=== PATIENT | female | born 1970 | race Caucasian/White ===

== ENCOUNTER 2019-06-24 08:17 | Emergency (ER) | payer BC, SELFPAY ==
[2019-06-24] VITALS (7 sets, daily range): BP systolic 158–191; BP diastolic 98–118; PULSE 83–92; RESP 15–22; TEMP 36.6; O2SAT 90–93; BMI 32.5
--- NOTE | 2019-06-24 08:33 | ED_ITS ---
Entered by Radha Chen, acting as scribe for Pérez Tucker MD Jun 24, 2019 08:17 HPI - SOB/Dyspnea General: Chief Complaint: Shortness of Breath/Dyspnea Stated Complaint: SOB Time Seen by Provider: 06/24/19 08:28 Source: patient Mode of arrival: ambulatory Limitations: no limitations History of Present Illness: HPI Narrative: 49 yo female presents with s hortness of breath. pt states this morning she woke up with increased shortness of breath. pt states she is suppose to wear a C-pap at night but she did not wear it last night due to her mouth being dry. pt states exertion, deep breath and talking makes this worse and nothing makes it better. pt denies any other symptoms at this time. MD elicited complaint: shortness of breath and pain with inspiration Onset (ago): day(s) (today) Context: occurred during exertion Timing: constant and progressively worsening Severity: moderate Exacerbating factors: exertion, talking and deep breaths Relieving factors: nothing Known history of: other (sleep apena, Afib) Associated symptoms: Deny abdominal pain, chest pain, fever(s), nausea or vomiting Treatment prior to arrival: none Related Data: Home oxygen amount: other (Cpap at night) Review of Systems General: Reports: 10 or more systems reviewed and unremarkable except in HPI and below Const: Denies: fever, chills, body aches or change in appetite Eyes: Denies: blurry vision or eye discomfort ENMT: Denies: throat pain or dental pain Card: Denies: chest pain Resp: Reports: shortness of breath GI: Denies: abdominal pain, nausea, vomiting or diarrhea : Denies: painful urination Musc: Denies: neck pain or back pain Skin/Breast: Denies: rash Neuro: Denies: headache Psych: Denies: depression Pawel/Lymph: Denies: easy bruising All/Imm: Denies: hives PFSH ED PFSH: Social History Smoking and tobacco status: never smoked Current gender identity: Female Physical Exam Const: COMMON NORMALS: no apparent distress, oriented x3 and healthy appearing HENMT: COMMON NORMALS: normocephalic and head/scalp atraumatic HEAD & SCALP: normocephalic and atraumatic Eye: COMMON NORMALS: PERRL and EOMs intact bilaterally PUPIL: Yes PERRL Neck/C-Spine: COMMON NORMALS: full ROM and supple Chest: COMMONS NORMALS: inspection of chest normal and palpation of chest normal Cardio: COMMON NORMALS: regular rate, regular rhythm and no murmurs RATE: regular rate RHYTHM: regular rhythm GI: COMMON NORMALS: normal to inspection, nondistended, normoactive bowel sounds, soft to palpation, non-tender and no masses PALPATION: Yes soft Extremity: COMMON NORMALS: normal to inspection and full ROM Neuro: COMMON NORMALS: oriented x3, moves all extremities and no focal motor deficits Psych: COMMON NORMALS: mental status grossly normal, thought process normal and cooperative THOUGHT PROCESS: normal thought process Skin: COMMON NORMALS: no rashes or lesions noted and no wounds GENERAL SKIN EXAM: no rashes or lesions noted Course Vital Signs: Vital signs: Vital Signs Temperature 98 F 06/24/19 08:22 Pulse Rate 86 06/24/19 11:51 Respiratory Rate 15 06/24/19 11:51 Blood Pressure 158/98 06/24/19 11:51 Pulse Oximetry 93 06/24/19 11:51 MDM - SOB/Dyspnea 2 MDM Narrative: Medical decision making narrative: Patient presents here with shortness of breath and was found to have mild pneumonia. Her oxygen saturations here been normal. Her white count is normal as well. Had a long discussion with her and will discharge on doxycycline. I informed her she needs to follow-up with her primary care doctor by the end of the week. She is to return to the ER if worsening. Patient understands and agrees to plan. Lab Data: Labs: Lab Results 06/24/19 06/24/19 06/24/19 Range/Units 08:45 08:45 08:45 WBC 9.1 (4.0-10.0) 10^3/ uL RBC 4.40 (4.1-5.3) 10^6/u L Hgb 13.5 (11.5-15.3) g/dL Hct 40.0 (37.0-47.0) % MCV 90.9 (81-99) fL MCH 30.7 (28.0-34.0) pg MCHC 33.8 (30.0-36.0) g/dL RDW 11.4 L (12.1-15.1) % Plt Count 255 (130-400) 10^3/c mm MPV 10.2 (7.4-10.4) fL Neut % (Auto) 80.8 % Lymph % (Auto) 9.1 % [place] % (Auto) 8.1 % Eos % (Auto) 0.6 % Baso % (Auto) 0.7 % Neut # (Auto) 7.3 (1.8-7.7) 10^3/u L Lymph # (Auto) 0.8 (0.8-4.8) 10^3/u L [place] # (Auto) 0.7 (0.2-0.9) 10^3/u L Eos # (Auto) 0.1 (0.0-0.8) 10^3/u L Baso # (Auto) 0.1 (0.0-0.1) 10^3/u L Nucleated RBC % (a uto) 0 % Nucleated RBCs # 0.0 /100WBC PT 15.10 H (10.5-13.3) SECO NDS INR 1.15 (0.8-1.2) D-Dimer 0.45 (0-0.59) ug/mIFE U Sodium 138 (136-145) mmol/L Potassium 3.2 L (3.5-5.1) mmol/L Chloride 99 (98-107) mmol/L Carbon Dioxide 20 L (22-29) mmol/L Anion Gap 22.2 H (5-19) BUN 10 (6-20) mg/dL Creatinine 1.0 H (0.5-0.9) mg/dL GFR Calculation 58.5 L (90-130) mL/min Glucose 266 H (65-115) mg/dL Calcium 9.7 (8.5-10.5) mg/dL Total Bilirubin 0.3 (0.15-1.2) mg/dL AST 53 H (0-32) U/L ALT 42 H (0-33) U/L Alkaline Phosphata se 70 (35-105) IU/L Troponin T Baselin e (0-10) ng/mL Troponin T 120 Min ralph (0-10) ng/mL NT-Pro-B Natriuret Pep 288 H (0-125) pg/mL Total Protein 8.0 (6.6-8.7) g/dL Albumin 4.1 (3.5-5.2) g/dL Globulin 3.9 (1.3-4.6) g/dL 06/24/19 06/24/19 Range/Units 08:45 10:49 WBC (4.0-10.0) 10^3/ uL RBC (4.1-5.3) 10^6/u L Hgb (11.5-15.3) g/dL Hct (37.0-47.0) % MCV (81-99) fL MCH (28.0-34.0) pg MCHC (30.0-36.0) g/dL RDW (12.1-15.1) % Plt Count (130-400) 10^3/c mm MPV (7.4-10.4) fL Neut % (Auto) % Lymph % (Auto) % [place] % (Auto) % Eos % (Auto) % Baso % (Auto) % Neut # (Auto) (1.8-7.7) 10^3/u L Lymph # (Auto) (0.8-4.8) 10^3/u L [place] # (Auto) (0.2-0.9) 10^3/u L Eos # (Auto) (0.0-0.8) 10^3/u L Baso # (Auto) (0.0-0.1) 10^3/u L Nucleated RBC % (a uto) % Nucleated RBCs # /100WBC PT (10.5-13.3) SECO NDS INR (0.8-1.2) D-Dimer (0-0.59) ug/mIFE U Sodium (136-145) mmol/L Potassium (3.5-5.1) mmol/L Chloride (98-107) mmol/L Carbon Dioxide (22-29) mmol/L Anion Gap (5-19) BUN (6-20) mg/dL Creatinine (0.5-0.9) mg/dL GFR Calculation (90-130) mL/min Glucose (65-115) mg/dL Calcium (8.5-10.5) mg/dL Total Bilirubin (0.15-1.2) mg/dL AST (0-32) U/L ALT (0-33) U/L Alkaline Phosphata se (35-105) IU/L Troponin T Baselin e 20 H (0-10) ng/mL Troponin T 120 Min ralph 17.29 H (0-10) ng/mL NT-Pro-B Natriuret Pep (0-125) pg/mL Total Protein (6.6-8.7) g/dL Albumin (3.5-5.2) g/dL Globulin (1.3-4.6) g/dL Imaging Data^: CXR: Attestation: I personally reviewed and interpreted this imaging study as follows: Radiologist's impression: Patient: Bharti Lawrence Unit #: [id number] : 1970 Age/Sex: 49 / F ADM Date: 06/24/19 Loc: ER Room/Bed: Attending Dr: Ordering Provider/Ordering MD: Pérez Tucker MD Date of Service: 06/24/19 Procedure(s): XR chest 1V portable [id number] Accession Number(s): [id number] Report Number: [id number] WS: [id number] XR chest 1V portable [id number] REASON FOR EXAM: cp FINDINGS: This study shows a patchy infiltrate in the right middle lobe segment. These findings were not evident on February 07, 2019. There is also evidence of a low-grade infiltrate in the left lower lung. The heart and mediastinal interfaces were normal. The hilum and apices normal. No osseous abnormalities. XR/XR chest 1V portable [id number] IMPRESSION: Early pneumonia right middle lobe and left lower lobe. EKG Data^: EKG 1: Attestation: I personally reviewed and interpreted this EKG as follows: EKG Interpretation Date: 06/24/19 EKG interpretation time: 08:40 Interpretation: nsr hr [address] or t wave abnormalities EKG 2: Attestation: I personally reviewed and interpreted this EKG as follows: EKG Interpretation Date: 06/24/19 EKG interpretation time: 11:19 Interpretation: nsr hr [address] or t wave abnormalities qrs 80 qtc 421 Discharge Plan Discharge Patient Disposition: Home, Self-Care Clinical Impression: Community acquired pneumonia Qualifiers: Laterality: right Lung location: unspecified part of lung Qualified Code(s): J18.9 - Pneumonia, unspecified organism Condition: Stable Prescriptions: New doxycycline hyclate 100 mg capsule 100 mg PO BID 10 Days Qty: 20 RF: 0 Discharge Orders: Discharge Order (Routine); Ordered 06/24/19 Ordered By: Pérez Tucker Referrals: Ana Maria Flores MD [Family Provider] - 4-7 days Discharge Diet: Advance as tolerated Discharge Activity: Resume usual activity Patient Instructions: Community-acquired Pneumonia (ED) Discharge Date/Time: 06/24/19 11:52 Coding Level of Care Code ED Heel Gouger for Chg Fwd Exam Comprehensive The documentation recorded by the Gustavo spencer Bridget Annette, accurately reflects the service I personally performed and the decisions made by Garrett rosario Korby, MD Jun 24, 2019 08:17
--- NOTE | 2019-06-24 08:37 | XR_ITS ---
WS: [id number] XR chest 1V portable [id number] REASON FOR EXAM: cp FINDINGS: This study shows a patchy infiltrate in the right middle lobe segment. These findings were not evident on February 07, 2019. There is also evidence of a low-grade infiltrate in the left lower petra ng. The heart and mediastinal interfaces were normal. The hilum and apices normal. No osseous abnormalities. XR/XR chest 1V portable [id number] IMPRESSION: Early pneumonia right middle lobe and left lower lobe.
--- NOTE | 2019-06-24 08:38 | ECG_ITS ---
Measurements Intervals [place] Rate: 0 P: GA: 0 QRS: 0 QRSD: 0 T: 0 QT: 0 QTc: 0 SINUS BRADYCARDIA INDETERMINATE AXIS ABNORMAL RHYTHM ECG WARNING: DATA QUALITY MAY AFFECT INTERPRETATION Compared to ECG 02/15/2019 10:23:54 There is no significant change Electronically Signed On 06-24-2019 19:05:54 CLASS C DRIVER by Sandra Hadley M.D. [id number]
[2019-06-24 08:50] LABS: Basophils # 0.1 10^3/uL (0.0-0.1); Basophils % 0.7 %; Eosinophils # 0.1 10^3/uL (0.0-0.8); Eosinophils % 0.6 %; Hemoglobin 13.5 g/dL (11.5-15.3); Lymphocytes # 0.8 10^3/uL (0.8-4.8); Lymphocytes % 9.1 %; Mean Corpuscular HGB Conc 33.8 g/dL (30.0-36.0); Mean Corpuscular Hemoglobin 30.7 pg (28.0-34.0); Mean Corpuscular Volume 90.9 fL (81-99); Mean Platelet Volume 10.2 fL (7.4-10.4); Monocytes # 0.7 10^3/uL (0.2-0.9); Monocytes % 8.1 %; Neutrophils # 7.3 10^3/uL (1.8-7.7); Neutrophils % 80.8 %; Nucleated Red Blood Cells % 0 %; Platelet Count 255 10^3/cmm (130-400); Red Cell Distribution Width 11.4 % (12.1-15.1); White Blood Count 9.1 10^3/uL (4.0-10.0)
[2019-06-24] MEDS: ipratropium-albuterol 3 mL Neb INHALATION (08:56)
[2019-06-24 09:01] LABS: INR 1.15 (0.8-1.2)
[2019-06-24 09:04] LABS: D Dimer 0.45 ug/mIFEU (0-0.59)
[2019-06-24 09:11] LABS: Troponin(5th) Baseline 20 ng/mL (0-10)
[2019-06-24 09:19] LABS: Alanine Aminotransferase 42 U/L (0-33); Albumin Level 4.1 g/dL (3.5-5.2); Alkaline Phosphatase 70 IU/L (35-105); Anion Gap 22.2 (5-19); Aspartate Amino Transferase 53 U/L (0-32); Blood Urea Nitrogen 10 mg/dL (6-20); Calcium 9.7 mg/dL (8.5-10.5); Carbon Dioxide 20 mmol/L (22-29); Chloride 99 mmol/L (98-107); Globulin 3.9 g/dL (1.3-4.6); Glomerular Filtration Rate 58.5 mL/min (90-130); Glucose 266 mg/dL (65-115); NT Pro B Type Natriuretic Pept 288 pg/mL (0-125); Potassium 3.2 mmol/L (3.5-5.1); Sodium 138 mmol/L (136-145); Total Bilirubin 0.3 mg/dL (0.15-1.2)
[2019-06-24] MEDS: dexamethasone 10 mg/mL INJ IVP (10:17)
[2019-06-24] MEDS: doxycycline 100 MG in sodium chloride 0.9% (plus) 100 ML IV (10:21)
--- NOTE | 2019-06-24 10:38 | ECG_ITS ---
Measurements Intervals [place] Rate: 85 P: 20 MI: 133 QRS: 18 QRSD: 80 T: 53 QT: 379 QTc: 452 SINUS RHYTHM Compared to ECG 02/15/2019 10:23:54 No significant changes Electronically Signed On 06-24-2019 19:10:27 GROUP HOME PARAPROFESSIONAL by Sandra Hadley M.D. [email or web address]
[2019-06-24 11:17] LABS: Troponin 5 2HR 17.29 ng/mL (0-10)
[2019-06-24 11:55] LABS: Troponin 5 2HR Delta -2.71 ABS# (0-10)
== END 2019-06-24 11:52 | disposition home or self-care (01) ==
PROVIDERS: Emergency Provider Emergency Medicine; Family Provider Internal Medicine
DX: J18.9 Pneumonia, unspecified organism (principal); G47.30 Sleep apnea, unspecified; I48.91 Unspecified atrial fibrillation; Z99.89 Dependence on other enabling machines and devices
CPT/HCPCS: 36415; 71045; 80053; 83880; 84484; 85025; 85378; 85610; 93005; 94640; 96365; 96375; 99283; 99284; J1100; J3490; J7050; J7611

== ENCOUNTER 2019-06-28 18:06 | Outpatient (CLI) | payer BC, SELFPAY ==
--- NOTE | 2019-06-28 18:35 | XR_ITS ---
WS: [id number] Chest 2 views, 06/28/2019 Clinical Data: PNEUMONIA Comparison: Portable chest, 06/24/2019. Findings: No nodules, masses or effusions are seen. The heart is normal. The pulmonary vascularity is not increased. No pneumonia or pneumothorax is seen. The previously noted right lung infiltrate has cleared. XR/XR chest 2V* [id number] Impression: Negative chest.
[2019-06-28 18:54] LABS: Basophils # 0.1 10^3/uL (0.0-0.1); Basophils % 0.6 %; Eosinophils % 0.3 %; Hematocrit 46.8 % (37.0-47.0); Hemoglobin 15.6 g/dL (11.5-15.3); Lymphocytes # 1.2 10^3/uL (0.8-4.8); Lymphocytes % 10.1 %; Mean Corpuscular HGB Conc 33.3 g/dL (30.0-36.0); Mean Corpuscular Hemoglobin 31.4 pg (28.0-34.0); Mean Corpuscular Volume 94.2 fL (81-99); Mean Platelet Volume 10.8 fL (7.4-10.4); Monocytes % 8.3 %; Neutrophils # 9.3 10^3/uL (1.8-7.7); Neutrophils % 80.2 %; Nucleated Red Blood Cells % 0 %; Platelet Count 287 10^3/cmm (130-400); Red Blood Count 4.97 10^6/uL (4.1-5.3); Red Cell Distribution Width 11.7 % (12.1-15.1); White Blood Count 11.6 10^3/uL (4.0-10.0)
[2019-06-28 18:58] LABS: Alanine Aminotransferase 50 U/L (0-33); Albumin Level 4.6 g/dL (3.5-5.2); Alkaline Phosphatase 79 IU/L (35-105); Anion Gap 24.4 (5-19); Aspartate Amino Transferase 55 U/L (0-32); Blood Urea Nitrogen 24 mg/dL (6-20); Calcium 10.9 mg/dL (8.5-10.5); Carbon Dioxide 20 mmol/L (22-29); Chloride 94 mmol/L (98-107); Globulin 4.6 g/dL (1.3-4.6); Glucose 179 mg/dL (65-115); Potassium 3.4 mmol/L (3.5-5.1); Sodium 135 mmol/L (136-145); Total Bilirubin 0.8 mg/dL (0.15-1.2); Total Protein 9.2 g/dL (6.6-8.7)
== END 2019-06-28 18:07 | disposition home or self-care (01) ==
LOC: LAB 18:09
PROVIDERS: Family Provider Internal Medicine; Visit Provider Nurse Practitioner Family
DX: J18.9 Pneumonia, unspecified organism (principal); R05 Cough; R06.00 Dyspnea, unspecified
CPT/HCPCS: 36415; 71046; 80053; 85025

== ENCOUNTER 2019-07-14 11:43 | Emergency (ER) | payer BC, SELFPAY ==
[2019-07-14 11:46] VITALS: BP 139/114; PULSE 100; RESP 16; TEMP 36.7; O2SAT 96; BMI 31.7
--- NOTE | 2019-07-14 12:03 | ECG_ITS ---
Measurements Intervals [place] Rate: 98 P: 45 [place]: 131 QRS: 61 QRSD: 82 T: 49 QT: 358 QTc: 459 SINUS RHYTHM Compared to ECG 06/24/2019 11:19:16 No significant changes Electronically Signed On 07-14-2019 19:33:58 CDT by Boone Sherwood M.D. [email or web address]
[2019-07-14 12:26] LABS: Basophils % 0.6 %; Eosinophils % 0.3 %; Hematocrit 37.8 % (37.0-47.0); Hemoglobin 12.5 g/dL (11.5-15.3); Lymphocytes # 0.5 10^3/uL (0.8-4.8); Lymphocytes % 7.4 %; Mean Corpuscular HGB Conc 33.1 g/dL (30.0-36.0); Mean Corpuscular Hemoglobin 30.4 pg (28.0-34.0); Mean Platelet Volume 10.3 fL (7.4-10.4); Monocytes # 0.5 10^3/uL (0.2-0.9); Monocytes % 7.2 %; Neutrophils # 6.1 10^3/uL (1.8-7.7); Neutrophils % 84.2 %; Nucleated Red Blood Cells % 0 %; Platelet Count 209 10^3/cmm (130-400); Red Blood Count 4.11 10^6/uL (4.1-5.3); Red Cell Distribution Width 11.8 % (12.1-15.1); White Blood Count 7.2 10^3/uL (4.0-10.0)
[2019-07-14 12:41] LABS: Alanine Aminotransferase 56 U/L (0-33); Albumin Level 3.9 g/dL (3.5-5.2); Alkaline Phosphatase 72 IU/L (35-105); Anion Gap 20.5 (5-19); Aspartate Amino Transferase 78 U/L (0-32); Blood Urea Nitrogen 9 mg/dL (6-20); Calcium 10.2 mg/dL (8.5-10.5); Carbon Dioxide 21 mmol/L (22-29); Chloride 99 mmol/L (98-107); D Dimer 0.41 ug/mIFEU (0-0.59); Globulin 3.9 g/dL (1.3-4.6); Glomerular Filtration Rate 58.5 mL/min (90-130); Glucose 277 mg/dL (65-115); Osmolality Calculated 290 mOsm/kg (285-295); Potassium 3.5 mmol/L (3.5-5.1); Sodium 137 mmol/L (136-145); Total Bilirubin 0.7 mg/dL (0.15-1.2); Total Protein 7.8 g/dL (6.6-8.7)
[2019-07-14 12:43] LABS: Troponin(5th) Baseline 16 ng/mL (0-10)
--- NOTE | 2019-07-14 12:56 | XR_ITS ---
WS: [id number] Portable AP upright chest, 07/14/2019 Clinical Data: cough Comparison: PA and lateral chest, 06/28/2019 Findings: No nodules, masses or effusions are seen. The heart is normal. The pulmonary vascularity is not increased. No pneumonia or pneumothorax is seen. There is still haziness at the left cardiophren ic angle above the diaphragm but this probably represents atelectasis. There is still a mild residual opacity in the anterior segment of the right upper lobe. XR/XR chest 1V portable [id number] Impression: 1. Minimal opacities in the anterior segment of the right upper lobe and in the lingula of the left upper lobe unchanged. 2. No acute cardiopulmonary disease is seen.
--- NOTE | 2019-07-14 12:56 | ED_ITS ---
HPI - Chest Pain General: Chief Complaint: Chest Pain Stated Complaint: SOB, CHEST IS TIGHT Time Seen by Provider: 07/14/19 12:53 History of Present Illness: HPI narrative: Cough x2 weeks. Sent from Dr. Becerra's office with suspected high d-dimer. D-dimer is negative here. Patient said she has had a nonproductive cough for 2 weeks and it is seems to be worsening. Was diagnosed bronchitis and has been on her second round antibiotics MD complaint: other (Cough) Onset (ago): week(s) Timing of current episode: constant Prior episodes: Yes Context: recent illness Associated symptoms: Deny abdominal pain, dyspnea, fever(s), nausea or vomiting Review of Systems Const: Denies: fever, chills or body aches Eyes: Denies: change in vision or blurry vision ENMT: Denies: throat pain or nasal congestion Card: Denies: chest pain or shortness of breath on exertion Resp: Reports: non-productive cough; Denies: shortness of breath or productive cough GI: Denies: abdominal pain, nausea or vomiting Musc: Denies: extremity pain Skin/Breast: Denies: rash Neuro: Denies: headache Psych: Denies: anxiety or depression Pawel/Lymph: Denies: easy bruising PFSH ED PFSH: Social History Smoking and tobacco status: former smoker Current gender identity: Female Physical Exam Const: COMMON NORMALS: no apparent distress, average body habitus and oriented x3 HENMT: COMMON NORMALS: normocephalic HEAD & SCALP: normal to inspection and normocephalic FACE & SINUS: normal facial exam Eye: COMMON NORMALS: conjunctivae normal GENERAL EYE: normal appearance of both eyes CONJUNCTIVA: Yes conjunctivae normal Neck/C-Spine: COMMON NORMALS: no JVD Chest: COMMONS NORMALS: inspection of chest normal Resp: COMMON NORMALS: normal respiratory effort and clear to auscultation bilaterally AUSCULTATION: clear to auscultation bilaterally Cardio: COMMON NORMALS: no JVD, regular rate and regular rhythm RATE: regular rate RHYTHM: regular rhythm GI: COMMON NORMALS: normal to inspection, nondistended, normoactive bowel sounds Extremity: COMMON NORMALS: normal to inspection and full ROM Neuro: COMMON NORMALS: oriented x3 Course Vital Signs: Vital signs: Vital Signs Temperature 98.1 F 03/11/20 11:46 Pulse Rate 100 07/14/19 11:46 Respiratory Rate 16 07/14/19 11:46 Blood Pressure 139/114 07/14/19 11:46 Pulse Oximetry 96 07/14/19 11:46 MDM - Chest Pain Lab Data: Labs: Lab Results 07/14/19 07/14/19 07/14/19 Range/Units 12:14 12:14 12:14 WBC 7.2 (4.0-10.0) 10^3/ uL RBC 4.11 (4.1-5.3) 10^6/u L Hgb 12.5 (11.5-15.3) g/dL Hct 37.8 (37.0-47.0) % MCV 92.0 (81-99) fL MCH 30.4 (28.0-34.0) pg MCHC 33.1 (30.0-36.0) g/dL RDW 11.8 L (12.1-15.1) % Plt Count 209 (130-400) 10^3/c mm MPV 10.3 (7.4-10.4) fL Neut % (Auto) 84.2 % Lymph % (Auto) 7.4 % [place] % (Auto) 7.2 % Eos % (Auto) 0.3 % Baso % (Auto) 0.6 % Neut # (Auto) 6.1 (1.8-7.7) 10^3/u L Lymph # (Auto) 0.5 L (0.8-4.8) 10^3/u L [place] # (Auto) 0.5 (0.2-0.9) 10^3/u L Eos # (Auto) 0.0 (0.0-0.8) 10^3/u L Baso # (Auto) 0.0 (0.0-0.1) 10^3/u L Nucleated RBC % (a uto) 0 % Nucleated RBCs # 0.0 /100WBC D-Dimer 0.41 (0-0.59) ug/mIFE U Sodium 137 (136-145) mmol/L Potassium 3.5 (3.5-5.1) mmol/L Chloride 99 (98-107) mmol/L Carbon Dioxide 21 L (22-29) mmol/L Anion Gap 20.5 H (5-19) BUN 9 (6-20) mg/dL Creatinine 1.0 H (0.5-0.9) mg/dL GFR Calculation 58.5 L (90-130) mL/min Glucose 277 H (65-115) mg/dL Calculated Osmolal ity 290 (285-295) mOsm/k g Calcium 10.2 (8.5-10.5) mg/dL Total Bilirubin 0.7 (0.15-1.2) mg/dL AST 78 H (0-32) U/L ALT 56 H (0-33) U/L Alkaline Phosphata se 72 (35-105) IU/L Troponin T Baselin e (0-10) ng/mL Total Protein 7.8 (6.6-8.7) g/dL Albumin 3.9 (3.5-5.2) g/dL Globulin 3.9 (1.3-4.6) g/dL 07/14/19 Range/Units 12:14 WBC (4.0-10.0) 10^3/ uL RBC (4.1-5.3) 10^6/u L Hgb (11.5-15.3) g/dL Hct (37.0-47.0) % MCV (81-99) fL MCH (28.0-34.0) pg MCHC (30.0-36.0) g/dL RDW (12.1-15.1) % Plt Count (130-400) 10^3/c mm MPV (7.4-10.4) fL Neut % (Auto) % Lymph % (Auto) % [place] % (Auto) % Eos % (Auto) % Baso % (Auto) % Neut # (Auto) (1.8-7.7) 10^3/u L Lymph # (Auto) (0.8-4.8) 10^3/u L [place] # (Auto) (0.2-0.9) 10^3/u L Eos # (Auto) (0.0-0.8) 10^3/u L Baso # (Auto) (0.0-0.1) 10^3/u L Nucleated RBC % (a uto) % Nucleated RBCs # /100WBC D-Dimer (0-0.59) ug/mIFE U Sodium (136-145) mmol/L Potassium (3.5-5.1) mmol/L Chloride (98-107) mmol/L Carbon Dioxide (22-29) mmol/L Anion Gap (5-19) BUN (6-20) mg/dL Creatinine (0.5-0.9) mg/dL GFR Calculation (90-130) mL/min Glucose (65-115) mg/dL Calculated Osmolal ity (285-295) mOsm/k g Calcium (8.5-10.5) mg/dL Total Bilirubin (0.15-1.2) mg/dL AST (0-32) U/L ALT (0-33) U/L Alkaline Phosphata se (35-105) IU/L Troponin T Baselin e 16 H (0-10) ng/mL Total Protein (6.6-8.7) g/dL Albumin (3.5-5.2) g/dL Globulin (1.3-4.6) g/dL Coding Level of Care Code ED Electric Melt Operator for Chg Horace
[2019-07-14 13:36] VITALS: BP 174/102; PULSE 100; RESP 20; O2SAT 93
== END 2019-07-14 13:37 | disposition home or self-care (01) ==
LOC: ER 13:37
PROVIDERS: Emergency Medicine; Emergency Provider Nurse Practitioner Family; Family Provider Internal Medicine
DX: R07.89 Other chest pain (principal); R06.02 Shortness of breath; R05 Cough; Z87.891 Personal history of nicotine dependence
CPT/HCPCS: 12345; 71045; 80053; 84484; 85025; 85378; 93005; 99281; 99283

== ENCOUNTER 2019-08-26 12:23 | Outpatient (CLI) | payer BC, SELFPAY ==
--- NOTE | 2019-08-26 12:45 | CT_ITS ---
WS: [id number] CT CHEST AND ABDOMEN WITH CONTRAST HISTORY: DYSPNEA AT REST/PANCREATITIS/ NECROSIS? TECHNIQUE: Axial imaging is performed through the chest and abdomen IV contrast. Sagittal and coronal reformats. All CT scans at [facility] use at least one of these dose optimization techni ques: automated exposure control; mA and/or kV adjustment per patient size (includes targeted exams w here dose is matched to clinical indication); or iterative reconstruction. CONTRAST: Omnipaque 300; 95 mL IV. DLP: 2031.82 mGycm COMPARISON: None available. Chest CT: Pulmonary hyperexpansion with chronic emphysema. There are a few very subtle groundglass opacificatio ns scattered throughout the lungs. Mild tree-in-bud airspace disease within the periphery and greates t at the lung bases and at the lingula and RIGHT middle lobe. There is also evidence for prior granul omatous disease. No pericardial or pleural effusions. No significant lymphadenopathy. Mild atherosclerosis aorta. Lobulated mass measuring 2.0 cm in the LEFT breast has been previously described by mammography and s table. Abdomen CT: Marked hepatomegaly with hepatic steatosis. Liver extends over a length of 21 cm. No bile duct dilata tion or mass. Portal vein is patent. Gallbladder: Normal. Pancreas: There is mild edema and stranding surrounding the pancreas. No fluid or pseudocyst. Pancrea tic duct is normal size. Small amount of air near the pancreatic head which may be a duodenal diverti culum. Spleen: Normal size with granulomata. Normal adrenal glands. Right kidney: Normal. Left kidney: Normal. Abdominal aorta: Mild atherosclerosis. Gastrointestinal tract: As visualized are normal. Suspect a small duodenal diverticulum near the panc reatic head. Osseous structures: Lumbar spondylosis. No osseous destructions. CT/CT chest abdomen w con* IMPRESSION: 1. Mid and lower lung tree-in-bud opacifications. Most likely due to endobronc hial pneumonia or atypical pneumonia. 2. Chronic emphysema. 3. Severe hepatomegaly and hepatic steatosis. 4. Mild pancreatitis without hemorrhage or pseudocyst. 5. Long-term stability 2.0 cm LEFT breast mass.
[2019-08-26] MEDS: iohexol 300 mg/mL 100 mL Btl IV (13:35)
== END 2019-08-26 12:24 | disposition home or self-care (01) ==
LOC: RADWPI 12:27
PROVIDERS: Family Provider Internal Medicine; PCP Internal Medicine; Visit Provider Internal Medicine
DX: R06.09 Other forms of dyspnea (principal); J43.9 Emphysema, unspecified; R16.0 Hepatomegaly, not elsewhere classified; K76.0 Fatty (change of) liver, not elsewhere classified; K85.90 Acute pancreatitis without necrosis or infection, unspecified; N63.20 Unspecified lump in the left breast, unspecified quadrant
CPT/HCPCS: 71260; 74160; Q9967

== ENCOUNTER 2019-11-24 11:04 | Outpatient (CLI) | payer BC, SELFPAY ==
--- NOTE | 2019-11-24 11:00 | USCV_ITS ---
Bharti Lawrence Age: 49 Gender: F : 1970 Exam Date: 11/24/2019 11:36 Ordering Phys: Mu Wilson MD Technologist: Dottie Verdugo Exam Location: [facility] [place] Indication: SHORT OF BREATH BP: / HR: 85 Rhythm: Sinus Technical Quality: Good MEASUREMENTS (Male / Female) Normal Values 2D ECHO LV Diastolic Diameter PLAX 3.8 cm 4.2 - 5.9 / 3.9 - 5.3 cm LV Systolic Diameter PLAX 1.6 cm IVS Diastolic Thickness 1.4 cm 0.6 - 1.0 / 0.6 - 0.9 cm IVS Systolic Thickness 1.7 cm LVPW Diastolic Thickness 0.8 cm 0.6 - 1.0 / 0.6 - 0.9 cm LVPW Systolic Thickness 2.4 cm LVOT Diameter 2.1 cm LV Ejection Fraction 2D Teich 88.7 % LV Ejection Fraction MOD 2C 80.4 % LV Ejection Fraction 2C AL 84.0 % LA Diameter 3.2 cm LA Width 2.9 cm LA Height 3.6 cm RA Width 3.2 cm RA Height 4.2 cm M-MODE LV Diastolic Diameter MM 4.3 cm 4.2 - 5.9 / 3.9 - 5.3 cm LV Systolic Diameter MM 1.8 cm LV Ejection Fraction MM Teich 88.0 % IVS Diastolic Thickness MM 1.3 cm 0.6 - 1.0 / 0.6 - 0.9 cm IVS Systolic Thickness MM 1.8 cm LVPW Diastolic Thickness MM 1.1 cm 0.6 - 1.0 / 0.6 - 0.9 cm LVPW Systolic Thickness MM 2.2 cm Aortic Annulus Diameter 3.1 cm LA Ao Ratio MM 1.0 MV E Point Septal Separation 0.3 cm DOPPLER AV Peak Velocity 157.0 cm/s LVOT Peak Velocity 129.0 cm/s AV Area Cont Eq vti 3.1 cm squared AV Area Cont Eq pk 2.7 cm squared MV Peak Velocity 92.0 cm/s MV Area PHT 4.4 cm squared Mitral E to A Ratio 0.6 MV E' Velocity 9.0 cm/s Mitral E to MV E' Ratio 8.0 Mitral E to LV E' Lateral Ratio 6.8 Mitral E to LV E' Septal Ratio 10.0 TR Peak Velocity 129.0 cm/s TR Peak Gradient 6.6 mmHg Right Atrial Pressure 3.0 mmHg Pulmonary Artery Systolic Pressu 9.7 mmHg PV Peak Velocity 121.0 cm/s RV Acceleration Time 0.1 s FINDINGS Left Ventricle Normal left ventricular cavity size. Mild left ventricular hypertrophy. Normal left ventricular systolic function. No regional wall motion abnormalities. Grade I/IV diastolic dysfunction (abnormal relaxation filling pattern), normal to mildly elevated filling pressures. Left ventricular ejection fraction is estimated at 65 %. Right Ventricle Normal right ventricular size and systolic function. Normal right ventricular systolic pressure. Right Atrium The right atrium is normal in size. Left Atrium The left atrium is normal in size. Mitral Valve Structurally normal mitral valve without significant stenosis or prolapse. There is no mitral regurgitation. Aortic Valve Structurally normal aortic valve without significant sclerosis or stenosis. There is no aortic regurgitation. Tricuspid Valve Structurally normal tricuspid valve. Trace tricuspid valve regurgitation. Pulmonic Valve Pulmonic valve not well visualized. Pericardium There is a tiny pericardial effusion which is hemodynamically insignificant. Aorta Normal ascending aorta dimension. CONCLUSIONS Normal left ventricular cavity size. Mild left ventricular hypertrophy. Normal left ventricular systolic function. No regional wall motion abnormalities. Grade I/IV diastolic dysfunction (abnormal relaxation filling pattern), normal to mildly elevated filling pressures. Left ventricular ejection fraction is estimated at 65 %. There is a tiny pericardial effusion which is hemodynamically insignificant. There are no prior echocardiogram studies to compare. Dr. Boone Sherwood MD (Electronically Signed) Final Date: 24 November 2019 17:01 S
== END 2019-11-24 11:05 | disposition home or self-care (01) ==
LOC: RT 11:09 → RAD 11:11
PROVIDERS: Family Provider Internal Medicine; PCP Internal Medicine; Visit Provider Internal Medicine Critical Care Medicine
DX: R06.02 Shortness of breath (principal); I51.81 Takotsubo syndrome
CPT/HCPCS: 93306

== ENCOUNTER 2019-11-29 12:22 | Outpatient (CLI) | payer BC, SELFPAY ==
[2019-11-29 15:21] VITALS: O2SAT 97
--- NOTE | 2019-11-29 15:34 | PFTS_ITS ---
Date of Study:11/29/19 Date of Dictation: MECHANICS: Forced vital capacity (FVC) is normal. Forced expiratory volume in one second (FEV1) is normal. FEV1/FVC is normal. FLOW VOLUME LOOP: Normal. LUNG VOLUMES: Unable to do because of claustrophobia DIFFUSING CAPACITY FOR CARBON MONOXIDE: Mild reduced INTERPRETATION: The pulmonary function tests are normal. There is no significant postbronchodilator response. Lung volumes were not performed because of claustrophobia. Gas exchange (DLCO) is mildly reduced. MTDD
== END 2019-11-29 12:23 | disposition home or self-care (01) ==
PROVIDERS: Family Provider Internal Medicine; PCP Internal Medicine; Visit Provider Internal Medicine Critical Care Medicine
DX: J43.9 Emphysema, unspecified (principal)
CPT/HCPCS: 94060; 94729; J7611

== ENCOUNTER 2020-02-11 11:26 | Outpatient (CLI) | payer BC, SELFPAY ==
--- NOTE | 2020-02-11 11:36 | MM_ITS ---
WS: [id number] Bilateral screening digital mammogram, 02/11/2020 Clinical Data: SCREENING Comparison: 10/12/2018, 07/25/2017, 07/11/2015, 04/11/2014, 12/30/2012, 03/20/2011, 02/21/2010, 02/24/2009, 02/18/2008. Findings: The breast parenchymal pattern shows fat replacement. No spiculated masses or clustered calcification s are seen. There are no secondary signs of carcinoma. The well-defined central left lung nodule marycarmen uring 2.4 cm has not changed. However there is a small density measuring 1.02 x 1.46 cm in the inferi or aspect of the left breast seen on only on the MLO view. This density has developed since the last mammogram. MM/[place] [id number] Impression: 1. 1.46 x 1.02 density in the inferior aspect of the left breast seen only on the MLO view. 2. Recommend ML view and exaggerated CC view of the left breast. 3. Recommend left breast ultrasound. BIRADS: 0-Incomplete: Need additional imaging evaluation FOLLOW UP: See Report The CAD design checker was used.
== END 2020-02-11 11:27 | disposition home or self-care (01) ==
LOC: RADSHAW 11:34
PROVIDERS: PCP Internal Medicine; Visit Provider Internal Medicine
DX: Z12.31 Encounter for screening mammogram for malignant neoplasm of breast (principal); N63.20 Unspecified lump in the left breast, unspecified quadrant
CPT/HCPCS: 77067

== ENCOUNTER 2020-03-07 11:32 | Outpatient (CLI) | payer BC, SELFPAY ==
--- NOTE | 2020-03-07 11:38 | MM_ITS ---
WS: [id number] breast diagnostic digital mammogram, 03/07/2020 Clinical Data: ABNORMAL MAMMOGRAM LT BREAST Comparison: 03/07/2020, 10/12/2018. Findings: The well-defined left breast density in the central portion of the left breast has not changed. The i ll-defined density in the inferior aspect of the left breast is not seen on the compression cc view. It is seen in the inferior aspect of the left breast on the ML and MLO compression view. It measures 0.71 x 1.31 cm.. There are no associated calcifications. MM/[place] [id number] Impression: 1. Left breast ultrasound. 2. Nonspecific left breast density inferior aspect left breast. BIRADS: 3-Probably Benign FOLLOW UP: See Report The CAD program checker was used.
--- NOTE | 2020-03-07 11:38 | US_ITS ---
WS: [id number] Left breast ultrasound, 03/07/2020 Clinical Data: ABNORMAL MAMMOGRAM LT BREAST Comparison: None. Findings: In the central portion of the left breast at 1:00 2 cm from the nipple the well-defined density shows a definite border with internal echoes. There are also septations. Because this is not changed for s everal years no biopsy is necessary. This lesion measures 1.33 x 2.24 x 2.3 cm. The ill-defined density in the inferior left breast was not easily imaged imaged by ultrasound. The ultrasound images were done at 3-4cm from the nipple from the 2:00 to the 5:00 position. There was a small lesion measuring 0.27 x 0.42 x 0.48 cm which had a well-defined border and a central nidus. Thi s small lesion may or may not represent the area noted on the mammogram. US/US breast LT limited* [id number] Impression: 1. Probable complex cyst which is a large well-defined lesion unchanged over ye ars. 2. No definite lesion is seen in the inferior aspect the left breast and follow -up mammogram in 6 months is recommended to note any change in this area. BIRADS: 3-Probably Benign FOLLOW UP: 6 Month Follow-up
== END 2020-03-07 11:33 | disposition home or self-care (01) ==
LOC: RADSHAW 11:36
PROVIDERS: PCP Internal Medicine; Visit Provider Internal Medicine
DX: R92.8 Other abnormal and inconclusive findings on diagnostic imaging of breast (principal); N64.89 Other specified disorders of breast
CPT/HCPCS: 76642; 77065

== ENCOUNTER 2020-05-02 08:26 | Outpatient (CLI) | payer BC, SELFPAY ==
--- NOTE | 2020-05-02 08:48 | CT_ITS ---
WS: [id number] Exam: CT chest wo con [id number] Date/Time of Exam: 05/02/2020 8:48 AM Reason For Exam: INTERSTITIAL PULMONARY DISEASE DLP: 1009.[address] scans at [facility] use at least one of these dose optimization techniques: automat ed exposure control; mA and/or kV adjustment per patient size (includes targeted exams where dose is matched to clinical indication); or iterative reconstruction. Comparison 08/26/2019. The lungs are fully expanded. Emphysematous changes are noted. Moderate sized posterior left pleural effusion noted with small posterior right pleural effusion. No suspicious pulmonary nodule or mass. No pericardial effusion. Mild mediastinal lymphadenopathy which is a change since the previous study. The largest node is in the AP window and measures about 12 mm at greatest short axis dimension. The thoracic aorta is normal in caliber. The airway is patent. Mild coronary artery calcifications. Uncha nged 2 cm left breast nodule. No destructive bone lesions or chest wall defects. Marked hepatic steat osis. CT/CT chest wo con [id number] IMPRESSION: 1. Bilateral pleural effusions most marked on the right. 2. Emphysematous changes noted. No acute infiltrate or pulmonary mass. 3. Mild mediastinal lymphadenopathy which represents a change since the previou s study. 4. Unchanged 2 cm left breast nodule.
== END 2020-05-02 08:27 | disposition home or self-care (01) ==
LOC: RADWPI 08:28
PROVIDERS: PCP Internal Medicine; Visit Provider Internal Medicine
DX: J84.9 Interstitial pulmonary disease, unspecified (principal); J90 Pleural effusion, not elsewhere classified; R59.0 Localized enlarged lymph nodes; N63.20 Unspecified lump in the left breast, unspecified quadrant
CPT/HCPCS: 71250

== ENCOUNTER 2020-07-04 20:00 | Outpatient (CLI) | payer BC, SELFPAY | END 2020-07-04 20:01 | disposition home or self-care (01) | LOC: SLEEP 07-05 08:37 | PROVIDERS: PCP Internal Medicine; Visit Provider Internal Medicine | DX: G47.33 Obstructive sleep apnea (adult) (pediatric) (principal) | CPT/HCPCS: 95811 ==

== ENCOUNTER 2022-04-04 06:00 | Outpatient (RCR) | payer MEDICARE, BC, MEDICAID, SELFPAY | END 2022-05-04 23:59 | disposition home or self-care (01) | LOC: SPT 06:00 | PROVIDERS: PCP Internal Medicine; Visit Provider Internal Medicine | DX: M51.17 Intervertebral disc disorders with radiculopathy, lumbosacral region (principal); M54.31 Sciatica, right side | CPT/HCPCS: 97110; 97162 ==

== ENCOUNTER 2022-05-03 05:09 | Inpatient (IN) | payer MEDICARE, BC, MEDICAID, SELFPAY ==
[2022-05-03] VITALS (36 sets, daily range): BP systolic 135–254; BP diastolic 87–157; PULSE 71–104; RESP 16–31; TEMP 36.7–37.1; O2SAT 89–99; BMI 30.9; BMI 32.1
--- NOTE | 2022-05-03 05:14 | XRR_ITS ---
PROCEDURE INFORMATION: Exam: XR Chest Exam date and time: 05/03/2022 5:46 AM Age: 52 years old Clinical indication: Patient HX: Hypertensive crisis with n/v. Systolic over 220. ; Additional info: HTN TECHNIQUE: Imaging protocol: Radiologic exam of the chest. Views: 1 view. COMPARISON: CT chest con [id number] 05/02/2020 8:58 AM FINDINGS: Lungs: There are normal lung volumes. There is minimal accentuation of the pulmonary vascularity. There are no confluent interstitial or airspace opacities. Pleural spaces: There are no pleural effusions or pneumothorax. Heart/Mediastinum: The heart size is normal. There is a mildly tortuous thoracic aorta. The trachea is in the midline. Bones/joints: No acute abnormalities. Mild shoulder degenerative changes are seen. There is mild osteopenia. XR/XR chest 1V portable [id number] IMPRESSION: No confluent infiltrates in the lungs.
--- NOTE | 2022-05-03 05:17 | W.ED.NAVMDI ---
Documented by User: Pérez Tucker MD 05/03/22 05:40 HPI - Nausea/Vomiting/Diarrhea General: Chief complaint: Nausea/Vomiting/Diarrhea Stated complaint: htn Time Seen by Provider: 05/03/22 05:14 Source: patient and EMS Mode of arrival: EMS Limitations: no limitations History of Present Illness: 52-year-old female has a history of alcoholism states she has not had a drink in a week states she has had progressively worsening tremors states that tonight she was severely hypertensive with tremors along with diaphoresis she is diaphoretic here with a tremor her blood pressure is 228/116. She states she had multiple episodes of vomiting as well she denies any pain anywhere. Associated nausea: Yes Associated symtoms: Reports dizziness and nausea; Denies chest pain or dysuria Review of Systems Const: Denies: fever(s), chills, body aches or change in appetite Eyes: Denies: blurry vision or eye discomfort ENMT: Denies: throat pain or dental pain Card: Denies: chest pain Resp: Denies: dyspnea GI: Reports: nausea and vomiting : Denies: dysuria Musc: Denies: neck pain or back pain Skin/Breast: Denies: rash Neuro: Reports: dizziness Psych: Denies: depression Pawel/Lymph: Denies: easy bruising All/Imm: Denies: urticaria PFSH ED PFSH: Medical History (Updated 05/03/22 @ 07:05 by Mick English DO) Depression GERD (gastroesophageal reflux disease) HTN (hypertension) Hypercholesteremia Hypothyroidism (acquired) Kidney stone FREDY (obstructive sleep apnea) Type 2 diabetes mellitus Family History Other Afib CAD (coronary artery disease) Diabetes Hyperlipidemia Hypertension Social History Smoking and tobacco status: never smoked Second hand smoke exposure: Yes Alcohol intake: current Alcohol intake frequency: holidays/special occasions only Lives independently: Yes Household members: spouse Marital status: Current occupational status: employed Current occupational exposures/hazards: No History of recent travel: No Current gender identity: Female Physical Exam Const: COMMON NORMALS: patient oriented x3 GENERAL APPEARANCE: in distress, ill appearing and diaphoretic HENMT: COMMON NORMALS: normocephalic and atraumatic HEAD & SCALP: normocephalic and atraumatic Eye: COMMON NORMALS: Equal, round and reactive pupils present and EOMs intact bilaterally PUPIL: Yes Equal, round and reactive pupils present Neck/C-Spine: COMMON NORMALS: full ROM and supple Chest: COMMONS NORMALS: normal inspection of the chest and normal palpation of entire chest wall Resp: COMMON NORMALS: normal respiratory effort, No retractions, No use of accessory muscles and clear to auscultation bilaterally AUSCULTATION: clear to auscultation bilaterally Cardio: COMMON NORMALS: regular rhythm and No murmurs present (Cardio) RATE: tachycardic RHYTHM: regular rhythm GI: COMMON NORMALS: Normal to inspection, nondistended, normoactive bowel sounds present, Soft to palpation, non-tender and no masses PALPATION: Yes Soft to palpation Extremity: COMMON NORMALS: normal to inspection and full ROM Neuro: COMMON NORMALS: patient oriented x3, moves all extremities and no focal motor deficits Psych: COMMON NORMALS: mental status grossly normal, Normal thought process present and cooperative THOUGHT PROCESS: Normal thought process present Skin: COMMON NORMALS: no rashes or lesions noted and no wounds GENERAL SKIN EXAM: no rashes or lesions noted Course Vital Signs: Vital signs: Vital Signs Temperature 98.8 F 05/03/22 05:10 Pulse Rate 81 05/03/22 06:30 Respiratory Rate 17 05/03/22 06:30 Blood Pressure 188/157 05/03/22 06:30 Pulse Oximetry 93 05/03/22 06:30 Oxygen Delivery Me thod 05/03/22 06:30 MDM - Nausea/Vomiting/Diarrhea Lab Data 05/03/22 05:30 05/03/22 05:30 Laboratory Results WBC 7.9 10^3/uL (4.0-10.0) 05/03/22 05:30 RBC 4.26 10^6/uL (4.1-5.3) 05/03/22 05:30 Hgb 13.5 g/dL (11.5-15.3) 05/03/22 05:30 Hct 41.4 % (37.0-47.0) 05/03/22 05:30 MCV 97.2 fl (81-99) 05/03/22 05:30 MCH 31.7 pg (28.0-34.0) 05/03/22 05:30 MCHC 32.6 g/dL (30.0-36.0) 05/03/22 05:30 RDW 12.5 % (12.1-15.1) 05/03/22 05:30 Plt Count 205 10^3/cmm (130-400) 05/03/22 05:30 MPV 11.0 fL (7.4-10.4) H 05/03/22 05:30 Neut % (Auto) 80.3 % 05/03/22 05:30 Lymph % (Auto) 10.2 % 05/03/22 05:30 Dixon % (Auto) 7.7 % 05/03/22 05:30 Eos % (Auto) 0.3 % 05/03/22 05:30 Baso % (Auto) 1.1 % 05/03/22 05:30 Neut # (Auto) 6.33 10^3/uL (1.8-7.7) 05/03/22 05:30 Lymph # (Auto) 0.8 10^3/uL (0.8-4.8) 05/03/22 05:30 Dixon # (Auto) 0.6 10^3/uL (0.2-0.9) 05/03/22 05:30 Eos # (Auto) 0.0 10^3/uL (0.0-0.8) 05/03/22 05:30 Baso # (Auto) 0.1 10^3/uL (0.0-0.1) 05/03/22 05:30 Nucleated RBC % (auto) 0 % 05/03/22 05:30 Nucleated RBCs # 0.0 /100WBC 05/03/22 05:30 PT 15.30 SECONDS (12.1-14.9) H 05/03/22 05:30 INR 1.17 (0.8-1.2) 05/03/22 05:30 APTT 29.8 SECONDS (23.9-36.7) 05/03/22 05:30 Sodium 140 mmol/L (136-145) 05/03/22 05:30 Potassium 3.9 mmol/L (3.5-5.1) 05/03/22 05:30 Chloride 100 mmol/L (98-107) 05/03/22 05:30 Carbon Dioxide 19 mmol/L (22-29) L 05/03/22 05:30 Anion Gap 24.9 (5-19) H 05/03/22 05:30 BUN 17 mg/dL (6-20) 05/03/22 05:30 Creatinine 1.1 mg/dL (0.5-0.9) H 05/03/22 05:30 GFR Calculation 51.8 mL/min (90-130) L 05/03/22 05:30 Glucose 216 mg/dL (65-115) H 05/03/22 05:30 Calculated Osmolality 298 mOsm/kg (285-295) H 05/03/22 05:30 Calcium 9.3 mg/dL (8.5-10.5) 05/03/22 05:30 Total Bilirubin 0.6 mg/dL (0.15-1.2) 05/03/22 05:30 AST 86 U/L (0-32) H 05/03/22 05:30 ALT 31 U/L (0-33) 05/03/22 05:30 Alkaline Phosphatase 119 U/L (35-105) H 05/03/22 05:30 Total Protein 8.7 g/dL (6.6-8.7) 05/03/22 05:30 Albumin 4.8 g/dL (3.5-5.2) 05/03/22 05:30 Globulin 3.9 g/dL (1.3-4.6) 05/03/22 05:30 Salicylates < 0.3 mg/dL (3-10) L 05/03/22 05:30 Urine Opiates Screen Negative ng/mL (Negative) 05/03/22 06:09 Acetaminophen < 5.0 ug/mL (10-30) L 05/03/22 05:30 Ur Barbiturates Screen Negative ng/mL (Negative) 05/03/22 06:09 Ur Phencyclidine Scrn Negative ng/mL (Negative) 05/03/22 06:09 Ur Amphetamines Screen Negative ng/mL (Negative) 05/03/22 06:09 U Benzodiazepines Scrn Negative ng/mL (Negative) 05/03/22 06:09 Urine Cocaine Screen Negative ng/mL (Negative) 05/03/22 06:09 U Marijuana (THC) Screen Negative ng/mL (Negative) 05/03/22 06:09 Ethyl Alcohol 18 mg/dL (0-10) H 05/03/22 05:30 EKG Data EKG 1: I personally reviewed and interpreted this EKG as follows: EKG interpretation date: 05/03/22 EKG interpretation time: 05:24 Interpretation: nsr hr [address] or t wave abnormalities qrs 90 qtc 424 Discharge Plan Discharge Patient Disposition: Admitted As Inpatient Admit Provider: Ashu Wall Clinical Impression: Alcohol withdrawal, Accelerated hypertension, COPD (chronic obstructive pulmonary disease), High anion gap metabolic acidosis Condition: Stable Sign Out Sign Out Data: Patient Sign Out occurred on 05/03/22 at 06:09. Patient's care was discussed, and care was transferred from to Mick English DO. Coding Level of Care Code ED Central Office Frame Wirer for Chg Fwd Exam Comprehensive Documented by User: Mick English DO 05/03/22 07:05 HPI - Nausea/Vomiting/Diarrhea General: Chief complaint: Nausea/Vomiting/Diarrhea Stated complaint: htn Time Seen by Provider: 05/03/22 05:14 [facility] PFSH: Medical History (Updated 05/03/22 @ 07:05 by Mick English DO) Depression GERD (gastroesophageal reflux disease) HTN (hypertension) Hypercholesteremia Hypothyroidism (acquired) Kidney stone FREDY (obstructive sleep apnea) Type 2 diabetes mellitus Family History Other Afib CAD (coronary artery disease) Diabetes Hyperlipidemia Hypertension Social History Smoking and tobacco status: never smoked Second hand smoke exposure: Yes Alcohol intake: current Alcohol intake frequency: holidays/special occasions only Lives independently: Yes Household members: spouse Marital status: Current occupational status: employed Current occupational exposures/hazards: No History of recent travel: No Current gender identity: Female Course Vital Signs: Vital signs: Vital Signs Temperature 98.8 F 05/03/22 05:10 Pulse Rate 81 05/03/22 06:30 Respiratory Rate 17 05/03/22 06:30 Blood Pressure 188/157 05/03/22 06:30 Pulse Oximetry 93 05/03/22 06:30 Oxygen Delivery Me thod 05/03/22 06:30 MDM - Nausea/Vomiting/Diarrhea Medical Decision Making 0 630 care assumed at change of shift. Chart reviewed seen and evaluated patient patient states she has not any alcohol for [address] Tucker reported she told him that is been on for a week. Blood alcohol is 18 mg/dL this morning. She does have a metabolic acidosis with an anion gap of 25. Additionally she has significant elevation of her blood pressure with systolic blood pressures as high as [address] Tucker given labetalol I gave her clonidine Ativan and hydralazine. Blood pressures improved slightly. Her nausea has decreased mildly as well. Patient will be admitted to the ICU for alcohol withdrawal and accelerated hypertension. If pressure does not improve she may need to be started on esmolol or nicardipine. 0704 blood pressure improving with medications. Start D5 half-normal saline at 150 an hour for fluid replacement for metabolic acidosis. Medical Records I reviewed the patient's medical records. Lab Data I reviewed the patient's lab results. 05/03/22 05:30 05/03/22 05:30 Laboratory Results WBC 7.9 10^3/uL (4.0-10.0) 05/03/22 05:30 RBC 4.26 10^6/uL (4.1-5.3) 05/03/22 05:30 Hgb 13.5 g/dL (11.5-15.3) 05/03/22 05:30 Hct 41.4 % (37.0-47.0) 05/03/22 05:30 MCV 97.2 fl (81-99) 05/03/22 05:30 MCH 31.7 pg (28.0-34.0) 05/03/22 05:30 MCHC 32.6 g/dL (30.0-36.0) 05/03/22 05:30 RDW 12.5 % (12.1-15.1) 05/03/22 05:30 Plt Count 205 10^3/cmm (130-400) 05/03/22 05:30 MPV 11.0 fL (7.4-10.4) H 05/03/22 05:30 Neut % (Auto) 80.3 % 05/03/22 05:30 Lymph % (Auto) 10.2 % 05/03/22 05:30 Dixon % (Auto) 7.7 % 05/03/22 05:30 Eos % (Auto) 0.3 % 05/03/22 05:30 Baso % (Auto) 1.1 % 05/03/22 05:30 Neut # (Auto) 6.33 10^3/uL (1.8-7.7) 05/03/22 05:30 Lymph # (Auto) 0.8 10^3/uL (0.8-4.8) 05/03/22 05:30 Dixon # (Auto) 0.6 10^3/uL (0.2-0.9) 05/03/22 05:30 Eos # (Auto) 0.0 10^3/uL (0.0-0.8) 05/03/22 05:30 Baso # (Auto) 0.1 10^3/uL (0.0-0.1) 05/03/22 05:30 Nucleated RBC % (auto) 0 % 05/03/22 05:30 Nucleated RBCs # 0.0 /100WBC 05/03/22 05:30 PT 15.30 SECONDS (12.1-14.9) H 05/03/22 05:30 INR 1.17 (0.8-1.2) 05/03/22 05:30 APTT 29.8 SECONDS (23.9-36.7) 05/03/22 05:30 Sodium 140 mmol/L (136-145) 05/03/22 05:30 Potassium 3.9 mmol/L (3.5-5.1) 05/03/22 05:30 Chloride 100 mmol/L (98-107) 05/03/22 05:30 Carbon Dioxide 19 mmol/L (22-29) L 05/03/22 05:30 Anion Gap 24.9 (5-19) H 05/03/22 05:30 BUN 17 mg/dL (6-20) 05/03/22 05:30 Creatinine 1.1 mg/dL (0.5-0.9) H 05/03/22 05:30 GFR Calculation 51.8 mL/min (90-130) L 05/03/22 05:30 Glucose 216 mg/dL (65-115) H 05/03/22 05:30 Calculated Osmolality 298 mOsm/kg (285-295) H 05/03/22 05:30 Calcium 9.3 mg/dL (8.5-10.5) 05/03/22 05:30 Total Bilirubin 0.6 mg/dL (0.15-1.2) 05/03/22 05:30 AST 86 U/L (0-32) H 05/03/22 05:30 ALT 31 U/L (0-33) 05/03/22 05:30 Alkaline Phosphatase 119 U/L (35-105) H 05/03/22 05:30 Total Protein 8.7 g/dL (6.6-8.7) 05/03/22 05:30 Albumin 4.8 g/dL (3.5-5.2) 05/03/22 05:30 Globulin 3.9 g/dL (1.3-4.6) 05/03/22 05:30 Salicylates < 0.3 mg/dL (3-10) L 05/03/22 05:30 Urine Opiates Screen Negative ng/mL (Negative) 05/03/22 06:09 Acetaminophen < 5.0 ug/mL (10-30) L 05/03/22 05:30 Ur Barbiturates Screen Negative ng/mL (Negative) 05/03/22 06:09 Ur Phencyclidine Scrn Negative ng/mL (Negative) 05/03/22 06:09 Ur Amphetamines Screen Negative ng/mL (Negative) 05/03/22 06:09 U Benzodiazepines Scrn Negative ng/mL (Negative) 05/03/22 06:09 Urine Cocaine Screen Negative ng/mL (Negative) 05/03/22 06:09 U Marijuana (THC) Screen Negative ng/mL (Negative) 05/03/22 06:09 Ethyl Alcohol 18 mg/dL (0-10) H 05/03/22 05:30 Discharge Plan Discharge Patient Disposition: Admitted As Inpatient Admit Provider: Ashu Wall Clinical Impression: Alcohol withdrawal, Accelerated hypertension, COPD (chronic obstructive pulmonary disease), High anion gap metabolic acidosis Condition: Stable Sign Out Sign Out Data: Patient Sign Out occurred on 05/03/22 at 06:09. Patient's care was discussed, and care was transferred from to Mick English DO. Coding Level of Care Code ED Central Office Frame Wirer for Shaun Fwguillermina Exam Comprehensive
--- NOTE | 2022-05-03 05:24 | ECG_ITS ---
[facility] Test Date: 2022-05-03 Pat Name: Bharti Lawrence Department: Room: Gender: Female Cardiovascular Surgical Tech: : 1970 Requested By: Pérez Tucker Order Number: [id number] Alexandro MD: Carisa Pérez M.D. Measurements Intervals [place] Rate: 95 P: 54 ND: 146 QRS: 60 QRSD: 90 T: 66 QT: 372 QTc: 468 Interpretive Statements SINUS RHYTHM Compared to ECG 07/14/2019 11:54:43 No significant changes Electronically Signed On 05-03-2022 19:07:49 INSPECTOR FABRIC by Carisa Pérez M.D. [id number]
[2022-05-03] MEDS: labetalol 5 mg/mL SDV 20mL 10 MG IVP (05:52)
[2022-05-03] MEDS: ondansetron 2 mg/ML SDV 2 mL 4 MG IVP (05:52)
[2022-05-03 05:59] LABS: Basophils # 0.1 10^3/uL (0.0-0.1); Basophils % 1.1 %; Eosinophils % 0.3 %; Hematocrit 41.4 % (37.0-47.0); Hemoglobin 13.5 g/dL (11.5-15.3); Lymphocytes # 0.8 10^3/uL (0.8-4.8); Lymphocytes % 10.2 %; Mean Corpuscular HGB Conc 32.6 g/dL (30.0-36.0); Mean Corpuscular Hemoglobin 31.7 pg (28.0-34.0); Mean Corpuscular Volume 97.2 fl (81-99); Monocytes # 0.6 10^3/uL (0.2-0.9); Monocytes % 7.7 %; Neutrophils # 6.33 10^3/uL (1.8-7.7); Neutrophils % 80.3 %; Nucleated Red Blood Cells % 0 %; Platelet Count 205 10^3/cmm (130-400); Red Blood Count 4.26 10^6/uL (4.1-5.3); Red Cell Distribution Width 12.5 % (12.1-15.1); White Blood Count 7.9 10^3/uL (4.0-10.0)
[2022-05-03] MEDS: chlordiazePOXIDE 25 mg Capsule 50 MG PO (06:00)
[2022-05-03] MEDS: multivitamin therapeutic Tablet 1 TAB PO ×2 (06:00→08:50)
[2022-05-03] MEDS: sodium chloride 0.9% 1,000 ML 999 ML IV (06:01)
[2022-05-03 06:16] LABS: Alanine Aminotransferase 31 U/L (0-33); Albumin Level 4.8 g/dL (3.5-5.2); Alcohol Level 18 mg/dL (0-10); Alkaline Phosphatase 119 U/L (35-105); Anion Gap 24.9 (5-19); Aspartate Amino Transferase 86 U/L (0-32); Blood Urea Nitrogen 17 mg/dL (6-20); Calcium 9.3 mg/dL (8.5-10.5); Carbon Dioxide 19 mmol/L (22-29); Chloride 100 mmol/L (98-107); Globulin 3.9 g/dL (1.3-4.6); Glomerular Filtration Rate 51.8 mL/min (90-130); Glucose 216 mg/dL (65-115); Osmolality Calculated 298 mOsm/kg (285-295); Potassium 3.9 mmol/L (3.5-5.1); Sodium 140 mmol/L (136-145); Total Bilirubin 0.6 mg/dL (0.15-1.2); Total Protein 8.7 g/dL (6.6-8.7)
[2022-05-03 06:18] LABS: Acetaminophen < 5.0 ug/mL (10-30); Salicylate < 0.3 mg/dL (3-10)
[2022-05-03] MEDS: LORazepam 2 mg/mL INJ 1 mL IVP (06:22)
[2022-05-03] MEDS: cloNIDine 0.1 mg Tablet PO (06:23)
[2022-05-03] MEDS: hyDRALAzine 20 mg/mL INJ 1 mL IVP ×3 (06:24→15:42)
[2022-05-03 06:57] LABS: INR 1.17 (0.8-1.2)
[2022-05-03 06:58] LABS: Partial Thromboplastin Time 29.8 SECONDS (23.9-36.7)
[2022-05-03 06:58] LABS: Amphetamines Screen Urine Negative (Negative); Barbiturates Screen Urine Negative (Negative); Benzodiazepines Screen Urine Negative (Negative); Cocaine Screen Urine Negative (Negative); Opiate Screen Urine Negative (Negative); PCP Screen Urine Negative (Negative); THC Screen Urine Negative (Negative)
[2022-05-03 07:08] LABS: Add Urine Microscopic? YES; Bilirubin Urine Neg (Negative); Blood Urine 2+ (Negative); Glucose Urine UA 1+ (Normal); Ketones Urine 1+ (Negative); Leukocyte Esterase Urine Negative (Negative); Nitrate Urine Negative (Negative); Protein Urine 3+ (Negative); RBC Urine 0-4 /hpf (0-2); Specific Gravity, Urine 1.025 (1.005-1.030); Urine Appearance Cloudy (CLEAR); Urine Color Yellow (Yellow); Urobilinogen Urine Norm (Negative); pH Urine 5 (5-7)
[2022-05-03 07:09] LABS: Add Urine Culture? No; Bacteria Urine 2+ /hpf; Hyaline Casts Urine RARE /lpf; Mucus Urine TRACE /hpf; Squamous Epithelial Cell Urine 15-25 /hpf (0-5)
[2022-05-03] MEDS: D5-NS 0.45% + KCL 20 mEq 20 MEQ/1,000 ML BAG 150 MEQ IV (08:00)
[2022-05-03] MEDS: folic acid 1 mg Tablet PO (08:50)
[2022-05-03] MEDS: thiamine 100 mg Tablet PO (08:50)
--- NOTE | 2022-05-03 10:17 | USCV_ITS ---
Bharti Lawrence Age: 52 Gender: F : 1970 Exam Date: 05/03/2022 10:56 Ordering Phys: Daren Figueroa MD Technologist: UZAIR Exam Location: [facility] – [place] Indication: htn urgency BP: 207 / 100 HR: 103 Rhythm: Sinus Technical Quality: Adequate MEASUREMENTS (Male / Female) Normal Values 2D ECHO LV Diastolic Diameter PLAX 4.6 cm 4.2 - 5.9 / 3.9 - 5.3 cm LV Systolic Diameter PLAX 2.9 cm IVS Diastolic Thickness 0.8 cm 0.6 - 1.0 / 0.6 - 0.9 cm IVS Systolic Thickness 1.4 cm LVPW Diastolic Thickness 0.9 cm 0.6 - 1.0 / 0.6 - 0.9 cm LVPW Systolic Thickness 1.2 cm LVOT Diameter 2.1 cm LV Ejection Fraction 2D Teich 65.6 % LV Ejection Fraction MOD 2C 61.9 % LV Ejection Fraction 2C AL 64.2 % LA Diameter 3.7 cm M-MODE Aortic Annulus Diameter 3.0 cm LA Ao Ratio MM 1.5 MV E Point Septal Separation 2.4 cm DOPPLER AV Peak Velocity 199.0 cm/s LVOT Peak Velocity 168.0 cm/s AV Area Cont Eq vti 2.7 cm squared AV Area Cont Eq pk 2.8 cm squared MV Area PHT 4.4 cm squared Mitral E to A Ratio 0.8 MV E' Velocity 55.5 cm/s Mitral E to MV E' Ratio 14.8 Mitral E to LV E' Lateral Ratio 15.2 Mitral E to LV E' Septal Ratio 14.6 TR Peak Velocity 282.3 cm/s TR Peak Gradient 31.9 mmHg TV Peak E Velocity 64.0 cm/s Right Atrial Pressure 6.0 mmHg Pulmonary Artery Systolic Pressu 37.9 mmHg PV Peak Velocity 147.0 cm/s FINDINGS Left Ventricle Normal left ventricular size and systolic function, EF 64 %. No regional wall motion abnormalities. Grade I/IV diastolic dysfunction (abnormal relaxation filling pattern), normal to mildly elevated filling pressures. Right Ventricle The right ventricle is normal in size and function. Right Atrium The right atrium is normal in size. Left Atrium The left atrium is normal in size. Mitral Valve Thickened mitral valve. Moderate mitral annular calcification. Aortic Valve No gross abnormalities noted Tricuspid Valve No gross abnormalities noted Pulmonic Valve Structurally normal pulmonic valve. Pericardium No pericardial effusion. Aorta Normal ascending aorta dimension. IVC The inferior vena cava appears normal. CONCLUSIONS I/IV diastolic dysfunction (abnormal relaxation filling pattern), normal to mildly elevated filling pressures. Thickened mitral valve. Moderate mitral annular calcification. There is no pericardial effusion. There are no intracardiac masses. Compared to the study from mm , no significant change Dr Amanda Pa MD [facility] (Electronically Signed) Final Date: 03 May 2022 15:03 S
--- NOTE | 2022-05-03 10:25 | PC.CHAP ---
Pastoral Care Encounter/Spiritual Assessment Type of Contact [] Declined centerless grinder tender visit [] Patient/Family/Request visit [] Outpatient visit [] Follow-up visit [] Physician referral [] Code/Alert [x] Routine visit [] Staff referral [] Actively dying [] Patient sleeping [] Family support [] [] Out of room [] Palliative care [] [] Receiving care in room [] Pre-surgical visit [] Trauma [] Long length of stay [] ICU visit [] Other: Relational/Emotional Strength [x] Patient feels connected with others/family/visitors/staff [] Distress [] Loneliness/isolation [] Abandonment Spirituality of Patient []x Person of Alea [x] Attends Amish of their Alea [x] Believes in Prayer [] Reads Bible or Rastafari materials [] There are Spiritual issues to be addressed New Car Get Ready Mechanic Interventions [x] Prayer [] Active listening [] Non-anxious presence [] Spiritual/emotional support [] Crisis/trauma care [] Spiritual counseling [] Bereavement support [] Provided bereavement packet [] Provided Bible/devotional materials [] Provided toy/stuffed animal, coloring book to patient or family member [] Provided Communion [] Anointing/[place] [] Salvation [x] Completed spiritual assessment [] Other: Impact on Illness or Injury [] Angry [] Fearful [] Anxious [] Often cries [] Exhaustion [] Unable to work [] Unable to attend rastafarian [] Unable to walk/stand [] Unable to read [] Unable to drive [] Unable to eat/drink [] Unable to sleep [] Unable to be with family [] Patient intubated [] Other: Summary patient needs help with alcoholism and needs support Time spent with patient 10 min
--- NOTE | 2022-05-03 10:35 | CT_ITS ---
WS: [id number] CT HEAD TECHNIQUE: Noncontrast CT of the head obtained from the skullbase to the vertex. CLINICAL INFORMATION: ams COMPARISON: MRI 2018 DLP: 804.[address] scans at [facility] use at least one of these dose optimization techniques: automated e xposure control; mA and/or kV adjustment per patient size (includes targeted exams where dose is matc hed to clinical indication); or iterative reconstruction. FINDINGS: No evidence of intracranial hemorrhage or mass effect. Ventricular system and basal cisterns are bah nt. Mild small vessel changes with mild parenchymal volume loss. No extra-axial fluid collections. No evidence of mass or mass effect. Paranasal sinuses and mastoid air cells are well aerated. Mild mucosal thickening ethmoid air cells. Trace secretions in the sphenoid sinus. Mastoid air cells are well aerated. CT/CT head wo con* [id number] IMPRESSION: 1. No evidence of intracranial hemorrhage or mass effect. 2. Mild small vessel changes. Mild parenchymal volume loss. 3. No acute intracranial findings.
[2022-05-03] MEDS: sodium chloride 0.9% 1,000 ML 75 ML IV (10:36)
[2022-05-03] MEDS: LORazepam 2 mg Tablet PO (10:38)
--- NOTE | 2022-05-03 10:40 | ECG_ITS ---
[facility] Test Date: 2022-05-03 Pat Name: Bharti Lawrence Department: Room: [facility] Gender: Female Can Reconditioner: : 1970 Requested By: Daren Figueroa Order Number: [id number] Alexandro MD: Carisa Pérez M.D. Measurements Intervals [place] Rate: 88 P: 43 FL: 143 QRS: 39 QRSD: 89 T: 51 QT: 400 QTc: 485 Interpretive Statements SINUS RHYTHM Compared to ECG 05/03/2022 05:24:22 No significant changes Electronically Signed On 05-03-2022 19:05:14 GENERATION TECHNOLOGIST by Carisa Pérez M.D. [id number]
[2022-05-03 10:45] LABS: Ketone (Acetest) Serum Negative (Negative)
[2022-05-03] MEDS: folic acid 1 MG, multivitamin inj 10 ML, thiamine 100 MG in sodium chloride 0.9% 1,000 ML 252.8 MG IV (10:47)
[2022-05-03] MEDS: dexmedetomidine 400 MCG in sodium chloride 0.9% (100 ml) 100 ML IV (10:48)
[2022-05-03 10:59] LABS: Estmated Average Glucose 169; Hemoglobin A1C 7.5 % (4.0-6.0)
[2022-05-03 11:14] LABS: Charge for UA Resulting for Rev
[2022-05-03 11:14] LABS: Folate Level 18.5 ng/mL (4.8-37.3)
[2022-05-03 11:15] LABS: Procalcitonin 0.13 ng/mL (0-0.5); Vitamin B12 593 pg/mL (232-1245)
[2022-05-03] MEDS: heparin 5,000 unit/mL INJ 1 mL 5000 UNIT SUBCUT ×2 (11:23→22:03)
[2022-05-03] MEDS: losartan 50 mg Tablet 100 MG PO (11:23)
[2022-05-03] MEDS: metoprolol tartrate 25 mg Tablet PO (11:23)
[2022-05-03] MEDS: pantoprazole 40 mg SDV IVP ×2 (11:25→22:01)
[2022-05-03 11:26] LABS: Iron 203 ug/dL (37-145); Percent Saturation 49.2 % (20-50); Total Iron Binding Capacity 412 mcg/dl; Unsaturated Iron Binding 209 ug/dL (112-347)
[2022-05-03 11:28] LABS: Magnesium 1.6 mg/dL (1.7-2.3); Troponin(5th) Baseline 22 ng/L (0-10)
[2022-05-03 11:37] LABS: Potassium, Radom Urine 82 mmol/L; Urine Random Chloride 154 mmol/L; Urine Random Sodium 131 mmol/L
[2022-05-03 11:42] LABS: Lactic Sepsis W/Reflex 2.8 mmol/L (0.5-2.2)
[2022-05-03 12:00] LABS: Bilirubin Urine Neg (Negative); Blood Urine Neg (Negative); Glucose Urine UA 4+ (Normal); Ketones Urine 1+ (Negative); Leukocyte Esterase Urine Negative (Negative); Nitrate Urine Negative (Negative); Protein Urine 1+ (Negative); Specific Gravity, Urine 1.005 (1.005-1.030); Urine Appearance Clear (CLEAR); Urine Color Yellow (Yellow); Urobilinogen Urine Norm (Negative); pH Urine 7 (5-7)
[2022-05-03 12:05] LABS: Add Urine Microscopic? YES
[2022-05-03 12:31] LABS: Glucose Point of Care 243 mg/dL (70-110)
[2022-05-03 12:48] LABS: Reflex Lactate Order REFLEX LACTIC ORDERD
--- NOTE | 2022-05-03 12:54 | ECG_ITS ---
[facility] Test Date: 2022-05-03 Pat Name: Bharti Lawrence Department: Room: [facility] Gender: Female Toolroom Clerk: : 1970 Requested By: Daren Figueroa Order Number: [id number] Alexandro MD: Carisa Pérez M.D. Measurements Intervals [place] Rate: 84 P: 24 ND: 151 QRS: 20 QRSD: 92 T: 43 QT: 413 QTc: 490 Interpretive Statements SINUS RHYTHM Compared to ECG 05/03/2022 10:40:42 No significant changes Electronically Signed On 05-03-2022 20:30:08 CAR BODY INSPECTOR by Carisa Pérez M.D. [id number]
[2022-05-03 13:04] LABS: Influenza A by IFA Negative (Negative); Influenza B by IFA Negative (Negative)
[2022-05-03 13:07] LABS: Troponin 5 2HR 22.19 ng/L (0-10)
[2022-05-03 13:14] LABS: Troponin 5 2HR Delta 0.19 ABS# (0-10)
[2022-05-03] MEDS: ipratropium-albuterol 3 mL Neb INHALATION ×2 (13:37→20:01)
[2022-05-03 15:27] LABS: Anion Gap 14.9 (5-19); Blood Urea Nitrogen 15 mg/dL (6-20); Calcium 9.3 mg/dL (8.5-10.5); Carbon Dioxide 23 mmol/L (22-29); Chloride 100 mmol/L (98-107); Glomerular Filtration Rate 74.7 mL/min (90-130); Glucose 182 mg/dL (65-115); Lactic Acid level (Lactate) 1.7 mmol/L (0.5-2.2); Osmolality Calculated 283 mOsm/kg (285-295); Potassium 3.9 mmol/L (3.5-5.1); Sodium 134 mmol/L (136-145)
--- NOTE | 2022-05-03 16:03 | PM.HP ---
Providers/Chief Complaint Admitting Physician: Ashu Wall MD Primary Care Provider: Ana Maria Flores MD Chief Complaint: htn History of Present Illness History taken through patient spouse at bedside. Bharti Lawrence is a 52 year old female with past medical history of alcohol abuse, alcohol withdrawal, COPD, hypertension, obstructive sleep apnea, type 2 diabetes mellitus who has in the past going through an alcohol rehab center. As per the family patient was started consuming alcohol again and for last 1 week they have been trying to detox her at home. She has been having some tremors along with nausea and vomiting for last 3 days but today morning patient started having worsening tremors and nausea along with delirium so patient was brought to the ER. Patient seen in ICU with family at bedside. Patient is awake but not alert and nausea. Patient's heart rate is running at 120 bpm with blood pressure of 190 systolic Review of Systems General: Reports: ROS unobtainable due to mental status Medications/Allergies Home Medications Medication Instructions Recorded Confirmed Last Taken Type albuterol sulfate 90 mcg/actuation 2 inh inhalation Q4H PRN shortness 07/14/19 05/03/22 Unknown Rx aerosol inhaler of breath or wheezing #18 grams atorvastatin 40 mg tablet 40 mg PO DAILY 11/11/19 05/03/22 Unknown History folic acid 1 mg tablet 1 mg PO DAILY 11/11/19 05/03/22 Unknown History irbesartan 300 mg tablet 300 mg PO DAILY 11/11/19 05/03/22 Unknown History metoprolol tartrate 25 mg tablet 25 mg PO BID 11/11/19 05/03/22 Unknown History olopatadine 0.1 % eye drops 1 drop ophthalmic (eye) BID 11/11/19 05/03/22 Unknown History sertraline 100 mg tablet 100 mg PO DAILY 11/11/19 05/03/22 Unknown History aspirin 325 mg tablet 325 mg PO DAILY 05/03/22 05/03/22 Unknown History ibuprofen 200 mg tablet 600 - 800 mg PO Q6H PRN Pain 05/03/22 05/03/22 Unknown History insulin aspart U-100 100 unit/mL 10 unit SUBCUT BID PRN DIABETES 05/03/22 05/03/22 Unknown History (3 mL) subcutaneous pen (Novolog Flexpen U-100 Insulin aspart) insulin detemir U-100 100 unit/mL 10 unit SUBCUT BID 05/03/22 05/03/22 Unknown History (3 mL) subcutaneous pen (Levemir FlexTouch U-100 Insulin) omeprazole 40 mg capsule,delayed 40 mg PO DAILY 05/03/22 05/03/22 Unknown History release potassium chloride 20 mEq 20 meq PO DAILY 05/03/22 05/03/22 Unknown History tablet,extended release(part/cryst) trazodone 50 mg tablet 50 mg PO BEDTIME PRN Sleep 05/03/22 05/03/22 Unknown History Allergies Allergy/AdvReac Type Severity Reaction Status Date / Time No Known Allergies Allergy Verified 05/03/22 10:44 PFSH Acute PFSH: Medical History (Updated 05/03/22 @ 16:39 by Daren Figueroa MD) Depression GERD (gastroesophageal reflux disease) HTN (hypertension) Hypercholesteremia Hypothyroidism (acquired) Kidney stone FREDY (obstructive sleep apnea) Type 2 diabetes mellitus Family History Other Afib CAD (coronary artery disease) Diabetes Hyperlipidemia Hypertension Social History Smoking and tobacco status: never smoked Second hand smoke exposure: Yes Alcohol intake: current Alcohol intake frequency: holidays/special occasions only Lives independently: Yes Household members: spouse Marital status: Current occupational status: employed Current occupational exposures/hazards: No History of recent travel: No Current gender identity: Female Vitals/I&O/Wt Last Vital Signs Temp 98.3 F 05/03/22 12:30 Pulse 83 05/03/22 14:00 Resp 16 05/03/22 13:35 BP 175/94 05/03/22 12:30 Pulse Ox 95 05/03/22 13:35 O2 Del Method 05/03/22 13:35 O2 Flow Rate 2 05/03/22 13:35 05/03/22 05/03/22 05/03/22 06:59 14:59 22:59 Intake Total 1300 / 1300 1011.2 / 2311.2 Balance 1300 / 1300 1011.2 / 2311.2 Weight last 48 hrs Weight 84.822 kg Weight 81.647 kg Physical Exam Narrative: EXAM NARRATIVE: General: No acute distress, AO x3, NC oxygen supplementation HEENT: PERRLA, pupils bilaterally equal and reactive Chest:Bronchial breath sounds b/l ,decreased air entry, equal good air entry bilaterally, no more fine basal crackles CVS: S1-S2 regular, no murmurs, no tachycardia, no gallops, no rubs Abdomen: Soft, nontender, no organomegaly, bowel sounds present, morbidly obese Neuro: No focal deficits, no facial deformity, AO x3, power 5/5 in all limbs Urinary Catheter Management: Fernandes: Cath Placed During This Visit: yes Urinary Catheter Date of Insertion: 05/03/22 Urinary Catheter Time of Insertion: 10:00 Data 05/03/22 05:30 05/03/22 14:25 Micro: Microbiology 05/03/22 06:09 Bacterial Antigens - Final Urine Kidney 05/03/22 11:10 Legionella Urinary Antigen - Final Urine Catheterized 05/03/22 10:55 Blood Culture - Preliminary Blood SPECIMEN COLLECTED 05/03/22 10:48 Blood Culture - Preliminary Blood SPECIMEN COLLECTED A&P Assessment and plan (1) Alcohol withdrawal: CIWA protocol Ativan as needed. Banana bag. Oral thiamine and folic acid repletion. Check vitamin B12, folate level, TSH Start on Precedex drip. NPO. Normal saline at 75 cc/h. Librium 25 mg every 6 hourly. (2) Accelerated hypertension: Most likely secondary to inability to take oral medications because of nausea. Restart on home dose of losartan. Increase metoprolol to 50 mg twice daily. Goal blood pressure less than 140/90 mmHg. Will uptitrate as per goals. Check CT head without contrast to rule out intracranial hemorrhage. Troponin cycle to rule out ACS. Check echocardiogram. Check urine drug screen, A1c, lipid panel. (3) High anion gap metabolic acidosis: Most likely secondary to starvation ketosis in view of vomiting and alcohol abuse. Cannot rule out DKA or lactic acidosis. No concerns for infection for now so we will hold off on antibiotics. Repeat BMP. Fluid as above. Check blood culture, urinalysis, urine lites. Continue to monitor every 12 hourly for now. If anion gap persists will start on insulin drip. (4) Obstructive sleep apnea: Check flu swab, chest x-ray. CPAP nightly (5) COPD (chronic obstructive pulmonary disease): Oxygen supplementation keeping saturation over 90%. No acute exacerbation so we will hold off on steroids. DuoNebs as needed. (6) Type 2 diabetes mellitus: Check A1c. Insulin sliding scale low-dose protocol every 6 hourly as patient is NPO. DKA less likely currently. Plan NPO. Protonix for PUD prophylaxis Heparin for DVT prophylaxis Attestations Medical Necessity Statement*: Admission for more than 2 midnights for management of accelerated hypertension, alcohol withdrawal Critical Care Time: The high probability of a clinically significant, sudden or life threatening deterioration of the patient's [cardiac, renal, neurological] system(s) required my full and direct attention, intervention and personal management. The critical care time is as shown. This time is in addition to time spent performing any reported procedures but includes the following: [x] Data and vital sign review and interpretation [x] Patient assessment, examination and intervention [x] Documentation [x] Medication orders and management Critical Care Time (min): 70 Coding Level of Care Code Acute Integration Project Manager for Chg Fwd Diagnoses Alcohol withdrawal F10.939 Accelerated hypertension I10 High anion gap metabolic acidosis E87.29 Obstructive sleep apnea G47.33 COPD (chronic obstructive pulmonary disease) J44.9 Type 2 diabetes mellitus E11.9
--- NOTE | 2022-05-03 16:35 | ECG_ITS ---
[facility] Test Date: 2022-05-03 Pat Name: Bharti Lawrence Department: Room: [facility] Gender: Female Geochemist: : 1970 Requested By: Daren Figueroa Order Number: [id number] Alexandro MD: Carisa Pérez M.D. Measurements Intervals [place]on Rate: 89 P: 32 NV: 124 QRS: 44 QRSD: 90 T: 62 QT: 407 QTc: 497 Interpretive Statements SINUS RHYTHM POSSIBLE LEFT ATRIAL ENLARGEMENT [-0.1mV P-WAVE IN V1/V2] Compared to ECG 05/03/2022 12:54:42 No significant changes Electronically Signed On 05-03-2022 20:29:34 CAUSTIC STRENGTH INSPECTOR by Carisa Pérez M.D. [id number]
[2022-05-03 17:07] LABS: Glucose Point of Care 151 mg/dL (70-110)
[2022-05-03] MEDS: insulin lispro 100 unit/1 mL SUBCUT ×2 (17:11→22:24)
[2022-05-03] MEDS: amlodipine 10 mg Tablet PO (17:11)
[2022-05-03] MEDS: chlordiazePOXIDE 25 mg Capsule PO ×2 (17:11→22:00)
[2022-05-03 17:23] LABS: Troponin 5 6HR 23.06 ng/L (0-10)
[2022-05-03] MEDS: metoprolol tartrate 50 mg Tablet PO (17:40)
[2022-05-03 17:42] LABS: Troponin 5 6HR Delta 1.06 ng/L (0-12)
[2022-05-03] MEDS: acetaminophen 325 mg Tablet 650 MG PO (22:09)
[2022-05-03 22:25] LABS: Glucose Point of Care 162 mg/dL (70-110)
[2022-05-04] VITALS (31 sets, daily range): BP systolic 133–187; BP diastolic 72–111; PULSE 68–95; RESP 13–29; TEMP 36.7–36.9; O2SAT 88–96
[2022-05-04] MEDS: hyDRALAzine 20 mg/mL INJ 1 mL IVP (00:05)
[2022-05-04] MEDS: sodium chloride 0.9% 1,000 ML 75 ML IV (00:05)
[2022-05-04] MEDS: ondansetron 2 mg/ML SDV 2 mL 4 MG IVP ×2 (01:07→12:15)
[2022-05-04] MEDS: ipratropium-albuterol 3 mL Neb INHALATION ×4 (02:29→20:48)
[2022-05-04] MEDS: TRAMadol 50 mg Tablet PO ×2 (03:41→08:09)
[2022-05-04] MEDS: chlordiazePOXIDE 25 mg Capsule PO ×4 (03:42→22:12)
[2022-05-04 03:49] LABS: Glucose Point of Care 136 mg/dL (70-110)
[2022-05-04 04:52] LABS: Basophils % 0.8 %; Eosinophils % 0.6 %; Hematocrit 36.4 % (37.0-47.0); Hemoglobin 11.5 g/dL (11.5-15.3); Lymphocytes # 0.8 10^3/uL (0.8-4.8); Lymphocytes % 15.9 %; Mean Corpuscular HGB Conc 31.6 g/dL (30.0-36.0); Mean Corpuscular Hemoglobin 31.4 pg (28.0-34.0); Mean Corpuscular Volume 99.5 fl (81-99); Mean Platelet Volume 11.4 fL (7.4-10.4); Monocytes # 0.5 10^3/uL (0.2-0.9); Monocytes % 9.2 %; Neutrophils # 3.73 10^3/uL (1.8-7.7); Neutrophils % 73.1 %; Nucleated Red Blood Cells % 0 %; Platelet Count 123 10^3/cmm (130-400); Red Blood Count 3.66 10^6/uL (4.1-5.3); Red Cell Distribution Width 12.6 % (12.1-15.1); White Blood Count 5.1 10^3/uL (4.0-10.0)
[2022-05-04 05:18] LABS: Chol HDL Ratio 3.04 mg/dL (0.0-4.40); Cholesterol 225 mg/dL (0-200); HDL Cholesterol 74 mg/dL (60-100); LDL Cholesterol Calculated 106 mg/dL (50-129); Magnesium 1.7 mg/dL (1.7-2.3); Triglycerides 223 mg/dL (0-150); VLDL Cholestrol Calculation 45 mg/dL (0-30)
[2022-05-04 05:20] LABS: Alanine Aminotransferase 23 U/L (0-33); Albumin Level 4.2 g/dL (3.5-5.2); Alkaline Phosphatase 99 U/L (35-105); Anion Gap 15.4 (5-19); Aspartate Amino Transferase 52 U/L (0-32); Blood Urea Nitrogen 11 mg/dL (6-20); Carbon Dioxide 23 mmol/L (22-29); Chloride 101 mmol/L (98-107); Globulin 3.2 g/dL (1.3-4.6); Glomerular Filtration Rate 74.7 mL/min (90-130); Glucose 152 mg/dL (65-115); Osmolality Calculated 284 mOsm/kg (285-295); Potassium 3.4 mmol/L (3.5-5.1); Sodium 136 mmol/L (136-145); Total Bilirubin 0.8 mg/dL (0.15-1.2); Total Protein 7.4 g/dL (6.6-8.7)
[2022-05-04] MEDS: amlodipine 10 mg Tablet PO (07:57)
[2022-05-04] MEDS: metoprolol tartrate 50 mg Tablet PO (07:57)
[2022-05-04] MEDS: losartan 50 mg Tablet 100 MG PO (07:57)
[2022-05-04] MEDS: multivitamin therapeutic Tablet 1 TAB PO (08:10)
[2022-05-04] MEDS: sertraline 100 mg Tablet PO (08:10)
[2022-05-04] MEDS: thiamine 100 mg Tablet PO (08:10)
[2022-05-04] MEDS: atorvastatin 40 mg Tablet PO (08:10)
[2022-05-04] MEDS: folic acid 1 mg Tablet PO (08:10)
[2022-05-04] MEDS: pantoprazole 40 mg SDV IVP ×2 (10:08→22:12)
[2022-05-04] MEDS: heparin 5,000 unit/mL INJ 1 mL 5000 UNIT SUBCUT ×2 (10:08→22:34)
[2022-05-04 11:21] LABS: Glucose Point of Care 190 mg/dL (70-110)
[2022-05-04] MEDS: insulin lispro 100 unit/1 mL SUBCUT ×3 (12:15→20:39)
[2022-05-04] MEDS: hyDRALAzine 25 mg Tablet PO ×3 (12:15→20:11)
--- NOTE | 2022-05-04 15:41 | P.PN_ITS ---
Subjective Subjective: No acute events overnight. Today morning examination patient is a lot more awake and alert. Able to have complete conversation without losing. Still mumbling in between. Less tremulous and diaphoretic. Blood pressure is better but still elevated. States he is feeling a lot better. Complaining of mild headache. Family at bedside. Family requesting patient to be transferred to SNF or alcohol rehab. Patient states after this severe withdrawal she is never can drink again and does not want to go to SNF or acute rehab or alcohol rehab. Is agreeable for physical therapy. Vitals/I&O/Wt Last Vital Signs Temp 98.5 F 05/04/22 12:00 Pulse 90 05/04/22 14:00 Resp 16 05/04/22 13:40 BP 186/96 05/04/22 12:00 Pulse Ox 93 05/04/22 13:40 O2 Del Method 05/04/22 13:40 O2 Flow Rate 2 05/04/22 09:00 05/04/22 05/04/22 05/04/22 06:59 14:59 22:59 Intake Total 1000 / 3341.2 1144.553 / 1144.553 Output Total 1000 / 1000 Balance 1000 / 1541.2 144.553 / 144.553 Weight last 48 hrs Weight 84.822 kg Weight 81.647 kg Physical Exam Narrative: EXAM NARRATIVE: General: No acute distress, AO x3, NC oxygen supplementation HEENT: PERRLA, pupils bilaterally equal and reactive Chest:Bronchial breath sounds b/l ,decreased air entry, equal good air entry bilaterally, no more fine basal crackles CVS: S1-S2 regular, no murmurs, no tachycardia, no gallops, no rubs Abdomen: Soft, nontender, no organomegaly, bowel sounds present, morbidly obese Neuro: No focal deficits, no facial deformity, AO x3, power 5/5 in all limbs Urinary Catheter Management: Fernandes: Cath Placed During This Visit: yes Reason for Continuing Indwelling Catheter: Accurate Measurement of Urinary Output in Critically Ill Patients Urinary Catheter Date of Insertion: 05/03/22 Urinary Catheter Time of Insertion: 10:00 Data 05/04/22 04:02 05/04/22 04:02 Micro: Microbiology 05/03/22 10:55 Blood Culture - Preliminary Blood NEGATIVE TO DATE 05/03/22 10:48 Blood Culture - Preliminary Blood NEGATIVE TO DATE 05/03/22 06:09 Bacterial Antigens - Final Urine Kidney 05/03/22 11:10 Legionella Urinary Antigen - Final Urine Catheterized A&P Assessment and plan (1) Alcohol withdrawal: CIWA protocol Ativan as needed. Librium 25 mg every 6 hourly. We will plan to start weaning within next 24 hours depending on alcohol withdrawal symptoms Wean off Precedex drip. Start on carb consistent diet. Oral folate and thiamine. (2) Accelerated hypertension: Blood pressure still elevated. Goal blood pressure less than 140/90 mmHg. Continue with losartan 100 mg daily, amlodipine 10 mg daily. Switch metoprolol to Coreg 12.5 mg twice daily. Add hydralazine 25 mg 4 times daily. Will uptitrate medications accordingly. Appreciate echocardiogram results. (3) High anion gap metabolic acidosis: Most likely secondary to starvation ketosis in view of vomiting and alcohol abuse. Cannot rule out DKA or lactic acidosis. No concerns for infection for now so we will hold off on antibiotics. Repeat BMP. Fluid as above. Check blood culture, urinalysis, urine lites. Continue to monitor every 12 hourly for now. If anion gap persists will start on insulin drip. (4) Obstructive sleep apnea: Negative. Home O2 evaluation prior to discharge. CPAP nightly (5) COPD (chronic obstructive pulmonary disease): Oxygen supplementation keeping saturation over 90%. No acute exacerbation so we will hold off on steroids. DuoNebs as needed. (6) Type 2 diabetes mellitus: A1c 7.5. Insulin sliding scale low-dose protocol Carb consistent diet. Plan Carb consistent diet. Protonix for PUD prophylaxis Heparin for DVT prophylaxis Physical therapy evaluation Discharge planning: Plan to discharge home with home health versus SNF as per physical therapy evaluation once medically stable. Patient does not want to go to alcohol rehab on discharge Attestations Medical Necessity Statement*: Requires further hospitalization for management of alcohol withdrawal, accelerated hypertension Time Spent in Patient Care: Greater than 35 minutes Coding Level of Care Code Acute Clinical Informatics Physician for Shaun Vu Diagnoses Alcohol withdrawal F10.939 Accelerated hypertension I10 High anion gap metabolic acidosis E87.29 Obstructive sleep apnea G47.33 COPD (chronic obstructive pulmonary disease) J44.9 Type 2 diabetes mellitus E11.9
[2022-05-04 16:30] LABS: Free T4 Free Thyroxine 1.11 ng/dL (0.82-1.77); T3 Free 3.4 PG/ML (2.0-4.4)
[2022-05-04 17:38] LABS: Glucose Point of Care 192 mg/dL (70-110)
[2022-05-04] MEDS: carvedilol 12.5 mg Tablet PO (17:50)
[2022-05-04] MEDS: acetaminophen 325 mg Tablet 650 MG PO (18:28)
[2022-05-04 20:47] LABS: Glucose Point of Care 217 mg/dL (70-110)
[2022-05-04] MEDS: trazodone 50 mg Tablet PO (21:00)
--- NOTE | 2022-05-04 21:00 | PC.NURSE ---
Trazodone Patient states that she did not sleep well last night, is having a hard time resting this evening, and would like her home dose of trazodone to help her sleep. Dr. Wall contacted and order received to start her home dose of trazodone 50 mg PO at bedtime PRN. See MAR for administration.
--- NOTE | 2022-05-04 22:30 | PC.NURSE ---
Heparin dose Patient's platelet count 123 at last draw; 5000 units of heparin SUBQ due at 2245. Dr. Wall contacted for verification of administration. Order received to continue with dose. See MAR for details.
[2022-05-05] VITALS (36 sets, daily range): BP systolic 96–181; BP diastolic 58–111; PULSE 69–117; RESP 12–26; TEMP 36.6–37.4; O2SAT 89–95; BMI 32.1
[2022-05-05] MEDS: hyDRALAzine 20 mg/mL INJ 1 mL IVP (00:33)
[2022-05-05] MEDS: TRAMadol 50 mg Tablet PO ×2 (03:26→13:20)
[2022-05-05 04:38] LABS: Alanine Aminotransferase 27 U/L (0-33); Albumin Level 4.2 g/dL (3.5-5.2); Alkaline Phosphatase 108 U/L (35-105); Blood Urea Nitrogen 10 mg/dL (6-20); Calcium 9.4 mg/dL (8.5-10.5); Carbon Dioxide 21 mmol/L (22-29); Globulin 3.7 g/dL (1.3-4.6); Glomerular Filtration Rate 74.7 mL/min (90-130); Glucose 168 mg/dL (65-115); Total Protein 7.9 g/dL (6.6-8.7)
[2022-05-05] MEDS: chlordiazePOXIDE 25 mg Capsule PO ×4 (05:21→21:18)
[2022-05-05] MEDS: acetaminophen 325 mg Tablet 650 MG PO ×2 (05:43→16:09)
[2022-05-05 06:36] LABS: Chloride 97 mmol/L (98-107); Osmolality Calculated 277 mOsm/kg (285-295); Sodium 132 mmol/L (136-145)
[2022-05-05 06:37] LABS: Anion Gap 17.8 (5-19); Potassium 3.8 mmol/L (3.5-5.1)
[2022-05-05 06:38] LABS: Aspartate Amino Transferase 79 U/L (0-32)
[2022-05-05 07:34] LABS: Glucose Point of Care 259 mg/dL (70-110)
[2022-05-05] MEDS: albuterol 2.5 mg/3 mL Neb INHALATION ×3 (07:53→22:14)
[2022-05-05] MEDS: ipratropium 0.5 mg/2.5 mL Neb INHALATION ×2 (07:53→13:39)
[2022-05-05] MEDS: atorvastatin 40 mg Tablet 80 MG PO (08:19)
[2022-05-05] MEDS: multivitamin therapeutic Tablet 1 TAB PO (08:19)
[2022-05-05] MEDS: hyDRALAzine 25 mg Tablet PO ×4 (08:19→21:18)
[2022-05-05] MEDS: amlodipine 10 mg Tablet PO (08:19)
[2022-05-05] MEDS: losartan 50 mg Tablet 100 MG PO (08:19)
[2022-05-05] MEDS: sertraline 100 mg Tablet PO (08:19)
[2022-05-05] MEDS: thiamine 100 mg Tablet PO (08:19)
[2022-05-05] MEDS: folic acid 1 mg Tablet PO (08:19)
[2022-05-05] MEDS: ondansetron 2 mg/ML SDV 2 mL 4 MG IVP (08:19)
[2022-05-05] MEDS: carvedilol 12.5 mg Tablet PO ×2 (08:19→17:22)
[2022-05-05] MEDS: insulin lispro 100 unit/1 mL SUBCUT ×4 (08:20→21:18)
[2022-05-05] MEDS: heparin 5,000 unit/mL INJ 1 mL 5000 UNIT SUBCUT ×2 (11:11→22:11)
[2022-05-05] MEDS: pantoprazole 40 mg SDV IVP ×2 (11:11→22:11)
--- NOTE | 2022-05-05 13:32 | P.PN_ITS ---
Subjective Subjective: No acute events overnight. Today morning seen sitting in chair. A lot more awake and alert. Denies any nausea, vomiting, headache. Asking for Fernandes to be removed. Vitals/I&O/Wt Last Vital Signs Temp 99.3 F 05/05/22 07:00 Pulse 89 05/05/22 12:30 Resp 15 05/05/22 12:30 BP 134/77 05/05/22 12:30 Pulse Ox 91 05/05/22 12:30 O2 Del Method 05/05/22 12:30 O2 Flow Rate 2 05/05/22 08:30 05/04/22 05/05/22 05/05/22 22:59 06:59 14:59 Intake Total 240 / 1384.553 480 / 1864.553 600 / 600 Output Total 800 / 1800 850 / 2650 Balance -560 / -415.447 -370 / -785.447 600 / 600 Weight last 48 hrs Weight 84.822 kg Physical Exam Narrative: General: No acute distress, AO x3, on room air, not jittery, CIWA?3 HEENT: PERRLA, pupils bilaterally equal and reactive Chest:Bronchial breath sounds b/l ,decreased air entry, equal good air entry bilaterally, no more fine basal crackles CVS: S1-S2 regular, no murmurs, no tachycardia, no gallops, no rubs Abdomen: Soft, nontender, no organomegaly, bowel sounds present, morbidly obese Neuro: No focal deficits, no facial deformity, AO x3, power 5/5 in all limbs Urinary Catheter Management: Fernandes: Cath Placed During This Visit: yes Reason for Continuing Indwelling Catheter: Accurate Measurement of Urinary Output in Critically Ill Patients Urinary Catheter Date of Insertion: 05/03/22 Urinary Catheter Time of Insertion: 10:00 Data 05/04/22 04:02 05/05/22 03:49 Micro: Microbiology 05/03/22 10:55 Blood Culture - Preliminary Blood NEGATIVE TO DATE 05/03/22 10:48 Blood Culture - Preliminary Blood NEGATIVE TO DATE A&P Assessment and plan (1) Alcohol withdrawal: CIWA protocol Ativan as needed. Wean down Librium to 25 mg every 8 hourly. Off Precedex drip. Continue with carb consistent diet Oral folate and thiamine. (2) Accelerated hypertension: Blood pressure better controlled. Still elevated. Goal blood pressure less than 140/90 mmHg. Continue with losartan 100 mg daily, amlodipine 10 mg daily, Coreg 12.5 mg twice daily along with hydralazine 25 mg 4 times a day. Appreciate echocardiogram results. (3) High anion gap metabolic acidosis: Resolved. Most likely secondary to starvation ketosis in view of vomiting and alcohol abuse. No concerns for infection for now so we will hold off on antibiotics. (4) Obstructive sleep apnea: Home O2 evaluation prior to discharge. CPAP nightly (5) COPD (chronic obstructive pulmonary disease): Oxygen supplementation keeping saturation over 90%. No acute exacerbation so we will hold off on steroids. DuoNebs as needed. (6) Type 2 diabetes mellitus: A1c 7.5. Insulin sliding scale low-dose protocol Carb consistent diet. Plan Carb consistent diet. Protonix for PUD prophylaxis Heparin for DVT prophylaxis Physical therapy evaluation Discharge planning: Plan to discharge home once medically stable within next 24 to 48 hours. Transfer to [facility]. Attestations Medical Necessity Statement*: Requires further hospitalization for management of alcohol withdrawal, hypertensive urgency Time Spent in Patient Care: Greater than 35 minutes Coding Level of Care Code Acute Artillery Meteorological Man for [facility] Fwd Diagnoses Alcohol withdrawal F10.939 Accelerated hypertension I10 High anion gap metabolic acidosis E87.29 Obstructive sleep apnea G47.33 COPD (chronic obstructive pulmonary disease) J44.9 Type 2 diabetes mellitus E11.9
[2022-05-05 15:12] LABS: Glucose Point of Care 180 mg/dL (70-110)
--- NOTE | 2022-05-05 15:48 | PC.NURSE ---
Report called to MARK Jackson. Patient and belongings taken to room 258. Family at bedside.
[2022-05-05 16:49] LABS: Glucose Point of Care 307 mg/dL (70-110)
[2022-05-05 20:41] LABS: Glucose Point of Care 209 mg/dL (70-110)
[2022-05-05] MEDS: trazodone 50 mg Tablet PO (21:18)
[2022-05-06] VITALS (10 sets, daily range): BP systolic 123–163; BP diastolic 76–88; PULSE 77–93; RESP 15–21; TEMP 36.4–36.8; O2SAT 90–97
[2022-05-06 06:24] LABS: Glucose Point of Care 228 mg/dL (70-110)
[2022-05-06 08:13] LABS: Glucose Point of Care 259 mg/dL (70-110)
[2022-05-06] MEDS: insulin lispro 100 unit/1 mL SUBCUT ×2 (08:17→11:14)
[2022-05-06] MEDS: carvedilol 12.5 mg Tablet PO (08:18)
[2022-05-06] MEDS: amlodipine 10 mg Tablet PO (08:18)
[2022-05-06] MEDS: atorvastatin 40 mg Tablet 80 MG PO (08:18)
[2022-05-06] MEDS: sertraline 100 mg Tablet PO (08:18)
[2022-05-06] MEDS: multivitamin therapeutic Tablet 1 TAB PO (08:18)
[2022-05-06] MEDS: folic acid 1 mg Tablet PO (08:19)
[2022-05-06] MEDS: hyDRALAzine 25 mg Tablet PO ×2 (08:20→12:31)
[2022-05-06] MEDS: chlordiazePOXIDE 25 mg Capsule PO ×2 (08:20→14:19)
[2022-05-06] MEDS: thiamine 100 mg Tablet PO (08:21)
[2022-05-06] MEDS: losartan 50 mg Tablet 100 MG PO (08:21)
[2022-05-06] MEDS: albuterol 2.5 mg/3 mL Neb INHALATION ×2 (08:48→13:34)
[2022-05-06 11:11] LABS: Glucose Point of Care 244 mg/dL (70-110)
[2022-05-06] MEDS: TRAMadol 50 mg Tablet PO (11:13)
[2022-05-06] MEDS: pantoprazole 40 mg SDV IVP (11:14)
[2022-05-06] MEDS: heparin 5,000 unit/mL INJ 1 mL 5000 UNIT SUBCUT (11:15)
--- NOTE | 2022-05-06 11:48 | PC.SOCIAL ---
IMM Update pg 2 of IMM updated and reviewed w/ patient. Copy provided and Copy dated, initialed and placed in chart.
--- NOTE | 2022-05-06 13:04 | PM.DCS ---
Discharge Providers Date of Admission: 05/03/22 06:41 Date of Discharge: May 06, 2022 Attending Provider at Admission: Ashu Wall MD Attending Provider at Discharge: Hemant Llanes Primary Care Provider: Ana Maria Flores MD Diagnoses at Discharge Discharge Diagnosis (1) Alcohol withdrawal: Status: Acute (2) Accelerated hypertension: Status: Acute (3) High anion gap metabolic acidosis: Status: Acute (4) Obstructive sleep apnea: Status: Acute (5) COPD (chronic obstructive pulmonary disease): Status: Acute (6) Type 2 diabetes mellitus: Status: Acute Reason for Visit Reason for Visit: htn Hospital Course Hospital Course Pleasant 52-year-old lady with history of alcohol dependence, DM2, HTN, COPD, was admitted for management of alcohol withdrawal after trying to [place] at home, with benzodiazepines per CIWA protocol, vitamin supplementation, IV hydration, optimization of blood pressure and diabetes control. At home recently was also found hypoglycemic with very poor oral intake. On presentation with anion gap acidosis. 1+ ketones in urine to be secondary poor oral intake less likely ketoacidosis. Anion gap improved. Her condition gradually improved, she weaned off Precedex drip, wean down on Librium. Withdrawal resolved. CIWA scores remain low. She is doing better. She feels ready to return home. She has been eating well, getting up in her room. Provided with options for further EtOH rehabilitation. She is interested in naltrexone therapy which may be a good option to reduce cravings to help with abstinence, although could not be started at the moment as she has received tramadol while in the hospital. Please revisit with her after she is 7-10 days of opioids. She and family requesting for home health care due to chronic back pain with degenerative spine disease and poor mobility for physical therapy. Physical Exam Narrative: Accompanied by family. Const: COMMON NORMALS: patient oriented x3 and alert GENERAL APPEARANCE: cooperative ORIENTATION/CONSCIOUSNESS: Yes awake HENMT: COMMON NORMALS: oropharynx normal Neck/C-Spine: COMMON NORMALS: no JVD Resp: COMMON NORMALS: normal respiratory effort and clear to auscultation bilaterally AUSCULTATION: clear to auscultation bilaterally Cardio: COMMON NORMALS: no JVD, regular rhythm, S1 normal heart sound present, S2 normal heart sound present and No murmurs present (Cardio) RHYTHM: regular rhythm HEART SOUNDS: S1 normal heart sound present and S2 normal heart sound present GI: COMMON NORMALS: Normal to inspection, nondistended, normoactive bowel sounds present, Soft to palpation and non-tender PALPATION: Yes Soft to palpation Extremity: COMMON NORMALS: no joint enlargement and no pedal edema Neuro: COMMON NORMALS: patient oriented x3 and moves all extremities SENSORIUM/ORIENTATION: Yes alert Skin: COMMON NORMALS: no rashes or lesions noted GENERAL SKIN EXAM: no rashes or lesions noted Urinary Catheter Management: Fernandes: Cath Placed During This Visit: yes, but has since been removed by the nurse Reason for Continuing Indwelling Catheter: Decision to DC Catheter Urinary Catheter Date of Insertion: 05/03/22 Urinary Catheter Time of Insertion: 10:00 Date Urinary Catheter Removed: 05/05/22 Time Urinary Catheter Discontinued: 14:20 Discharge Data Studies Completed and Pending Completed Studies During Hospitalization Category Date Time Status CT head wo con* [id number] Routine Cat Scan 05/03/22 10:35 Completed XR chest 1V portable [id number] Stat Exams 05/03/22 05:14 Completed CV. echo complete* [id number] Routine Ultrasound 05/03/22 10:17 Completed Pending at discharge Category Date Time Status Blood Culture Stat Lab 05/03/22 10:55 Results Radiology Impressions Chest X-Ray 05/03/22 05:14 IMPRESSION: No confluent infiltrates in the lungs. Head CT 05/03/22 10:35 IMPRESSION: 1. No evidence of intracranial hemorrhage or mass effect. 2. Mild small vessel changes. Mild parenchymal volume loss. 3. No acute intracranial findings. Laboratory Results WBC 5.1 10^3/uL (4.0-10.0) 05/04/22 04:02 RBC 3.66 10^6/uL (4.1-5.3) L 05/04/22 04:02 Hgb 11.5 g/dL (11.5-15.3) 05/04/22 04:02 Hct 36.4 % (37.0-47.0) L 05/04/22 04:02 MCV 99.5 fl (81-99) H 05/04/22 04:02 MCH 31.4 pg (28.0-34.0) 05/04/22 04:02 MCHC 31.6 g/dL (30.0-36.0) 05/04/22 04:02 RDW 12.6 % (12.1-15.1) 05/04/22 04:02 Plt Count 123 10^3/cmm (130-400) L D 05/04/22 04:02 MPV 11.4 fL (7.4-10.4) H 05/04/22 04:02 Neut % (Auto) 73.1 % 05/04/22 04:02 Lymph % (Auto) 15.9 % 05/04/22 04:02 [place] % (Auto) 9.2 % 05/04/22 04:02 Eos % (Auto) 0.6 % 05/04/22 04:02 Baso % (Auto) 0.8 % 05/04/22 04:02 Neut # (Auto) 3.73 10^3/uL (1.8-7.7) 05/04/22 04:02 Lymph # (Auto) 0.8 10^3/uL (0.8-4.8) 05/04/22 04:02 Lasalle # (Auto) 0.5 10^3/uL (0.2-0.9) 05/04/22 04:02 Eos # (Auto) 0.0 10^3/uL (0.0-0.8) 05/04/22 04:02 Baso # (Auto) 0.0 10^3/uL (0.0-0.1) 05/04/22 04:02 Nucleated RBC % (auto) 0 % 05/04/22 04:02 Nucleated RBCs # 0.0 /100WBC 05/04/22 04:02 PT 15.30 SECONDS (12.1-14.9) H 05/03/22 05:30 INR 1.17 (0.8-1.2) 05/03/22 05:30 APTT 29.8 SECONDS (23.9-36.7) 05/03/22 05:30 Sodium 132 mmol/L (136-145) L 05/05/22 03:49 Potassium 3.8 mmol/L (3.5-5.1) 05/05/22 03:49 Chloride 97 mmol/L (98-107) L 05/05/22 03:49 Carbon Dioxide 21 mmol/L (22-29) L 05/05/22 03:49 Anion Gap 17.8 (5-19) 05/05/22 03:49 BUN 10 mg/dL (6-20) 05/05/22 03:49 Creatinine 0.8 mg/dL (0.5-0.9) 05/05/22 03:49 GFR Calculation 74.7 mL/min (90-130) L 05/05/22 03:49 Glucose 168 mg/dL (65-115) H 05/05/22 03:49 POC Glucose 244 mg/dL (70-110) H 05/06/22 11:06 Estimat Average Glucose 169 05/03/22 05:30 Hemoglobin A1c 7.5 % (4.0-6.0) H 05/03/22 05:30 Calculated Osmolality 277 mOsm/kg (285-295) L 05/05/22 03:49 Lactic Acid 2.8 mmol/L (0.5-2.2) H 05/03/22 10:48 Lactic Acid (Sepsis) 1.7 mmol/L (0.5-2.2) 05/03/22 14:25 Calcium 9.4 mg/dL (8.5-10.5) 05/05/22 03:49 Magnesium 1.7 mg/dL (1.7-2.3) 05/04/22 04:02 Iron 203 ug/dL (37-145) H 05/03/22 05:30 Iron Cancelled 05/03/22 05:30 TIBC 412 mcg/dl 05/03/22 05:30 TIBC Cancelled 05/03/22 05:30 % Saturation 49.2 % (20-50) 05/03/22 05:30 % Saturation Cancelled 05/03/22 05:30 Unsat Iron Binding 209 ug/dL (112-347) 05/03/22 05:30 Unsat Iron Binding Cancelled 05/03/22 05:30 Total Bilirubin 1.0 mg/dL (0.15-1.2) 05/05/22 03:49 AST 79 U/L (0-32) H 05/05/22 03:49 ALT 27 U/L (0-33) 05/05/22 03:49 Alkaline Phosphatase 108 U/L (35-105) H 05/05/22 03:49 Troponin T Baseline 22 ng/L (0-10) H 05/03/22 10:48 Troponin T 120 Minute 22.19 ng/L (0-10) H 05/03/22 12:30 Delta Troponin T 0.19 ABS# (0-10) 05/03/22 12:30 Troponin T Hi Sens 6Hr 23.06 ng/L (0-10) H 05/03/22 16:48 Troponin T Hi Sens 6Hr Delta 1.06 ng/L (0-12) 05/03/22 16:48 Total Protein 7.9 g/dL (6.6-8.7) 05/05/22 03:49 Albumin 4.2 g/dL (3.5-5.2) 05/05/22 03:49 Globulin 3.7 g/dL (1.3-4.6) 05/05/22 03:49 Triglycerides 223 mg/dL (0-150) H 05/04/22 04:02 Triglycerides Cancelled 05/04/22 04:02 Cholesterol 225 mg/dL (0-200) H 05/04/22 04:02 Cholesterol Cancelled 05/04/22 04:02 LDL Cholesterol, Calc 106 mg/dL (50-129) 05/04/22 04:02 LDL Cholesterol, Calc Cancelled 05/04/22 04:02 Total VLDL Cholesterol 45 mg/dL (0-30) H 05/04/22 04:02 Total VLDL Cholesterol Cancelled 05/04/22 04:02 HDL Cholesterol 74 mg/dL (60-100) 05/04/22 04:02 HDL Cholesterol Cancelled 05/04/22 04:02 Cholesterol/HDL Ratio 3.04 mg/dL (0.0-4.40) 05/04/22 04:02 Cholesterol/HDL Ratio Cancelled 05/04/22 04:02 Vitamin B12 593 pg/mL (232-1245) 05/03/22 05:30 Folate 18.5 ng/mL (4.8-37.3) 05/03/22 05:30 Procalcitonin 0.13 ng/mL (0-0.5) 05/03/22 05:30 Procalcitonin Cancelled 05/03/22 05:30 TSH 6.30 uIU/mL (0.27-4.20) H 05/03/22 05:30 Free T4 1.11 ng/dL (0.82-1.77) 05/04/22 04:02 Free T3 3.4 PG/ML (2.0-4.4) 05/04/22 04:02 Urine Color Yellow (Yellow) 05/03/22 11:10 Urine Appearance Clear (CLEAR) 05/03/22 11:10 Urine pH 7 (5-7) 05/03/22 11:10 Ur Specific Mcqueeney 1.005 (1.005-1.030) 05/03/22 11:10 Urine Protein 1+ (Negative) H 05/03/22 11:10 Urine Glucose (UA) 4+ (Normal) H 05/03/22 11:10 Urine Ketones 1+ (Negative) H 05/03/22 11:10 Urine Blood Neg (Negative) 05/03/22 11:10 Urine Nitrate Negative (Negative) 05/03/22 11:10 Urine Bilirubin Neg (Negative) 05/03/22 11:10 Urine Urobilinogen Norm mg/dL (Negative) 05/03/22 11:10 Ur Leukocyte Esterase Negative (Negative) 05/03/22 11:10 Urine RBC 0-4 /hpf (0-2) H 05/03/22 06:09 Urine WBC 10-15 /hpf (0-5) H 05/03/22 06:09 Ur Squamous Epith Cells 15-25 /hpf (0-5) H 05/03/22 06:09 Amorphous Sediment Not Reportable 05/03/22 06:09 Urine Bacteria 2+ /hpf (NONE) H 05/03/22 06:09 Hyaline Casts Rare /lpf 05/03/22 06:09 Urine Mucus Trace /hpf 05/03/22 06:09 Ur Random Sodium 131 mmol/L 05/03/22 11:10 Ur Random Potassium 82 mmol/L 05/03/22 11:10 Ur Random Chloride 154 mmol/L 05/03/22 11:10 Salicylates < 0.3 mg/dL (3-10) L 05/03/22 05:30 Urine Opiates Screen Negative ng/mL (Negative) 05/03/22 06:09 Acetaminophen < 5.0 ug/mL (10-30) L 05/03/22 05:30 Ur Barbiturates Screen Negative ng/mL (Negative) 05/03/22 06:09 Ur Phencyclidine Scrn Negative ng/mL (Negative) 05/03/22 06:09 Ur Amphetamines Screen Negative ng/mL (Negative) 05/03/22 06:09 U Benzodiazepines Scrn Negative ng/mL (Negative) 05/03/22 06:09 Urine Cocaine Screen Negative ng/mL (Negative) 05/03/22 06:09 U Marijuana (THC) Screen Negative ng/mL (Negative) 05/03/22 06:09 Ethyl Alcohol 18 mg/dL (0-10) H 05/03/22 05:30 Serum Ketones Negative (Negative) 05/03/22 05:30 Influenza Type A Ag Negative (Negative) 05/03/22 11:15 Influenza Type B Ag Negative (Negative) 05/03/22 11:15 Vitals Last Vital Signs Temp 98.0 F 05/06/22 11:39 Pulse 81 05/06/22 11:39 Resp 15 05/06/22 11:39 BP 135/84 05/06/22 11:39 Pulse Ox 95 05/06/22 11:39 O2 Del Method 05/06/22 11:39 O2 Flow Rate 2 05/06/22 08:00 Discharge Plan Discharge Patient Disposition: Home Health Service Condition: Stable Prescriptions: New Vitamin B-1 (mononitrate) 100 mg Tablet 100 mg PO DAILY Qty: 90 0RF Thera 400 mcg Tablet 1 tab PO DAILY Qty: 90 0RF Continued atorvastatin 40 mg tablet 40 mg PO DAILY folic acid 1 mg tablet 1 mg PO DAILY irbesartan 300 mg tablet 300 mg PO DAILY metoprolol tartrate 25 mg tablet 25 mg PO BID olopatadine 0.1 % drops 1 drop ophthalmic (eye) BID Rx Instructions: separate doses by at least 6-8 hours sertraline 100 mg tablet 100 mg PO DAILY albuterol sulfate 90 mcg/actuation HFA aerosol inhaler 2 inh INHALATION Q4H PRN (Reason: shortness of breath or wheezing) Qty: 18 0RF trazodone 50 mg tablet 50 mg PO BEDTIME PRN (Reason: Sleep) aspirin 325 mg Tablet 325 mg PO DAILY omeprazole 40 mg capsule,delayed release(DR/EC) 40 mg PO DAILY potassium chloride 20 mEq tablet,ER particles/crystals 20 meq PO DAILY ibuprofen 200 mg Tablet 600 - 800 mg PO Q6H PRN (Reason: Pain) Novolog Flexpen U-100 Insulin 100 unit/mL (3 mL) insulin pen 10 unit SUBCUT BID PRN (Reason: DIABETES) Rx Instructions: PER SLIDING SCALE Levemir FlexTouch U-100 Insuln 100 unit/mL (3 mL) insulin pen 10 unit SUBCUT BID Discharge Orders: Discharge Order (Routine); Ordered 05/06/22 Ordered By: Hemant Llanes Referrals: [facility] [Other] ([facility] information. Phone number [phone]. ) [facility] [Other] (?Follow up as a walk in at [facility], walk in hours are Friday-Friday from 7:30AM-3:00PM, first come, first seen. Once you do this assessment you will be referred for appropriate services.) Ana Maria Flores MD [Primary Care Provider] - 4-7 days (please call for appointment for hospital follow up) Discharge Diet: Diabetic Discharge Activity: Increase activity as tolerated Patient Instructions: Thiamine (By mouth), Naltrexone (By mouth), Insulin Detemir (By injection), Alcohol Withdrawal (GEN), Alcohol Dependence (GEN), How to Draw Up Insulin (GEN), What to Do if Your Blood Sugar is Low (GEN) Activity Restrictions/Additional Instructions: Abstain from any alcohol. Seek rehabilitation to help you remain abstinent. Please discuss with your primary doctor regarding naltrexone. This could not be prescribed as you have been on tramadol in the hospital. You will need to be off tramadol for at least 7 to 10 days prior to prescription. Continue to optimize control of diabetes. For now we will resume Levemir at units twice a day, continue to measure blood glucose 3 times daily, in case of blood glucose is 100 or less in the morning hold Levemir. In case of glucose is 80 or less at anytime during the day or if you feel you will not be eating reduce Levemir dose to 10 units once a day and hold NovoLog sliding scale. Discharge Attestations Time Spent in Discharge Care*: greater than 30 min Quality Metrics Clinical Quality Measures [ No reported AMI, CVA or VTE this stay] Coding Level of Care Code Acute Chg FW DC note Diagnoses Alcohol withdrawal F10.939 Accelerated hypertension I10 High anion gap metabolic acidosis E87.29 Obstructive sleep apnea G47.33 COPD (chronic obstructive pulmonary disease) J44.9 Type 2 diabetes mellitus E11.9
[2022-05-06] MEDS: acetaminophen 325 mg Tablet 650 MG PO (14:19)
--- NOTE | 2022-05-06 14:22 | PC.NURSE ---
Discharge Note Patient discharged home via wheelchair accompanied by . Discharge instructions reviewed with patient and/or customer contact representative. Mobile pharmacy medications and/or prescriptions provided. Belongings/home medications returned. All belongings sent home with patient along with discharge packet. Discharge packet instructions reviewed with patient and spouse, verbalized understanding of teaching.
== END 2022-05-06 14:20 | disposition home health service (06) | DRG 897 ==
LOC: ER 06:39 → ICU 06:41 → MEDSURG 05-05 15:56
PROVIDERS: Emergency Medicine; Student in an Organized Health Care Education/Training Program; Admitting Provider Family Medicine; Emergency Provider Family Medicine; PCP Internal Medicine; Visit Provider Internal Medicine
DX: F10.229 Alcohol dependence with intoxication, unspecified (principal); E87.20 Acidosis, unspecified; F10.239 Alcohol dependence with withdrawal, unspecified; Y90.0 Blood alcohol level of less than 20 mg/100 ml; I16.0 Hypertensive urgency; G47.33 Obstructive sleep apnea (adult) (pediatric); J44.9 Chronic obstructive pulmonary disease, unspecified; E11.9 Type 2 diabetes mellitus without complications; Z79.51 Long term (current) use of inhaled steroids; Z79.891 Long term (current) use of opiate analgesic; Z79.4 Long term (current) use of insulin; K21.9 Gastro-esophageal reflux disease without esophagitis; E78.00 Pure hypercholesterolemia, unspecified; F32.A Depression, unspecified; Z87.442 Personal history of urinary calculi
CPT/HCPCS: 36415; 36416; 51702; 70450; 71045; 80048; 80053; 80061; 80306; 80307; 81001; 81003; 82009; 82436; 82607; 82746; 82962; 83036; 83540; 83550; 83605; 83735; 84133; 84145; 84300; 84439; 84443; 84481; 84484; 85025; 85610; 85730; 86403; 87040; 87449; 87804; 93005; 93306; 94640; 96361; 96372; 96374; 96375; 97110; 97116; 97161; 99285; C9113; J0360; J1644; J1815; J2060; J2405; J3411; J3490; J7030; J7613; J7644

== ENCOUNTER 2022-05-08 13:52 | Outpatient (CLI) | payer MEDICARE, BC, SELFPAY ==
--- NOTE | 2022-05-08 14:00 | US_ITS ---
WS: [id number] Ultrasound of the parotid glands and submandibular glands, 05/08/2022 Clinical Data: PAROTITIS Comparison: None. Findings: The parotid glands show uniform echotexture with no cysts or masses. The submandibular regions show n ormal lymph nodes. No cysts or masses are seen. US/US soft tissue head neck [id number] Impression: 1. Normal parotid glands and submandibular glands. 2. Normal lymph nodes are seen in the submandibular area.
== END 2022-05-08 13:53 | disposition home or self-care (01) ==
LOC: RAD 13:53
PROVIDERS: PCP Internal Medicine; Visit Provider Internal Medicine
DX: K11.20 Sialoadenitis, unspecified (principal)
CPT/HCPCS: 76536

== ENCOUNTER 2022-05-09 20:00 | Outpatient (CLI) | payer MEDICARE, BC, SELFPAY | END 2022-05-09 20:01 | disposition home or self-care (01) | LOC: SLEEP 05-10 04:35 | PROVIDERS: PCP Internal Medicine; Visit Provider Internal Medicine | DX: G47.33 Obstructive sleep apnea (adult) (pediatric) (principal) | CPT/HCPCS: 95811 ==

== ENCOUNTER 2022-05-21 10:39 | Outpatient (CLI) | payer MEDICARE, BC, MEDICAID, SELFPAY ==
--- NOTE | 2022-05-21 10:48 | US_ITS ---
WS: [id number] Left breast ultrasound, 05/21/2022 Clinical Data: ABNORMAL MAMMO Comparison: Left breast ultrasound, 03/07/2020 Findings: The well-defined density in the central portion of the left breast at the 1:00 position 2 cm of the n ipple measures 1.13 x 2.23 x 2.34 cm. No other lesions were seen. US/US breast LT limited* [id number] Impression: 1. No change in lesion in the central portion left breast. 2. No other abnormalities are seen. 3. Return for annual screening mammograms. BIRADS: 2-Benign FOLLOW UP: 1 Year Follow-up
--- NOTE | 2022-05-21 10:48 | MM_ITS ---
WS: [id number] Bilateral diagnostic 3D tomosynthesis digital mammogram, 05/21/2022 Clinical Data: ABNORMAL MAMMO Comparison: 03/07/2020, 02/11/2020, 10/12/2018, 07/25/2017, 07/11/2015, 04/11/2014, 12/30/2012, 03/20/2011, 1 , 02/24/2009, 02/18/2008. Findings: The breast parenchymal pattern shows fibroglandular tissue. The right breast is normal. The well-defi shoshana left breast density measuring 2.2 cm with a definite border has not changed. There are no spicula reina masses nor clustered calcifications. There are no secondary signs of carcinoma. MM/[place] [id number] Impression: 1. Negative right breast. 2. No change in central left breast nodule. 3. Left breast ultrasound BIRADS: 2-Benign FOLLOW UP: See Report The CAD swatch checker was used.
== END 2022-05-21 10:40 | disposition home or self-care (01) ==
LOC: RAD 10:39
PROVIDERS: PCP Internal Medicine; Visit Provider Internal Medicine
DX: R92.8 Other abnormal and inconclusive findings on diagnostic imaging of breast (principal); N63.20 Unspecified lump in the left breast, unspecified quadrant
CPT/HCPCS: 76642; 77062; G0279

== ENCOUNTER 2022-05-24 09:57 | Outpatient (CLI) | payer MEDICARE, BC, MEDICAID, SELFPAY ==
--- NOTE | 2022-05-24 10:20 | US_ITS ---
WS: [id number] RIGHT UPPER QUADRANT ULTRASOUND HISTORY: ELEVATED LIVER ENZYMES COMPARISON: None available. Liver: 20.6 cm in length. Liver is moderately enlarged. Surface of the liver is slightly irregular an d nodular. Coarse echotexture throughout the liver. No mass or bile duct dilatation. Portal Vein: Normal hepatopetal flow with monophasic waveform. Gallbladder: Normally distended gallbladder with no stones or wall thickening. CBD: 0.6 cm Pancreas: Normal size and echogenicity. Right kidney: 10.7 cm in length. Normal size and echogenicity. No hydronephrosis or mass. Aorta and IVC: Unremarkable abdominal aorta and IVC. No ascites. US/US abdomen limited [id number] IMPRESSION: 1. Hepatomegaly and coarse echotexture throughout the liver. Suspect early acosta nges of cirrhosis. 2. Normal gallbladder.
== END 2022-05-24 09:58 | disposition home or self-care (01) ==
PROVIDERS: PCP Internal Medicine; Visit Provider Internal Medicine
DX: R74.8 Abnormal levels of other serum enzymes (principal); R16.0 Hepatomegaly, not elsewhere classified
CPT/HCPCS: 76705

== ENCOUNTER 2022-06-03 07:56 | Outpatient (CLI) | payer MEDICARE, BC, SELFPAY ==
--- NOTE | 2022-06-03 08:05 | MR_ITS ---
WS: [id number] MRI LUMBAR SPINE NONCONTRAST TECHNIQUE: Sagittal T1, T2 and STIR imaging. Axial T1 and T2 imaging. CLINICAL INFORMATION: DEGENERATIVE DISC DZ LSPINE W/RADICULOPATHY COMPARISON: None. FINDINGS: Counting performed from the craniocervical junction. S1 is partially lumbarized. Disc bulging worse a t L1-L2, L3-L4, L4-L5, and L5-S1. T11-T12: LEFT pericentral disc protrusion with slight effacement of ventral thecal sac. Spinal canal and foramen are patent. Mild facet arthropathy. T12-L1: Tiny shallow RIGHT pericentral protrusion. Spinal canal and foramen are patent. Mild facet ar thropathy. L1-L2: Mild annular bulging. Mild facet arthropathy. Central and RIGHT pericentral disc protrusion. S light effacement of ventral thecal sac. Spinal canal and foramen are patent. L2-L3: Mild annular bulging. Mild facet arthropathy. Spinal canal and foramen are patent. L3-L4: Mild disc bulging with osteophytic ridging. Mild central canal stenosis. Mild RIGHT and no sig nificant LEFT foraminal narrowing. Moderate facet arthropathy. L4-L5: Moderate to severe central canal stenosis due to disc bulging in combination with facet arthro harriet and ligamentum flavum hypertrophy. Moderate LEFT and mild RIGHT foraminal narrowing. L5-S1: Disc osteophyte complex with endplate ridging. Moderate central canal stenosis. Mild to modera te RIGHT foraminal narrowing. Moderate facet arthropathy. LEFT foramen is patent. Impingement on the traversing RIGHT S1 nerve root. Visualized pelvic bony structures: Normal. Paravertebral soft tissues: Normal. MR/MR lumbar spine wo con* [id number] IMPRESSION: 1. Mild lumbar curve. 2. Moderate to severe central canal stenosis L4-L5 and moderate central canal stenosis L5-S1. Impingement traversing RIGHT S1 nerve root. 3. Central disc protrusion L1-L2 with slight craniocaudal extension of disc ma terial. Spinal canal remains patent. Effacement of ventral thecal sac. 4. Mild central canal stenosis L3-L4. 5. Mild RIGHT L3-L4, moderate LEFT L4-L5, mild to moderate RIGHT L5-S1 foramin al narrowing. 6. LEFT pericentral disc protrusion T11-T12.
== END 2022-06-03 07:57 | disposition home or self-care (01) ==
PROVIDERS: PCP Internal Medicine; Visit Provider Internal Medicine
DX: M51.17 Intervertebral disc disorders with radiculopathy, lumbosacral region (principal)
CPT/HCPCS: 72148

== ENCOUNTER 2022-10-13 20:02 | Emergency (ER) | payer MEDICARE, BC, MEDICAID, SELFPAY ==
[2022-10-13 20:16] VITALS: BP 148/86; PULSE 77; RESP 14; TEMP 36.8; O2SAT 96; BMI 31.8
--- NOTE | 2022-10-13 20:28 | W.ED.ANIMALB ---
HPI - Animal Bite General: Chief Complaint: Animal Bite Stated Complaint: dog bite Time Seen by Provider: 10/13/22 20:10 Source: patient Mode of arrival: ambulatory Limitations: no limitations History of Present Illness: 52-year-old female that states she had her neighbors dog bite her on her right hand she does have a small 1 similar laceration to the palm of her right hand she is unsure when her last tetanus was she states that the dog was not up-to-date on his rabies vaccine either. She denies any other injuries she rates her pain a 2 out of 10. Associated symptoms: Deny fever(s) or headache(s) Review of Systems Const: Denies: fever(s) ENMT: Denies: throat pain Card: Denies: chest pain Resp: Denies: dyspnea GI: Denies: abdominal pain Musc: Reports: extremity pain; Denies: back pain Skin/Breast: Denies: rash Neuro: Denies: headache(s) PFSH ED PFSH: Medical History Depression GERD (gastroesophageal reflux disease) HTN (hypertension) Hypercholesteremia Hypothyroidism (acquired) Kidney stone FREYD (obstructive sleep apnea) Psychiatric care Type 2 diabetes mellitus Family History Other Afib CAD (coronary artery disease) Diabetes Hyperlipidemia Hypertension Social History Smoking and tobacco status: never smoked Second hand smoke exposure: Yes Alcohol intake: current Alcohol intake frequency: holidays/special occasions only Substance/Drug Use: never Lives independently: Yes Household members: spouse Marital status: Current occupational status: employed Current occupational exposures/hazards: No Do you think of yourself as: Straight/Heterosexual Current gender identity: Female Physical Exam Const: COMMON NORMALS: no acute distress and patient oriented x3 HENMT: COMMON NORMALS: normocephalic and atraumatic HEAD & SCALP: normocephalic and atraumatic Eye: COMMON NORMALS: conjunctivae normal CONJUNCTIVA: Yes conjunctivae normal Neck/C-Spine: COMMON NORMALS: supple Chest: COMMONS NORMALS: normal inspection of the chest Resp: COMMON NORMALS: normal respiratory effort Cardio: COMMON NORMALS: regular rate RATE: regular rate GI: INSPECTION: Yes normal to inspection Extremity: NARRATIVE EXTREMITY EXAM: Dog bite with 1 cm laceration is superficial to the palm of the right hand Neuro: COMMON NORMALS: patient oriented x3 Psych: COMMON NORMALS: mental status grossly normal Skin: COMMON NORMALS: no rashes or lesions noted GENERAL SKIN EXAM: no rashes or lesions noted Course Vital Signs: Vital signs: Vital Signs Temperature 98.2 F 10/13/22 20:16 Pulse Rate 77 10/13/22 20:16 Respiratory Rate 14 10/13/22 20:16 Blood Pressure 148/86 10/13/22 20:16 Pulse Oximetry 96 10/13/22 20:16 Oxygen Delivery Me thod Room Air 10/13/22 20:16 MDM - Animal Bite Medical Decision Making Patient presents with a dog bite to the palm of right hand is roughly 1 cm in nature does not require sutures we will Steri-Strip we will place her on Augmentin for prophylaxis we will give her tetanus and start her on the rabies series. She is to return in 3 days for repeat rabies vaccine Discharge Plan Discharge Patient Disposition: Home Clinical Impression: Dog bite Condition: Stable Prescriptions: New amoxicillin-pot clavulanate [Augmentin] 500-125 mg tablet 1 tab PO BID Qty: 14 0RF No Action folic acid 1 mg tablet 1 mg PO DAILY metoprolol tartrate 25 mg tablet 25 mg PO BID sertraline 100 mg tablet 100 mg PO DAILY levothyroxine 25 mcg capsule 25 mcg PO DAILY acetaminophen [Tylenol Extra Strength] 500 mg tablet 500 mg PO BID PRN (Reason: fever or pain) PNV [id number] 90 mg iron- 1 mg-200 mg capsule 1 cap PO DAILY methocarbamol 500 mg tablet 500 mg PO TID PRN hydrocodone-acetaminophen 10-325 mg tablet 1 tab PO Q6H PRN magnesium 200 mg tablet 400 mg PO DAILY gabapentin 300 mg capsule 300 mg PO TID albuterol sulfate 90 mcg/actuation HFA aerosol inhaler 2 inh INHALATION Q4H PRN (Reason: shortness of breath or wheezing) Qty: 18 0RF aspirin 325 mg Tablet 325 mg PO DAILY omeprazole 40 mg capsule,delayed release(DR/EC) 40 mg PO DAILY potassium chloride 20 mEq tablet,ER particles/crystals 20 meq PO DAILY Novolog FlexPen U-100 Insulin 100 unit/mL (3 mL) insulin pen 10 unit SUBCUT BID PRN (Reason: DIABETES) Rx Instructions: PER SLIDING SCALE Levemir FlexTouch U-100 Insuln 100 unit/mL (3 mL) insulin pen 10 unit SUBCUT BID Vitamin B-1 (mononitrate) 100 mg Tablet 100 mg PO DAILY Qty: 90 0RF Discharge Orders: Discharge ED (Routine); Ordered 10/13/22 Ordered By: Pérez Tucker Referrals: Ana Maria Flores MD [Primary Care Provider] - 1-3 days Discharge Diet: Advance as tolerated Discharge Activity: Resume usual activity Patient Instructions: Animal Bite (ED) Coding Level of Care Code ED Anatomy And Physiology Instructor for Shaun Vu
[2022-10-13] MEDS: tetanus-dipt-pertussis 0.5 mL SDV IM (21:06)
[2022-10-13] MEDS: rabies vaccine 2.5 unit SDV IM (21:11)
[2022-10-13] MEDS: amoxicillin-clav 500-125 mg Tablet 1 TAB PO (21:15)
== END 2022-10-13 21:23 | disposition home or self-care (01) ==
PROVIDERS: Emergency Provider Emergency Medicine; PCP Internal Medicine
DX: S61.411A Laceration without foreign body of right hand, initial encounter (principal); W54.0XXA Bitten by dog, initial encounter; Z20.3 Contact with and (suspected) exposure to rabies; Z29.14 Encounter for prophylactic rabies immune globulin; Z23 Encounter for immunization
CPT/HCPCS: 90375; 90471; 90675; 90715; 99283

== ENCOUNTER 2022-10-16 14:55 | Emergency (ER) | payer MEDICARE, BC, MEDICAID, SELFPAY ==
[2022-10-16 14:58] VITALS: BP 182/105; PULSE 93; RESP 17; TEMP 36.9; O2SAT 96; BMI 31.8
--- NOTE | 2022-10-16 15:53 | ED_ITS ---
HPI - Animal Bite General: Chief Complaint: Animal Bite Stated Complaint: second Rabies shot Time Seen by Provider: 10/16/22 15:18 History of Present Illness: Patient is a 52-year-old female who comes to the ED for second rabies shot. Patient was seen here in the ED after dog bite to left hand back on October 13 and started on rabies postexposure prophylaxis. She received the rabies shot and immunoglobulin at her last visit. Her dog bite on left hand is healing well and denies any complications with that. Denies any reactions or complications with previous rabies shot. Associated symptoms: Deny chills, fever(s) or headache(s) Review of Systems Const: Denies: fever(s), chills or fatigue Eyes: Denies: change in vision or eye discomfort ENMT: Denies: throat pain, odynophagia, nasal discharge or nasal congestion Card: Denies: chest pain, palpitations, edema, swelling of feet/ankles, dyspnea on exertion or orthopnea Resp: Denies: dyspnea, productive cough or non-productive cough GI: Denies: abdominal pain, nausea, vomiting, diarrhea, constipation or hematochezia : Denies: flank pain, dysuria or hematuria Musc: Denies: neck pain, back pain or extremity swelling Skin/Breast: Reports: new lesions (Dog bite to left hand); Denies: rash Neuro: Denies: headache(s), numbness in extremities or weakness in extremities PFSH ED PFSH: Medical History Depression GERD (gastroesophageal reflux disease) HTN (hypertension) Hypercholesteremia Hypothyroidism (acquired) Kidney stone FREDY (obstructive sleep apnea) Psychiatric care Type 2 diabetes mellitus Family History Other Afib CAD (coronary artery disease) Diabetes Hyperlipidemia Hypertension Social History Smoking and tobacco status: never smoked Second hand smoke exposure: Yes Alcohol intake: current Alcohol intake frequency: holidays/special occasions only Substance/Drug Use: never Lives independently: Yes Household members: spouse Marital status: Current occupational status: employed Current occupational exposures/hazards: No Do you think of yourself as: Straight/Heterosexual Current gender identity: Female Physical Exam 2 Const: COMMON NORMALS: patient oriented x3 HENMT: COMMON NORMALS: normocephalic HEAD & SCALP: normocephalic MOUTH: Normal oral and palatal mucosa present THROAT: posterior oropharynx normal and uvula midline Neck/C-Spine: COMMON NORMALS: supple GENERAL: Yes normal visual inspection Resp: COMMON NORMALS: normal respiratory effort, No retractions, No use of accessory muscles and clear to auscultation bilaterally AUSCULTATION: clear to auscultation bilaterally Cardio: COMMON NORMALS: regular rate, regular rhythm, S1 normal heart sound present, S2 normal heart sound present, No gallops present (Cardio), No clicks present (Cardio), No murmurs present (Cardio) and Peripheral pulses 2+ throughout RATE: regular rate RHYTHM: regular rhythm HEART SOUNDS: S1 normal heart sound present and S2 normal heart sound present PERIPHERAL PULSES: Peripheral pulses 2+ throughout GI: COMMON NORMALS: Normal to inspection, nondistended, normoactive bowel sounds present, Soft to palpation, non-tender and no masses PALPATION: Yes Soft to palpation : COMMON NORMALS: Yes no CVA tenderness BLADDER/KIDNEY EXAM: Yes no CVA tenderness Back/Pelvis: COMMON NORMALS: no CVA tenderness Extremity: NARRATIVE EXTREMITY EXAM: Dog bite to the left hand is healing well. No signs of any cellulitis or purulent drainage seen. Neuro: COMMON NORMALS: patient oriented x3 GAIT: Yes Normal gait present Skin: GENERAL SKIN EXAM: dry skin Course Vital Signs: Vital signs: Vital Signs Temperature 98.4 F 10/16/22 14:58 Pulse Rate 93 10/16/22 14:58 Respiratory Rate 17 10/16/22 14:58 Blood Pressure 182/105 10/16/22 14:58 Pulse Oximetry 96 10/16/22 14:58 Oxygen Delivery Me thod Room Air 10/16/22 14:58 MDM - Animal Bite Medical Decision Making Patient is a 52-year-old female who comes to the ED for second rabies shot. Patient was seen here in the ED after dog bite to left hand back on October 13 and started on rabies postexposure prophylaxis. She received the rabies shot and immunoglobulin at her last visit. Her dog bite on left hand is healing well and denies any complications with that. Denies any reactions or complications with previous rabies shot. Dog bite to the left hand is healing well. No signs of any cellulitis or purulent drainage seen. Vital stable. Patient was given rabies shot and stable for discharge home. Told to return to have third rabies shot on October 20. Patient understood and agreed with plan. Discharge Plan Discharge Patient Disposition: Home Clinical Impression: Encounter for repeat administration of rabies vaccination Condition: Stable Prescriptions: No Action folic acid 1 mg tablet 1 mg PO DAILY metoprolol tartrate 25 mg tablet 25 mg PO BID sertraline 100 mg tablet 100 mg PO DAILY levothyroxine 25 mcg capsule 25 mcg PO DAILY acetaminophen [Tylenol Extra Strength] 500 mg tablet 500 mg PO BID PRN (Reason: fever or pain) PNV [id number] 90 mg iron- 1 mg-200 mg capsule 1 cap PO DAILY methocarbamol 500 mg tablet 500 mg PO TID PRN hydrocodone-acetaminophen 10-325 mg tablet 1 tab PO Q6H PRN magnesium 200 mg tablet 400 mg PO DAILY gabapentin 300 mg capsule 300 mg PO TID naltrexone 50 mg tablet 50 mg PO DAILY Qty: 30 2RF albuterol sulfate 90 mcg/actuation HFA aerosol inhaler 2 inh INHALATION Q4H PRN (Reason: shortness of breath or wheezing) Qty: 18 0RF aspirin 325 mg Tablet 325 mg PO DAILY omeprazole 40 mg capsule,delayed release(DR/EC) 40 mg PO DAILY potassium chloride 20 mEq tablet,ER particles/crystals 20 meq PO DAILY Novolog FlexPen U-100 Insulin 100 unit/mL (3 mL) insulin pen 10 unit SUBCUT BID PRN (Reason: DIABETES) Rx Instructions: PER SLIDING SCALE Levemir FlexTouch U-100 Insuln 100 unit/mL (3 mL) insulin pen 10 unit SUBCUT BID Vitamin B-1 (mononitrate) 100 mg Tablet 100 mg PO DAILY Qty: 90 0RF Augmentin 500-125 mg tablet 1 tab PO BID Qty: 14 0RF Discharge Orders: Discharge ED (Routine); Ordered 10/16/22 Ordered By: Phil Robbins Referrals: Ana Maria Flores MD [Primary Care Provider] - Discharge Diet: Regular Discharge Activity: Increase activity as tolerated Activity Restrictions/Additional Instructions: Follow-up with medical provider as directed. Return to have your third rabies shot on October 20 and then your fourth and final rabies shot will be on October 27. Continue taking all medications as previously prescribed. Return to the ER or your medical provider if condition worsens. Please read and understand discharge instructions. Thank you for choosing [facility] for your healthcare needs today. Please realize this is an emergency room and that we are providing you with a medical screening exam and this may not be complete and all inclusive of all the testing and or work up that you may need to determine your ailment or severity of your illness. It is very important that you follow up as instructed or that you return to the Emergency Department should you have concerns or if your condition changes or worsens in any way. Coding Level of Care Code ED Relay Repairer for Shaun Vu
[2022-10-16] MEDS: rabies vaccine 2.5 unit SDV IM (16:06)
== END 2022-10-16 16:12 | disposition home or self-care (01) ==
PROVIDERS: Emergency Provider Physician Assistant; PCP Internal Medicine
DX: Z20.3 Contact with and (suspected) exposure to rabies (principal); Z23 Encounter for immunization
CPT/HCPCS: 90471; 90675; 99283

== ENCOUNTER 2022-10-21 18:21 | Emergency (ER) | payer MEDICARE, BC, MEDICAID, SELFPAY ==
[2022-10-21 18:25] VITALS: BP 127/79; PULSE 100; RESP 16; TEMP 36.7; O2SAT 96; BMI 31.8
--- NOTE | 2022-10-21 18:27 | W.ED.GENADLT ---
HPI - General Adult General: Stated complaint: here for 3rd rabies shots Time Seen by Provider: 10/21/22 18:25 Source: patient Mode of arrival: ambulatory Limitations: no limitations History of Present Illness: 52-year-old female had a dog bite 1 week ago she is here for her third rabies vaccine wound her left hand's been healing well she has no fever no redness she has no other complaints at this time Associated symptoms: Deny rash Review of Systems Const: Denies: fever(s) Musc: Denies: extremity pain or joint pain Skin/Breast: Denies: rash or erythema PFSH ED PFSH: Medical History Depression GERD (gastroesophageal reflux disease) HTN (hypertension) Hypercholesteremia Hypothyroidism (acquired) Kidney stone FREDY (obstructive sleep apnea) Psychiatric care Type 2 diabetes mellitus Family History Other Afib CAD (coronary artery disease) Diabetes Hyperlipidemia Hypertension Social History Smoking and tobacco status: never smoked Second hand smoke exposure: Yes Alcohol intake: current Alcohol intake frequency: holidays/special occasions only Substance/Drug Use: never Lives independently: Yes Household members: spouse Marital status: Current occupational status: employed Current occupational exposures/hazards: No Do you think of yourself as: Straight/Heterosexual Current gender identity: Female Physical Exam Const: COMMON NORMALS: no acute distress and patient oriented x3 HENMT: COMMON NORMALS: normocephalic HEAD & SCALP: normocephalic Chest: COMMONS NORMALS: normal inspection of the chest Resp: COMMON NORMALS: normal respiratory effort Extremity: OTHER: Dog bite to left hand on the palmar healing well no erythema or signs of infection Neuro: COMMON NORMALS: patient oriented x3 Psych: COMMON NORMALS: mental status grossly normal Skin: NARRATIVE SKIN EXAM: Dog bite to left hand on the palmar healing well no erythema or signs of infection [facility] - General Adult Medical Decision Making Patient presents here for her third rabies vaccine she is well-appearing here has no other complaints her wound is healing on her left hand did give her her vaccine she is return for her fourth and final as scheduled Medical Records I reviewed the patient's medical records. Discharge Plan Discharge Patient Disposition: Home Clinical Impression: Encounter for repeat administration of rabies vaccination Condition: Stable Prescriptions: No Action folic acid 1 mg tablet 1 mg PO DAILY metoprolol tartrate 25 mg tablet 25 mg PO BID sertraline 100 mg tablet 100 mg PO DAILY levothyroxine 25 mcg capsule 25 mcg PO DAILY acetaminophen [Tylenol Extra Strength] 500 mg tablet 500 mg PO BID PRN (Reason: fever or pain) PNV [id number] 90 mg iron- 1 mg-200 mg capsule 1 cap PO DAILY methocarbamol 500 mg tablet 500 mg PO TID PRN hydrocodone-acetaminophen 10-325 mg tablet 1 tab PO Q6H PRN magnesium 200 mg tablet 400 mg PO DAILY gabapentin 300 mg capsule 300 mg PO TID naltrexone 50 mg tablet 50 mg PO DAILY Qty: 30 2RF albuterol sulfate 90 mcg/actuation HFA aerosol inhaler 2 inh INHALATION Q4H PRN (Reason: shortness of breath or wheezing) Qty: 18 0RF aspirin 325 mg Tablet 325 mg PO DAILY omeprazole 40 mg capsule,delayed release(DR/EC) 40 mg PO DAILY potassium chloride 20 mEq tablet,ER particles/crystals 20 meq PO DAILY Novolog FlexPen U-100 Insulin 100 unit/mL (3 mL) insulin pen 10 unit SUBCUT BID PRN (Reason: DIABETES) Rx Instructions: PER SLIDING SCALE Levemir FlexTouch U-100 Insuln 100 unit/mL (3 mL) insulin pen 10 unit SUBCUT BID Vitamin B-1 (mononitrate) 100 mg Tablet 100 mg PO DAILY Qty: 90 0RF Augmentin 500-125 mg tablet 1 tab PO BID Qty: 14 0RF Discharge Orders: Discharge ED (Routine); Ordered 10/21/22 Ordered By: Pérez Tucker Referrals: Ana Maria Flores MD [Primary Care Provider] - Discharge Diet: Advance as tolerated Discharge Activity: Resume usual activity Patient Instructions: Rabies Vaccine (By injection) Coding Level of Care Code ED Marketing Support Coordinator for Shaun Vu
[2022-10-21] MEDS: rabies vaccine 2.5 unit SDV IM (18:36)
== END 2022-10-21 18:48 | disposition home or self-care (01) ==
PROVIDERS: Emergency Provider Emergency Medicine; PCP Internal Medicine
DX: Z29.14 Encounter for prophylactic rabies immune globulin (principal); Z20.3 Contact with and (suspected) exposure to rabies; Z23 Encounter for immunization; W54.0XXA Bitten by dog, initial encounter; Z79.82 Long term (current) use of aspirin; Z79.4 Long term (current) use of insulin; Z77.22 Contact with and (suspected) exposure to environmental tobacco smoke (acute) (chronic); I10 Essential (primary) hypertension; E11.9 Type 2 diabetes mellitus without complications
CPT/HCPCS: 90471; 90675; 99283

== ENCOUNTER 2022-10-26 16:48 | Emergency (ER) | payer MEDICARE, BC, MEDICAID, SELFPAY ==
[2022-10-26 16:59] VITALS: BP 157/92; PULSE 95; RESP 16; TEMP 36.6; O2SAT 96; BMI 31.8
--- NOTE | 2022-10-26 17:24 | W.ED.ANIMALB ---
HPI - Animal Bite General: Chief Complaint: Animal Bite Stated Complaint: fourth rabies shot Time Seen by Provider: 10/26/22 17:24 History of Present Illness: Presents for fourth rabies vaccination. Left hand was identified. Patient denies any concerns. Review of Systems General: Reports: 10 or more systems reviewed and unremarkable except in HPI and below PFSH ED PFSH: Medical History Depression GERD (gastroesophageal reflux disease) HTN (hypertension) Hypercholesteremia Hypothyroidism (acquired) Kidney stone FREDY (obstructive sleep apnea) Psychiatric care Type 2 diabetes mellitus Family History Other Afib CAD (coronary artery disease) Diabetes Hyperlipidemia Hypertension Social History Smoking and tobacco status: never smoked Second hand smoke exposure: Yes Alcohol intake: current Alcohol intake frequency: holidays/special occasions only Substance/Drug Use: never Lives independently: Yes Household members: spouse Marital status: Current occupational status: employed Current occupational exposures/hazards: No Do you think of yourself as: Straight/Heterosexual Current gender identity: Female Physical Exam Const: COMMON NORMALS: alert GENERAL APPEARANCE: cooperative and well developed HENMT: COMMON NORMALS: normocephalic and atraumatic HEAD & SCALP: normocephalic and atraumatic Eye: COMMON NORMALS: conjunctivae normal CONJUNCTIVA: Yes conjunctivae normal SCLERA: sclerae normal Neck/C-Spine: COMMON NORMALS: supple GENERAL: Yes trachea midline Resp: COMMON NORMALS: normal respiratory effort EFFORT & INSPECTION: Yes able to speak in complete sentences Cardio: COMMON NORMALS: regular rate and regular rhythm RATE: regular rate RHYTHM: regular rhythm GI: COMMON NORMALS: Soft to palpation PALPATION: Yes Soft to palpation and No Tenderness to palpation present (GI) Extremity: NARRATIVE EXTREMITY EXAM: Wound appears to be adequately healing. GENERAL: Yes normal exam except as noted and No edema Neuro: COMMON NORMALS: moves all extremities SENSORIUM/ORIENTATION: Yes alert and No Orientation impaired Psych: COMMON NORMALS: mental status grossly normal and Normal thought process present THOUGHT PROCESS: Normal thought process present Course Vital Signs: Vital signs: Vital Signs Temperature 97.9 F 10/26/22 16:59 Pulse Rate 96 10/26/22 17:48 Respiratory Rate 16 06/24/23 17:48 Blood Pressure 157/92 10/26/22 16:59 Pulse Oximetry 95 10/26/22 17:48 MDM - Animal Bite Medical Decision Making 52-year-old lady presenting with need for fourth rabies vaccine. Clinically nontoxic and vitally satisfactory. Vaccine given and patient discharged in satisfactory condition. Medical Records I reviewed the patient's medical records. Lab Data I reviewed the patient's lab results. Discharge Plan Discharge Patient Disposition: Home Clinical Impression: Bite by animal Condition: Stable Prescriptions: No Action folic acid 1 mg tablet 1 mg PO DAILY metoprolol tartrate 25 mg tablet 25 mg PO BID sertraline 100 mg tablet 100 mg PO DAILY levothyroxine 25 mcg capsule 25 mcg PO DAILY acetaminophen [Tylenol Extra Strength] 500 mg tablet 500 mg PO BID PRN (Reason: fever or pain) PNV [id number] 90 mg iron- 1 mg-200 mg capsule 1 cap PO DAILY methocarbamol 500 mg tablet 500 mg PO TID PRN hydrocodone-acetaminophen 10-325 mg tablet 1 tab PO Q6H PRN ramipril [Altace] 2.5 mg capsule 2.5 mg PO BID acamprosate 333 mg tablet,delayed release (DR/EC) 666 mg PO TID Qty: 180 2RF Rx Instructions: administer with meals magnesium 200 mg tablet 400 mg PO DAILY gabapentin 300 mg capsule 300 mg PO TID naltrexone 50 mg tablet 50 mg PO DAILY Qty: 30 2RF albuterol sulfate 90 mcg/actuation HFA aerosol inhaler 2 inh INHALATION Q4H PRN (Reason: shortness of breath or wheezing) Qty: 18 0RF aspirin 325 mg Tablet 325 mg PO DAILY omeprazole 40 mg capsule,delayed release(DR/EC) 40 mg PO DAILY potassium chloride 20 mEq tablet,ER particles/crystals 20 meq PO DAILY Novolog FlexPen U-100 Insulin 100 unit/mL (3 mL) insulin pen 10 unit SUBCUT BID PRN (Reason: DIABETES) Rx Instructions: PER SLIDING SCALE Levemir FlexTouch U-100 Insuln 100 unit/mL (3 mL) insulin pen 10 unit SUBCUT BID Vitamin B-1 (mononitrate) 100 mg Tablet 100 mg PO DAILY Qty: 90 0RF Augmentin 500-125 mg tablet 1 tab PO BID Qty: 14 0RF Discharge Orders: Discharge ED (Routine); Ordered 10/26/22 Ordered By: Jorge Vuong Referrals: Ana Maria Flores MD [Primary Care Provider] - Discharge Diet: Usual diet Discharge Activity: Resume usual activity Patient Instructions: Rabies Vaccine (By injection), Animal Bite (ED) Activity Restrictions/Additional Instructions: Thank you for visiting the emergency department. You were seen and evaluated for need for rabies vaccine. Please continue local wound care. Please follow-up with your primary care provider. Return for anything that you are concerned about and feel needs emergency department evaluation. Coding Level of Care Code ED Retail Brand Ambassador for Shaun Vu
[2022-10-26] MEDS: rabies vaccine 2.5 unit SDV IM (17:36)
[2022-10-26 17:48] VITALS: PULSE 96; RESP 16; O2SAT 95
== END 2022-10-26 17:50 | disposition home or self-care (01) ==
PROVIDERS: Emergency Provider Emergency Medicine; PCP Internal Medicine
DX: Z29.14 Encounter for prophylactic rabies immune globulin (principal); Z20.3 Contact with and (suspected) exposure to rabies; Z23 Encounter for immunization; Z79.4 Long term (current) use of insulin; I10 Essential (primary) hypertension; E11.9 Type 2 diabetes mellitus without complications; Z77.22 Contact with and (suspected) exposure to environmental tobacco smoke (acute) (chronic); W64.XXXA Exposure to other animate mechanical forces, initial encounter
CPT/HCPCS: 90471; 90675; 99283

== ENCOUNTER 2022-11-15 11:17 | Emergency (ER) | payer MEDICARE, BC, MEDICAID, SELFPAY ==
[2022-11-15 11:46] VITALS: BP 159/93; PULSE 62; RESP 16; TEMP 36.8; O2SAT 93; BMI 31.8
--- NOTE | 2022-11-15 11:56 | XRR_ITS ---
PROCEDURE INFORMATION: Exam: XR Right Ribs with PA Chest Exam date and time: 11/15/2022 12:17 PM Age: 52 years old Clinical indication: Injury or trauma; Fall; Rib area; Blunt trauma (contusions or hematomas); Additional info: Right rib pain, fall TECHNIQUE: Imaging protocol: Radiologic exam of the right ribs with PA chest. 4image(s) are provided. Views: 3 views COMPARISON: 1. CR XR chest 1V portable [id number] 05/03/2022 5:[address] chest wo con [id number] 05/02/2020 8:58 AM 3. CR XR chest 1V portable [id number] 07/14/2019 1:08 PM FINDINGS: Lungs: There is some subsegmental atelectasis versus post inflammatory scarring demonstrated. This is left basilar predominant and may be subtly increased. No lobar consolidation is appreciated. There appear to be some granulomatous calcifications for example on the left. There is some mild chronic air trapping appearance overall. Pleural spaces: There is some slight costophrenic angle blunting. No pneumothorax is appreciated. Heart/Mediastinum: The cardiomediastinal silhouette is upper normal in size.This can be seen with central averaging as well as ana laura enlargement.No cardiac decompensation is appreciated. Diaphragm: There is slight asymmetric right hemidiaphragm elevation. Bones/joints: There is some mild chronic degeneration about the shoulders. Soft tissues: No radiopaque foreign body or subcutaneous emphysema is appreciated. Other findings: No other significant interval changes are appreciated. XR/XR ribs RT mn 3V w [id number] IMPRESSION: 1. Osseous alignment is maintained.No interval fracture or dislocation is appreciated. 2. There is some subpleural scarring and granulomatous appearance left lung base more so than right. No lobar type consolidation or cardiac decompensation is appreciated.
--- NOTE | 2022-11-15 12:16 | ED_ITS ---
HPI - Abdominal Pain General: Chief Complaint: Abdominal Pain Stated Complaint: R rib injury & coughing up bloody mucus Time Seen by Provider: 11/15/22 11:53 History of Present Illness: Patient presents to the ER complaining of right lateral rib and flank pain. Patient states she was trying to get up in her bed last night when she slipped off the bed and fell and landed on a trash can to this area. Patient does have bruising to this area. It is tender to touch. Patient says it hurts worse when she takes a big deep breath twists or moves. Patient denies any head pain or loss of consciousness. Review of Systems General: Reports: 10 or more systems reviewed and unremarkable except in HPI and below PFSH ED PFSH: Medical History Depression GERD (gastroesophageal reflux disease) HTN (hypertension) Hypercholesteremia Hypothyroidism (acquired) Kidney stone FREDY (obstructive sleep apnea) Psychiatric care Type 2 diabetes mellitus Family History Other Afib CAD (coronary artery disease) Diabetes Hyperlipidemia Hypertension Social History Smoking and tobacco status: never smoked Second hand smoke exposure: Yes Alcohol intake: current Alcohol intake frequency: holidays/special occasions only Substance/Drug Use: never Lives independently: Yes Household members: spouse Marital status: Current occupational status: employed Current occupational exposures/hazards: No Do you think of yourself as: Straight/Heterosexual Current gender identity: Female Physical Exam Const: COMMON NORMALS: no acute distress, average body habitus, patient oriented x3, no limitations, healthy appearing, alert and well nourished HENMT: COMMON NORMALS: normocephalic, atraumatic, hearing grossly normal bilaterally, external ears normal, Normal external nose present and moist oral mucous membranes HEAD & SCALP: normocephalic and atraumatic NOSE: Normal external nose present EXTERNAL EAR: Yes external ears normal Neck/C-Spine: COMMON NORMALS: full ROM, no lymphadenopathy, supple, no meningeal signs, no JVD and Thyroid normal THYROID: Thyroid normal Chest: COMMONS NORMALS: normal inspection of the chest; negative for normal palpation of entire chest wall (Palpation of right lateral lower ribs tender to palpate and ecchymosis note) Resp: COMMON NORMALS: normal respiratory effort, No retractions, No use of accessory muscles and clear to auscultation bilaterally AUSCULTATION: clear to auscultation bilaterally Cardio: COMMON NORMALS: no JVD, regular rate, regular rhythm, S1 normal heart sound present, S2 normal heart sound present, No gallops present (Cardio), No clicks present (Cardio), No murmurs present (Cardio) and No rub (Cardio) RATE: regular rate RHYTHM: regular rhythm HEART SOUNDS: S1 normal heart sound present and S2 normal heart sound present GI: COMMON NORMALS: Normal to inspection, nondistended, normoactive bowel sounds present, Soft to palpation, non-tender, No hepatosplenomegaly present and no masses PALPATION: Yes Soft to palpation and Yes No hepatosplenomegaly present : COMMON NORMALS: No no CVA tenderness (Right CVA tenderness with ecchymosis noted) BLADDER/KIDNEY EXAM: No no CVA tenderness (Right CVA tenderness with ecchymosis noted) Back/Pelvis: COMMON NORMALS: negative for no CVA tenderness (Right CVA ten derness with ecchymosis noted) Neuro: COMMON NORMALS: patient oriented x3 SENSORIUM/ORIENTATION: Yes alert MENINGEAL SIGNS: Yes no meningeal signs Course Vital Signs: Vital signs: Vital Signs Temperature 98.3 F 11/15/22 11:46 Pulse Rate 62 11/15/22 11:46 Respiratory Rate 16 11/15/22 11:46 Blood Pressure 159/93 11/15/22 11:46 Pulse Oximetry 93 11/15/22 11:46 Oxygen Delivery Me thod Room Air 11/15/22 11:46 MDM - Abdominal Pain Medical Decision Making Patient presents to the ER with complaints of falling last night and landing on her left ribs and flank area. Patient does have significant bruising to these areas and is very tender to touch. X-ray was obtained of the chest and right rib series showed no obvious fracture. Patient is currently on hydrocodone and gabapentin on home. Patient be discharged home to follow-up with her PCP Differential Diagnosis Likely abdominal pain; Unlikely acute appendicitis, calculus of kidney, constipation, diverticulitis, endometriosis, gastroenteritis, pancreatitis or small bowel obstruction Medical Records I reviewed the patient's medical records. Lab Data I reviewed the patient's lab results. Labs/Radiology: Radiology Impressions Ribs X-Ray 11/15/22 11:56 IMPRESSION: 1. Osseous alignment is maintained.No interval fracture or dislocation is appreciated. 2. There is some subpleural scarring and granulomatous appearance left lung base more so than right. No lobar type consolidation or cardiac decompensation is appreciated. Discharge Plan Discharge Patient Disposition: Home Clinical Impression: Fall Qualifiers: Encounter type: initial encounter Qualified Code(s): W19.XXXA - Unspecified fall, initial encounter Contusion of rib on right side Qualifiers: Encounter type: initial encounter Qualified Code(s): S20.211A - Contusion of right front wall of thorax, initial encounter Condition: Stable Prescriptions: No Action folic acid 1 mg tablet 1 mg PO DAILY metoprolol tartrate 25 mg tablet 25 mg PO BID sertraline 100 mg tablet 100 mg PO DAILY levothyroxine 25 mcg capsule 25 mcg PO DAILY acetaminophen [Tylenol Extra Strength] 500 mg tablet 500 mg PO BID PRN (Reason: fever or pain) PNV [id number] 90 mg iron- 1 mg-200 mg capsule 1 cap PO DAILY methocarbamol 500 mg tablet 500 mg PO TID PRN hydrocodone-acetaminophen 10-325 mg tablet 1 tab PO Q6H PRN ramipril [Altace] 2.5 mg capsule 2.5 mg PO BID acamprosate 333 mg tablet,delayed release (DR/EC) 666 mg PO TID Qty: 180 2RF Rx Instructions: administer with meals magnesium 200 mg tablet 400 mg PO DAILY gabapentin 300 mg capsule 300 mg PO TID naltrexone 50 mg tablet 50 mg PO DAILY Qty: 30 2RF albuterol sulfate 90 mcg/actuation HFA aerosol inhaler 2 inh INHALATION Q4H PRN (Reason: shortness of breath or wheezing) Qty: 18 0RF aspirin 325 mg Tablet 325 mg PO DAILY omeprazole 40 mg capsule,delayed release(DR/EC) 40 mg PO DAILY potassium chloride 20 mEq tablet,ER particles/crystals 20 meq PO DAILY Novolog FlexPen U-100 Insulin 100 unit/mL (3 mL) insulin pen 10 unit SUBCUT BID PRN (Reason: DIABETES) Rx Instructions: PER SLIDING SCALE Levemir FlexTouch U-100 Insuln 100 unit/mL (3 mL) insulin pen 10 unit SUBCUT BID Vitamin B-1 (mononitrate) 100 mg Tablet 100 mg PO DAILY Qty: 90 0RF Augmentin 500-125 mg tablet 1 tab PO BID Qty: 14 0RF Discharge Orders: Discharge ED (Routine); Ordered 11/15/22 Ordered By: Bobo Steele Referrals: Ana Maria Flores MD [Primary Care Provider] - 1 week Patient Instructions: Rib Contusion (ED), Opioid Safety, Pain Management Activity Restrictions/Additional Instructions: Your rib x-rays were negative, this makes a rib fracture unlikely but not impossible. Please follow-up with your PCP in approximately 7 to 10 days or rossy ner as needed. Continue taking your home medicines as prescribed. Coding Level of Care Code ED Stock Worker And Deliverer for Shaun Vu
[2022-11-15] MEDS: ketorolac 60 mg/2 mL INJ IM (12:57)
== END 2022-11-15 13:45 | disposition home or self-care (01) ==
PROVIDERS: Emergency Provider Emergency Medicine; PCP Internal Medicine
DX: S20.211A Contusion of right front wall of thorax, initial encounter (principal); Z79.82 Long term (current) use of aspirin; Z79.4 Long term (current) use of insulin; Z77.22 Contact with and (suspected) exposure to environmental tobacco smoke (acute) (chronic); I10 Essential (primary) hypertension; E11.9 Type 2 diabetes mellitus without complications; W06.XXXA Fall from bed, initial encounter
CPT/HCPCS: 71101; 96372; 99284; J1885

== ENCOUNTER 2023-03-12 13:50 | Outpatient (RCR) | payer MEDICARE, MEDICAID, SELFPAY | END 2023-04-03 23:59 | disposition home or self-care (01) | LOC: SPT 13:50 | PROVIDERS: PCP Internal Medicine; Visit Provider Internal Medicine | DX: M54.50 Low back pain, unspecified (principal); M62.81 Muscle weakness (generalized) | CPT/HCPCS: 97110; 97161 ==

== ENCOUNTER 2023-04-21 16:16 | Outpatient (RCR) | payer MEDICARE, MEDICAID, SELFPAY | END 2023-05-04 23:59 | disposition home or self-care (01) | LOC: SPT 16:16 | PROVIDERS: PCP Internal Medicine; Visit Provider Internal Medicine | DX: M54.17 Radiculopathy, lumbosacral region (principal) | CPT/HCPCS: 97110 ==

== ENCOUNTER 2023-05-29 10:27 | Outpatient (CLI) | payer MEDICARE, MEDICAID, SELFPAY ==
--- NOTE | 2023-05-29 10:34 | US_ITS ---
WS: [id number] Complete ABDOMINAL ULTRASOUND HISTORY: ELEVATED LIVER ENZYMES COMPARISON: CT 08/26/2019 and prior ultrasound 05/24/2022 Liver: 19.8 cm in length. Moderately enlarged liver with coarse echotexture from hepatic steatosis. S urface of the liver is slightly nodular suggesting there may be a component of cirrhosis. No mass. No bile duct dilatation. Portal Vein: Normal hepatopetal flow with monophasic waveform. Gallbladder: Normally distended gallbladder with no stones or wall thickening. CBD: 0.4 cm Pancreas: Not well visualized. Right kidney: 9.4 cm x 5.4 x 4.2 cm. Cortex:1.1 cm. Normal size and echogenicity. No hydronephrosis or mass. Left kidney: 10.2 cm x 4.4 cm x 4.7 cm. Cortex: 1.0 cm. Normal size kidney. There is a small extrarenal pelvis which was seen on the study from 08/26/2019. Spleen: 13.1 cm in length. Spleen is top normal size. Small granulomata. No mass. Aorta and IVC: Unremarkable abdominal aorta and IVC. Impression: 1. Moderate hepatomegaly and hepatic steatosis. There may be a component of cirrhosis. Mild nodulari ty along the surface of the liver. No mass. 2. Spleen measures top normal size at 13.1 cm. 3. Normal gallbladder. 4. No renal obstruction.
== END 2023-05-29 10:28 | disposition home or self-care (01) ==
LOC: RAD 10:28
PROVIDERS: PCP Internal Medicine; Visit Provider Internal Medicine
DX: R74.8 Abnormal levels of other serum enzymes (principal); K76.0 Fatty (change of) liver, not elsewhere classified; R16.0 Hepatomegaly, not elsewhere classified
CPT/HCPCS: 76700

== ENCOUNTER → 2023-06-11 10:17 | Outpatient (BNVA) | payer MEDICARE, OTHER, SELFPAY | PROVIDERS: PCP Internal Medicine; Visit Provider Nurse Practitioner Psychiatric/Mental Health | DX: Z79.899 Other long term (current) drug therapy (principal) | CPT/HCPCS: 80053; 80061; 80307; 83036 ==

== ENCOUNTER 2023-06-18 16:34 | Outpatient (CLI) | payer MEDICARE, MEDICAID, SELFPAY ==
--- NOTE | 2023-06-18 16:40 | MR_ITS ---
WS: [id number] EXAMINATION: MR hip LT wo con* [id number] ORDER DATE: 06/18/2023 4:50 PM COMPARISON: None. HISTORY: HIP PAIN CONTRAST: None. TECHNIQUE: Coronal STIR of the Pelvis. Coronal proton density, coronal T1, axial T2 fat sat, axial T1 , sagittal T2 fat sat, and sagittal T1 performed of the hip FINDINGS: Moderate to advanced degenerative arthritis both hips with joint space narrowing worse on the LEFT. S mall bilateral joint effusions. Diffuse edema within the LEFT femoral head extending into the neck wi th a tiny hairline stress fracture in the femoral head. No displaced fractures. Proximal femoral shaf t appears normal. No significant subchondral collapse. Mild soft tissue edema about the LEFT hip. Hyp ertrophic changes about the acetabulum and LEFT femoral neck. Diffuse edema in the RIGHT femoral head extending into the neck similar to the LEFT side. Advanced octaviano int space narrowing. Additional edema in the associated acetabulum. Small RIGHT joint effusion. Sugge stion of a tiny hairline stress fracture in the subchondral femoral head. No subchondral collapse. Normal bone marrow signal in the bony sacrum. IMPRESSION: 1. Advanced degenerative narrowing both hips. Small bilateral joint effusions. 2. Diffuse edema in the LEFT femoral head and neck with suggestion of a tiny hairline stress fractur e in the femoral head. No subchondral collapse. Findings can be seen with early avascular necrosis ve rsus reactive edema. 3. Similar-appearing diffuse edema in the RIGHT femoral head and neck with suggestion of a tiny armen rline stress fracture. Small joint effusion. Associated edema in the RIGHT acetabulum. Findings can b e seen with early avascular necrosis versus reactive edema. 4. Normal bone marrow signal in the bony sacrum. 5. No other acute findings.
== END 2023-06-18 16:35 | disposition home or self-care (01) ==
LOC: RAD 16:34
PROVIDERS: PCP Internal Medicine; Visit Provider Neurological Surgery
DX: M47.816 Spondylosis without myelopathy or radiculopathy, lumbar region (principal); M16.0 Bilateral primary osteoarthritis of hip; M25.451 Effusion, right hip; M25.452 Effusion, left hip
CPT/HCPCS: 73721

== ENCOUNTER 2023-07-15 06:00 | Outpatient (RCR) | payer MEDICARE, MEDICAID, SELFPAY | END 2023-08-03 23:59 | disposition home or self-care (01) | LOC: SPT 06:00 | PROVIDERS: PCP Internal Medicine; Visit Provider Internal Medicine | DX: G56.23 Lesion of ulnar nerve, bilateral upper limbs (principal) | CPT/HCPCS: 95911; 97162 ==

== ENCOUNTER 2023-08-04 06:00 | Outpatient (RCR) | payer MEDICARE, MEDICAID, SELFPAY | END 2023-08-12 23:59 | disposition home or self-care (01) | LOC: SPT 06:00 | PROVIDERS: PCP Internal Medicine; Visit Provider Internal Medicine | DX: G56.23 Lesion of ulnar nerve, bilateral upper limbs (principal) | CPT/HCPCS: 97113 ==

== ENCOUNTER 2023-08-27 13:57 | Outpatient (CLI) | payer MEDICARE, SELFPAY ==
--- NOTE | 2023-08-27 14:02 | MM_ITS ---
WS: [id number] BILATERAL 3D TOMOSYNTHESIS DIGITAL SCREENING MAMMOGRAPHY WITH CAD CLINICAL INFORMATION: SCREENING HISTORY: Screening mammogram. No current complaints. COMPARISON: 2022 TECHNIQUE: Bilateral CC and MLO views. FINDINGS: Scattered fibroglandular densities bilaterally. No suspicious focal mass, asymmetry, calcifications, or architectural distortion. No evidence of malignancy. Stable lobulated nodule LEFT breast with long -term stability dating back to 2015 IMPRESSION: MM/[place] [id number] BI-RADS: 2-Benign FOLLOW UP: 1 Year Follow-up Recommend return to annual screening mammography.
== END 2023-08-27 13:58 | disposition home or self-care (01) ==
LOC: RAD 13:58
PROVIDERS: PCP Internal Medicine; Visit Provider Internal Medicine
DX: Z12.31 Encounter for screening mammogram for malignant neoplasm of breast (principal)
CPT/HCPCS: 77063; 77067

== ENCOUNTER → 2023-09-18 11:12 | Outpatient (BNVA) | payer MEDICARE, MEDICAID, SELFPAY | PROVIDERS: PCP Internal Medicine; Visit Provider Student in an Organized Health Care Education/Training Program | DX: M16.11 Unilateral primary osteoarthritis, right hip (principal) | CPT/HCPCS: 73502; 99204 ==

== ENCOUNTER → 2023-10-13 13:57 | Outpatient (BNVA) | payer MEDICARE, MEDICAID, SELFPAY | PROVIDERS: PCP Internal Medicine; Visit Provider Podiatrist Foot & Ankle Surgery | DX: M20.11 Hallux valgus (acquired), right foot; E11.42 Type 2 diabetes mellitus with diabetic polyneuropathy; G62.9 Polyneuropathy, unspecified; Z79.4 Long term (current) use of insulin | CPT/HCPCS: 73630; 99203 ==

== ENCOUNTER → 2023-10-15 10:06 | Outpatient (BNVA) | payer MEDICARE, MEDICAID, SELFPAY | PROVIDERS: PCP Internal Medicine; Visit Provider Family Medicine | DX: Z01.818 Encounter for other preprocedural examination (principal) | CPT/HCPCS: 80053; 81003; 83036; 85025; 87086; 93005 ==

== ENCOUNTER 2023-10-17 10:04 | Outpatient (CLI) | payer MEDICARE, MEDICAID, SELFPAY ==
--- NOTE | 2023-10-17 10:00 | CT_ITS ---
WS: [id number] CT RIGHT hip for PK procedure HISTORY: M16.11 - Unilateral primary osteoarthritis, right hip Date: 10/17/2023 10:14 AM TECHNIQUE: Protocol for PK total hip replacement has been obtained. This includes axial imaging fro m the hip joint through the knee joint. DLP: 845 FINDINGS: Advanced arthritis RIGHT hip with subchondral cystic change and avascular necrosis. Sclerosis and sub chondral cystic change involving the acetabulum. Advanced degenerative arthritis LEFT hip with sclero sis and subchondral cystic change. Urine distended bladder. Sigmoid diverticulosis. CT/[place] [id number] IMPRESSION: CT imaging provided for PK robotic total hip replacement.
== END 2023-10-17 10:05 | disposition home or self-care (01) ==
LOC: RAD 10:04
PROVIDERS: PCP Internal Medicine; Visit Provider Student in an Organized Health Care Education/Training Program
DX: M16.0 Bilateral primary osteoarthritis of hip (principal); I96 Gangrene, not elsewhere classified; M85.68 Other cyst of bone, other site; M85.88 Other specified disorders of bone density and structure, other site; K57.30 Diverticulosis of large intestine without perforation or abscess without bleeding
CPT/HCPCS: 73700

== ENCOUNTER 2023-10-29 10:23 | Observation (INO) | payer MEDICARE, SELFPAY ==
[2023-10-29] VITALS (23 sets, daily range): BP systolic 115–167; BP diastolic 53–90; PULSE 50–70; RESP 16–20; TEMP 36.1–36.7; O2SAT 90–100; BMI 30.1
[2023-10-29] MEDS: acetaminophen 1,000 MG/100 ML PIGGYBACK 400 MG IV ×3 (06:26→18:18)
[2023-10-29] MEDS: lactated ringers 500 ML IV (06:26)
[2023-10-29] MEDS: ketorolac 30 mg/mL INJ IVP (06:26)
[2023-10-29 06:27] LABS: Glucose Point of Care 85 mg/dL (70-110)
[2023-10-29] MEDS: scopolamine 1.5 Patch 1 PATCH TRANSDERMA (06:27)
[2023-10-29] MEDS: sodium chloride 0.9% 1,000 ML 30 ML IV (06:27)
[2023-10-29 06:35] LABS: Basophils # 0.1 10^3/uL (0.0-0.1); Basophils % 1.1 %; Eosinophils # 0.1 10^3/uL (0.0-0.8); Eosinophils % 1.7 %; Hematocrit 31.6 % (36-47); Lymphocytes # 1.1 10^3/uL (0.8-4.8); Lymphocytes % 22.9 %; Mean Corpuscular HGB Conc 33.5 g/dL (30-55); Mean Corpuscular Hemoglobin 32.4 pg (27-33); Mean Corpuscular Volume 96.6 fl (85-98); Mean Platelet Volume 11.2 fL (7.4-10.4); Monocytes # 0.4 10^3/uL (0.2-0.9); Monocytes % 8.1 %; Neutrophils % 65.8 %; Nucleated Red Blood Cells % 0 %; Platelet Count 153 10^3/cmm (157-399); Red Blood Count 3.27 10^6/uL (3.85-5.65); Red Cell Distribution Width 13.2 % (12.1-15.1); White Blood Count 4.71 10^3/uL (3.29-11.43)
[2023-10-29 06:49] LABS: Blood Urea Nitrogen 20 mg/dL (6-20); Calcium 9.6 mg/dL (8.5-10.5); Carbon Dioxide 24 mmol/L (22-29); Chloride 97 mmol/L (98-107); Glomerular Filtration Rate 51.6 mL/min (90-130); Glucose 79 mg/dL (65-115); Osmolality Calculated 280 mOsm/kg (285-295); Sodium 134 mmol/L (136-145)
--- NOTE | 2023-10-29 06:51 | W.PM.OPSFHP ---
Same Day Surgery H&P Indication for Procedure/HPI DATE OF PROCEDURE: October 29, 2023 CHIEF COMPLAINT/INDICATIONFOR SURGICAL PROCEDURE: Right hip degenerative joint disease PREOP DIAGNOSIS: Right hip degenerative joint disease PLANNED PROCEDURE: Operation Date: 10/29/23 07:00 Proposed Procedures p Lincoln Robot Anterior Hip Arthroplasty(Right) - Grover Robbins DO Medications/Allergies* Home Medications Medication Instructions Recorded Confirmed Type metoprolol tartrate 25 mg tablet 25 mg PO BID 11/11/19 10/29/23 History aspirin 325 mg tablet 325 mg PO DAILY 05/03/22 10/28/23 History insulin aspart U-100 100 unit/mL 10 unit SUBCUT BID PRN DIABETES 05/03/22 10/28/23 History (3 mL) subcutaneous pen (Novolog FlexPen U-100 Insulin aspart) levothyroxine 25 mcg capsule 25 mcg PO DAILY 09/04/22 10/28/23 History ramipril 2.5 mg capsule (Altace) 2.5 mg PO BID 10/23/22 10/28/23 History acetaminophen 500 mg tablet 500 mg PO BID fever or pain 06/23/23 10/28/23 History (Tylenol Extra Strength) atorvastatin 40 mg tablet 40 mg PO DAILY 06/23/23 10/28/23 History famotidine 20 mg tablet (Acid 20 mg PO DAILY 06/23/23 10/28/23 History Advertising Project Manager (famotidine)) furosemide 20 mg tablet 20 mg PO DAILY 06/23/23 10/28/23 History potassium chloride 20 mEq oral 20 meq PO DAILY 06/23/23 10/28/23 History packet baclofen 10 mg tablet 10 mg PO BID@08,16 07/29/23 10/28/23 History dulaglutide 0.75 mg/0.5 mL 0.75 mg SUBCUT .weekly diabetes 08/19/23 10/28/23 History subcutaneous pen injector (Trulicity) hydrocodone 5 mg-acetaminophen 325 1 tab PO Q8H PRN Pain 10/15/23 10/29/23 History mg tablet insulin detemir U-100 100 unit/mL 50 unit SUBCUT BID 10/15/23 10/28/23 History (3 mL) subcutaneous pen (Levemir FlexTouch U-100 Insulin) empagliflozin 10 mg tablet 10 mg PO DAILY 10/28/23 10/28/23 History (Jardiance) Allergies/Adverse Reactions Allergy/AdvReac Type Severity Reaction Status Date / Time No Known Allergies Allergy Verified 10/29/23 06:04 Current Medications: Generic Name Dose Route Start Last Admin Trade Name Vaishnavi PRN Reason Stop Dose Admin Lactated Ringer's 500 mls @ 500 mls/hr 10/29/23 05:54 10/29/23 06:26 Lactated Ringers IV 10/29/23 06:53 500 mls/hr .Q1H ONE Administration Sodium Chloride 1,000 mls @ 30 mls/hr 10/29/23 06:00 10/29/23 06:27 Sodium Chloride 0.9% IV 10/30/23 05:59 30 mls/hr .Q24H TRAVON Administration Pertinent History/Comorbid Conditions* Medical History (Updated 10/28/23 @ 15:07 by Jami Mariscal [facility]) Alcohol dependence with alcohol-induced persisting dementia Alcohol dependence with alcohol-induced mood disorder Psychiatric care HTN (hypertension) Type 2 diabetes mellitus FREDY (obstructive sleep apnea) Hypercholesteremia Hypothyroidism (acquired) GERD (gastroesophageal reflux disease) Kidney stone Family History (Updated 11/11/19 @ 11:35 by Vi Rojo LPN) Diabetes CAD (coronary artery disease) Atrial fibrillation Hyperlipidemia Hypertension Social History Smoking and tobacco/nicotine status: former use of tobacco/nicotine Second hand smoke exposure: Yes Alcohol intake: current Alcohol intake frequency: holidays/special occasions only Substance/Drug Use: never Lives independently: Yes Household members: spouse Marital status: Current occupational status: employed Current occupational exposures/hazards: No Do you think of yourself as: Straight/Heterosexual Current gender identity: Female Pertinent Exam Findings alert, oriented x 3, operative site marked and procedure specific exam findings Please refer to detailed orthopedic examination on exam visit on 09/17/2023 seen below: Right hip examination examination of the lumbar spine shows full range of motion without discomfort.? There is minimal tenderness about the lumbar spine and paraspinal muscles.? Exam of the lower extremities reveals no gross deformities.? No significant pain with range of motion of the knees but guarding at the hip associated with when moving the right lower extremity. The right hip shows decreased range of motion more so on the right than the left. Severe pain with hip flexion internal rotation reproducible right at the groin. There is pain at the ends of internal and external rotation is very limited.? This reproduces pain near the groin.? There is no tenderness around the greater trochanter.? Patient in a wheelchair during examination Recommendations Surgery/Procedure today Other Plans: Plan proceed to the OR today for right total hip arthroplasty Lincoln robotic assisted through an anterior approach. She understands and Zetts procedure risk benefits complication alternatives of surgery through shared decision-making elects proceed with surgical intervention all questions answered at this time. Coding Level of Care Code Acute Code for g Fwguillermina
[2023-10-29] MEDS: ceFAZolin 2,000 MG in sodium chloride 0.9% (plus) 50 ML 100 MG IV ×3 (07:03→22:34)
--- NOTE | 2023-10-29 07:03 | ANES.PREANE2 ---
Pre-Anesthetic Assessment Height/Weight: Height 1.6 m Weight 77.111 kg Temp Pulse Resp BP Pulse Ox O2 Del Method 97.2 F L 64 17 127/64 95 Room Air 10/29/23 06:14 10/29/23 06:14 10/29/23 06:14 10/29/23 06:14 10/29/23 06:14 10/29/23 06:46 Preop Diagnosis: Right hip degenerative joint disease Operation Date: 10/29/23 07:00 Proposed Procedures p Lincoln Robot Anterior Hip Arthroplasty(Right) - Grover Robbins DO Familial anesthetic complications: None Was Beta Nino taken within 24 hours: N/A Was Clonidine taken within 24 hours: N/A Last intake: Intake Last Liquid Date 10/28/23 Last Liquid Time 23:45 Last Solid Date 10/28/23 Last Solid Time 23:45 Social No alcohol and No tobacco prior etoh Exam alert, oriented x 3, clear to auscultation bilaterally and regular rate & rhythm Airway Mallampati: Class II Dentition: full Pulmonary Chronic Obstructive Pulmonary Disease CV/HEM Congestive Heart Failure GI Gastroesophageal Reflux Disease Metabolic Diabetes Mellitus, Hyperlipidemia and Thyroid Disease Anesthetic Plan ASA status: 2 Anesthesia: General Risk of > 500 ml blood loss (7ml/kg in children): No Medications/Allergies Home Medications Medication Instructions Recorded Confirmed Last Taken Type albuterol sulfate 90 mcg/actuation 2 inh inhalation Q4H PRN shortness 07/14/19 10/28/23 Unknown Rx aerosol inhaler of breath or wheezing #18 grams metoprolol tartrate 25 mg tablet 25 mg PO BID 11/11/19 10/29/23 10/29/23 05:15 History aspirin 325 mg tablet 325 mg PO DAILY 05/03/22 10/28/23 10/24/23 History insulin aspart U-100 100 unit/mL 10 unit SUBCUT BID PRN DIABETES 05/03/22 10/28/23 Unknown History (3 mL) subcutaneous pen (Novolog FlexPen U-100 Insulin aspart) levothyroxine 25 mcg capsule 25 mcg PO DAILY 09/04/22 10/28/23 Unknown History ramipril 2.5 mg capsule (Altace) 2.5 mg PO BID 10/23/22 10/28/23 10/27/23 History acetaminophen 500 mg tablet 500 mg PO BID fever or pain 06/23/23 10/28/23 Unknown History (Tylenol Extra Strength) atorvastatin 40 mg tablet 40 mg PO DAILY 06/23/23 10/28/23 Unknown History famotidine 20 mg tablet (Acid 20 mg PO DAILY 06/23/23 10/28/23 Unknown History 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 Equipment Operator (famotidine)) furosemide 20 mg tablet 20 mg PO DAILY 06/23/23 10/28/23 Unknown History potassium chloride 20 mEq oral 20 meq PO DAILY 06/23/23 10/28/23 Unknown History packet baclofen 10 mg tablet 10 mg PO BID@08,16 07/29/23 10/28/23 Unknown History dulaglutide 0.75 mg/0.5 mL 0.75 mg SUBCUT .weekly diabetes 08/19/23 10/28/23 10/22/23 History subcutaneous pen injector (Trulicity) diabetic shoes with 3 inserts #1 ea 10/13/23 10/28/23 Unknown Rx hydrocodone 5 mg-acetaminophen 325 1 tab PO Q8H PRN Pain 10/15/23 10/29/23 10/28/23 History mg tablet insulin detemir U-100 100 unit/mL 50 unit SUBCUT BID 10/15/23 10/28/23 10/27/23 History (3 mL) subcutaneous pen (Levemir FlexTouch U-100 Insulin) empagliflozin 10 mg tablet 10 mg PO DAILY 10/28/23 10/28/23 10/24/23 History (Jardiance) quetiapine 25 mg tablet (Seroquel) 25 mg PO BEDTIME #30 tabs 10/28/23 10/28/23 Unknown Rx trazodone 50 mg tablet 50 mg PO .qhs PRN sleep #30 tabs 10/28/23 10/28/23 Unknown Rx Allergies Allergy/AdvReac Type Severity Reaction Status Date / Time No Known Allergies Allergy Verified 10/29/23 06:04 Current Medications Generic Name Dose Route Start Last Admin Trade Name Freq PRN Reason Stop Dose Admin Sodium Chloride 1,000 mls @ 30 mls/hr 10/29/23 06:00 10/29/23 06:27 Sodium Chloride 0.9% IV 10/30/23 05:59 30 mls/hr .Q24H TRAVON Administration PFSH Anesthesia Medical History Alcohol dependence with alcohol-induced persisting dementia Alcohol dependence with alcohol-induced mood disorder Psychiatric care HTN (hypertension) Type 2 diabetes mellitus FREDY (obstructive sleep apnea) Hypercholesteremia Hypothyroidism (acquired) GERD (gastroesophageal reflux disease) Kidney stone Family History Other Atrial fibrillation CAD (coronary artery disease) Diabetes Hyperlipidemia Hypertension Social History Smoking and tobacco/nicotine status: former use of tobacco/nicotine Second hand smoke exposure: Yes Alcohol intake: current Alcohol intake frequency: holidays/special occasions only Substance/Drug Use: never Lives independently: Yes Household members: spouse Marital status: Current occupational status: employed Current occupational exposures/hazards: No Do you think of yourself as: Straight/Heterosexual Current gender identity: Female Data Anesthesia 10/29/23 06:15 10/29/23 06:15 Short CBC 10/29/23 Range/Units 06:15 WBC 4.71 (3.29-11.43) 10^3/uL Hgb 10.60 L (11.27-16.99) g/dL Hct 31.6 L (36-47) % MCV 96.6 (85-98) fl Plt Count 153 L (157-399) 10^3/cmm Neut % (Auto) 65.8 % Neut # (Auto) 3.10 (1.8-7.7) 10^3/uL BMP 10/29/23 06:15 Sodium 134 L Potassium 4.0 Chloride 97 L Carbon Dioxide 24 BUN 20 Creatinine 1.1 H Glucose 79 Calcium 9.6 Cardiac Studies: Echocardiogram 05/03/22 Echocardiogram Ultrasound 11/24/19
[2023-10-29] MEDS: tranexamic acid 1,000 mg/10mL SDV 1000 MG IV (07:28)
[2023-10-29] MEDS: lidocaine-epi 1% 20 mL INJ INJECTION (07:51)
[2023-10-29] MEDS: vancomycin 1,000 MG SDV 1000 MG XX ×2 (07:52→10:00)
--- NOTE | 2023-10-29 10:04 | P.BOP_ITS ---
Date of Procedure: [10/29/2023] Surgeon: Grover Robbins DO Electronic Parts Designer(s): Phil Robbins PA-C Procedure(s) performed: Right total hip arthroplasty?Lincoln robotic assisted (anterior approach) Findings of the procedure(s): Patient found to have right hip severe degenerative joint disease underwent procedure as planned without issues or complications patient received spinal anesthesia. Patient will be admitted to the floor postoperatively. Estimated blood loss: 150 mL Specimen(s) removed: Femoral head and acetabular reamings removed Post-operative diagnosis: Right hip degenerative joint disease
--- NOTE | 2023-10-29 10:05 | PM.OP ---
Operative Report Date of procedure: October 29, 2023 Surgeon: Grover Robbins DO Superintendent Meters: Phil Robbins PA-C: PA was necessary for assistance in this case with leg positioning retraction and protection of neurovascular structures as well as assistance in implantation wound closure and dressing application. Procedure: Preoperative diagnosis: Right hip degenerative joint disease post-op diagnosis: Same Procedure done: Right total hip arthroplasty?Lincoln robotic assisted?anterior?approach Implants: Katarina Trident acetabular shell size 52 mm Mineral acetabular screw 30 mm Katarina acetabular screw 15 mm Accolade II 132 degree size 5? femur stem Trident 0 degree polyethylene 36 degree inner diameter 36 mm femoral head ceramic +0 mm Surgeon: Grover Robbins DO Anesthesia: Other (Spinal) Estimated blood loss: 150 mL IV fluids: 2000 mL Urine output?250 mL Complications: None Findings: See operative report narrative Condition: stable Disposition: floor Brief History: Patient is a 53-year-old female presented to my outpatient office setting findings consistent with [id number]-[id number] arthritis advanced degenerative joint disease of the right hip.? We talked about treatment options as far as nonoperative and operative intervention. Pt has failed conservative treatment.? Patient's right hip degenerative joint disease has been so severe she has been decreasing in ambulation given her pain and decreased range of motion.? we talked about treatment options at this point time pt understands the risk benefits complication alternatives surgical nonsurgical treatment options.? Patient understands the risk of surgery and agrees to proceed.? Patient has underwent a preoperative evaluation. Pt cleared for surical intervention. Pt understood and was agreeable to proceed with a right total hip arthroplasty consent was reviewed and signed with patient.?? All questions answered.? Patient will be admitted postoperatively. Procedure: Patient was seen evaluated in the preoperative holding area.? Consent was reviewed and signed with patient.? Correct operative extremity was then marked. ? All questions were answered at this time.? Once cleared by anesthesia used to brought back to the operative suite he then underwent anesthesia per the anesthesia department of a spinal anesthetic. The patient was administered tranexamic acid and preop antibiotics, and placed in the supine position. All bony prominences were properly padded, securely fixed to the table, and administered?general?anesthetic. The patient was subsequently transferred from the hospital bed to the [place] table. Bilateral lower extremities were placed in the traction boots. The pelvis was well approximated against the perineal post.? Final timeout performed.? Patient received appropriate preoperative antibiotics. Both hips were then prepped and draped in a normal orthopedic fashion.? Started with a small incision 2 fingerbreadths above the ASIS on the left iliac wing to place? pelvic arrays.? Small incision was made directly down to bone.? 3 pelvic pins were placed with excellent fixation.? The robotic array was secured to the nonoperative iliac wing using sterile technique. The extremity was then definitively draped in standard, sterile fashion.? The array was found to be visible by the robot. ?A standard??anterior?supine approach was performed to the?operative hip joint. The skin was incised down to the tensor fascia mansoor muscle and fascia. Fascia was split longitudinally in line with its fibers. The tensor fascia mansoor muscle was retracted laterally. The appropriate retractors were placed superiorly. Lateral circumflex vessels were identified and appropriately ligated. The hip capsule was then identified.? Appropriate retractors were placed superiorly and inferiorly along the capsule directly onto bone.??That was split longitudinally up to the acetabular rim in line with the femoral neck. The femoral capsule was found to be significantly hypertrophic, thickened, and significantly fibrotic. The capsule was then elevated both superiorly and inferiorly down to the lesser trochanter as well as up towards the greater trochanter.? Tag stitches were applied with 0 Vicryl into the capsule.? Femoral check point was?then inserted and confirmed on the lateral trochanter proximal femur.? .? A distal marker?of a sterile EKG lead was placed into the distal femur for measurement of leg lengths.? Preoperative leg lengths were registered and confirmed at this point. Next the appropriate-sized neck cut was then performed after being measured with robotic assistance. Femoral head was removed atraumatically this was found to have significant degenerative changes and deformity with significant osteophyte formation.? Femoral head was found to be severely degenerated and flattening with, eburnated bone. Acetabulum was also inspected and was found to have peripheral osteophytes as well as no evidence of cartilage consistent with [id number]-wb-jogx arthritis.? Appropriate retractors were then placed in the?anterior?and posterior wall.? The remaining labrum was then excised from the periphery of the acetabular rim. Pulvinar was excised.? At this point registration for the Lincoln was performed on the acetabular side and confirmed. Once confirmed, any osteophytes able to be were removed. We planned 40 degrees of lateral opening and 20 degrees of anteversion. At this point, we reamed and medialized to the inner wall of the acetabulum with a size?52?reamer for line to line fit.?The acetabulum was found to have good bleeding bone throughout.?? Reamer removed excellent bleeding bone circumferentially with sufficient?anterior?and posterior wall. ?The definitive acetabular cup 52 mm was inserted and impacted under?Lincoln guidance with the appropriate amount of anteversion and lateral opening. It was then secured with 2x 6.5 mm cancellous screws in appropriate safe zone position.? I subsquently drilled measured and place appropriate length acetabular screws which measured 30 mm and 15 mm.? These had excellent fixation final x-rays were taken of the acetabular work and showed a seated and well fixed acetabular cup with appropriate position acetabular screws.? ?Next a 36-mm X3 neutral liner was impacted into the?acetabular shell and secured. This had excellent fixation. Hip was then irrigated with copious amounts of irrigation. At this point, the remaining femoral releases were then performed allowing the adequate mobilization of the?right?femur.? Traction was confirmed to being off to the right lower extremity and the femur was then externally rotated, extended, and adducted giving adequate exposure of the proximal femur in the surgical wound. Box cut was then used to enter the intramedullary canal of the?femur. Canal finder was placed down the canal of the?operative femur. Appropriate-sized broaches from a size 0 up to a size 5 were impacted down the operative femoral canal with the appropriate amount of anteversion.? We utilized a 132 trial stem as this manage patient's natural anatomy of neck angle. A multiple trials were attempted and it was found?that?+0mm neck was found to be most appropriate for a soft tissue tensioning offset, stability and the leg lengths?that was confirmed with Lincoln. ?Stability was then assessed and excellent stability with patient external rotation of greater?than 90 degrees and traction with no evidence of hip instability.? Appropriate tension noted of the soft tissues. At this point, the hip was relocated.?Lincoln guidance was again used to confirm appropriate leg lengths.? I utilized C arm to evaluate for leg lengths as well I did slightly at the lengthen comparative to the contralateral extremity but this was the appropriate size for patient's stability and excellent soft tissue tensioning as well as this was mapped with her preoperative planning given she had been significantly shortened given her arthritis.? Operative hip was then re-dislocated using a bone hook. All trials were then removed from the?operative femur. Adequate exposure was then once again obtained. The trials were removed. The definitive 132degree Accolade II stem size 5 was impacted down the?femoral canal with the appropriate amount of anteversion. The appropriate sized head 36 mm ceramic +0 mm was impacted onto the trunnion, and the?operative?hip was then relocated with traction and internal rotation. Final measurements were obtained on Lincoln confirming leg lengths and offset.? Once again hip stability was assessed and found to have excellent stability and appropriate soft tissue tensioning.? Hip was irrigated with copious amounts of irrigation.? Vancomycin powder was placed within the wound bed for added infection prophylaxis.? The superior and inferior leaflets of the capsule were then closed with Ethibond suture.? Vicryl tag stitches were removed.? The superficial layer of the tensor fascia mansoor fascia was closed using 0 stratafix suture in a running fashion.? Subcutaneous tissues were closed with running 3-0 Stratafix, skin was closed with 4-0 monocryl.?Surgical Prineo glue and steri strips were?applied and covered with a yany dressing to the operative side.?The incision on the non-operative side for the robotic array was irrigated and closed with layered fashion of 0 Vicryl, 2-0 Vicryl and running Monocryl suture and surgical glue and covered with Silverlon. ?The patient was subsequently awoken per Anesthesia and transferred to PACU in satisfactory condition. ?Leg lengths and rotational profile were found to be appropriate. ? DISPOSITION: The patient will be admitted to the hospital for initiation of DVT prophylaxis, physical therapy, pain control. The patient is to weight bear as tolerated.?Anterior?hip precautions, postoperative antibiotics,?postoperative TXA and Eliquis?for DVT prophylaxis.? Patient will receive appropriate discharge instructions as well as pain medication postoperatively and will follow up in my office in 2 weeks.? Patient with work with PT/OT.? Internal medicine will be consulted for medical management
--- NOTE | 2023-10-29 10:30 | XR_ITS ---
WS: [id number] Exam: XR hip RT 2-3V wo/w pel* [id number] Date/Time of Exam: 10/29/2023 10:30 AM Reason For Exam: post op MILY Exam: XR hip RT 2-3V wo/w pel* [id number] Date/Time of Exam: 10/29/2023 10:30 AM Reason For Exam: post op MILY RIGHT total hip arthroplasty in satisfactory position. Postoperative changes in the soft tissues. XR/XR hip RT 2-3V wo/w pel* [id number] IMPRESSION: 1. RIGHT total hip replacement in satisfactory position.
--- NOTE | 2023-10-29 11:00 | ANE.PACU2 ---
Inpatient post-anesthesia follow up: Airway intact: Yes Vital signs: Temperature 97.7 F Pulse Rate 63 Respiratory Rate 16 Blood Pressure 130/76 Pulse Oximetry 97 Oxygen Delivery Me thod Nasal Cannula Oxygen Flow Rate 2 Fraction of Inspir ed Oxygen Hydration adequate: Yes Nausea and vomiting: No Pain level: 1 Mental status: Baseline
[2023-10-29] MEDS: HYDROmorphone 1 mg/mL INJ 1 mL 0.5 MG IVP ×2 (11:29→15:31)
[2023-10-29] MEDS: lactated ringers 1,000 ML 100 ML IV (11:31)
[2023-10-29 11:53] LABS: Alcohol Level < 10 mg/dL (0-10)
[2023-10-29 12:18] LABS: Glucose Point of Care 197 mg/dL (70-110)
[2023-10-29] MEDS: insulin lispro 100 unit/1 mL SUBCUT ×2 (12:40→18:31)
[2023-10-29] MEDS: chlorhexidine gluconate 0.12% Btl 473 mL 30 ML MUCOUS MEM ×3 (12:41→21:21)
[2023-10-29] MEDS: oxyCODONE 5 mg IR Tab/Cap PO ×3 (12:48→22:34)
[2023-10-29] MEDS: HYDROcodone-acetaminophen 5-325 mg Tablet 1 TAB PO (14:02)
[2023-10-29] MEDS: tranexamic acid 1,000 MG/100 ML PREMIX 600 MG IV (14:03)
[2023-10-29] MEDS: ondansetron 2 mg/ML SDV 2 mL 4 MG IVP (15:32)
[2023-10-29 16:13] LABS: Glucose Point of Care 193 mg/dL (70-110)
[2023-10-29] MEDS: calcium carb-vit d 600mg/400unit 1 Tablet 1 EACH PO (18:17)
[2023-10-29] MEDS: iron polysaccharide complex 150 mg Capsule PO (18:17)
[2023-10-29] MEDS: lisinopril 10 mg Tablet PO (18:17)
[2023-10-29] MEDS: metoprolol tartrate 25 mg Tablet PO (18:18)
[2023-10-29] MEDS: sennosides-docusate Tablet 2 TAB PO (18:18)
[2023-10-29] MEDS: mupirocin oint 22 gm 1 APPLIC NASAL (18:31)
[2023-10-29 20:23] LABS: Glucose Point of Care 293 mg/dL (70-110)
[2023-10-29] MEDS: insulin glargine 100 units/1 mL 40 UNIT SUBCUT (21:21)
[2023-10-30] VITALS (17 sets, daily range): BP systolic 102–171; BP diastolic 63–85; PULSE 52–76; RESP 16–20; TEMP 36.5–37.1; O2SAT 92–99
[2023-10-30] MEDS: HYDROmorphone 1 mg/mL INJ 1 mL 0.5 MG IVP (00:02)
[2023-10-30] MEDS: ondansetron 2 mg/ML SDV 2 mL 4 MG IVP ×2 (00:07→16:33)
[2023-10-30] MEDS: acetaminophen 1,000 MG/100 ML PIGGYBACK 400 MG IV (02:39)
[2023-10-30] MEDS: oxyCODONE 5 mg IR Tab/Cap PO ×2 (02:39→08:59)
[2023-10-30] MEDS: lactated ringers 1,000 ML 100 ML IV (02:40)
[2023-10-30] MEDS: ketorolac 30 mg/mL INJ 15 MG IVP (02:44)
[2023-10-30 05:59] LABS: Basophils % 0.3 %; Eosinophils % 0.3 %; Lymphocytes # 0.5 10^3/uL (0.8-4.8); Lymphocytes % 8.8 %; Mean Corpuscular HGB Conc 31.7 g/dL (30-55); Mean Corpuscular Hemoglobin 31.3 pg (27-33); Mean Corpuscular Volume 98.8 fl (85-98); Mean Platelet Volume 11.6 fL (7.4-10.4); Monocytes # 0.5 10^3/uL (0.2-0.9); Monocytes % 8.8 %; Neutrophils % 81.3 %; Nucleated Red Blood Cells % 0 %; Platelet Count 130 10^3/cmm (157-399); Red Blood Count 2.43 10^6/uL (3.85-5.65); Red Cell Distribution Width 13.1 % (12.1-15.1); White Blood Count 6.03 10^3/uL (3.29-11.43)
[2023-10-30 06:18] LABS: Anion Gap 13.6 (5-19); Blood Urea Nitrogen 19 mg/dL (6-20); Calcium 9.2 mg/dL (8.5-10.5); Carbon Dioxide 23 mmol/L (22-29); Chloride 100 mmol/L (98-107); Glomerular Filtration Rate 46.6 mL/min (90-130); Glucose 129 mg/dL (65-115); Osmolality Calculated 278 mOsm/kg (285-295); Potassium 4.6 mmol/L (3.5-5.1); Sodium 132 mmol/L (136-145)
[2023-10-30] MEDS: ceFAZolin 2,000 MG in sodium chloride 0.9% (plus) 50 ML 100 MG IV (06:25)
[2023-10-30 06:28] LABS: Glucose Point of Care 153 mg/dL (70-110)
[2023-10-30] MEDS: insulin lispro 100 unit/1 mL SUBCUT ×3 (08:56→18:01)
[2023-10-30] MEDS: calcium carb-vit d 600mg/400unit 1 Tablet 1 EACH PO ×2 (08:57→18:00)
[2023-10-30] MEDS: thiamine 100 mg Tablet PO (08:57)
[2023-10-30] MEDS: sennosides-docusate Tablet 2 TAB PO ×2 (08:57→18:00)
[2023-10-30] MEDS: multivitamin therapeutic Tablet 1 TAB PO (08:57)
[2023-10-30] MEDS: lisinopril 10 mg Tablet PO ×2 (08:58→18:00)
[2023-10-30] MEDS: folic acid 1 mg Tablet PO (08:58)
[2023-10-30] MEDS: levothyroxine 25 mcg Tablet PO (08:58)
[2023-10-30] MEDS: apixaban 5 mg Tablet 2.5 MG PO (08:58)
[2023-10-30] MEDS: metoprolol tartrate 25 mg Tablet PO ×2 (08:58→18:00)
[2023-10-30] MEDS: mupirocin oint 22 gm 1 APPLIC NASAL (08:59)
[2023-10-30] MEDS: iron polysaccharide complex 150 mg Capsule PO ×2 (08:59→18:00)
[2023-10-30] MEDS: chlorhexidine gluconate 0.12% Btl 473 mL 30 ML MUCOUS MEM ×2 (09:00→21:15)
[2023-10-30 09:18] LABS: Hematocrit 24.1 % (36-47)
--- NOTE | 2023-10-30 10:49 | P.CONIM_ITS ---
Providers/Reason For Consult 2 Consulting Physician/Specialty*: Hospitalist Reason for Consult*: Perioperative management Attending Physician: Grover Robbins DO Primary Care Provider: Ana Maria Flores MD History of Present Illness History of Present Illness Bharti Lawrecne is a 53 year old female status post right total hip arthroplasty, hospitalist team has been consulted for postoperative medical management. On my examination patient is stating that she is looking for rehab because she thinks she will get a lot of pain going home however she is noticing she has good social support, she lives with her on a form, sometimes was discharged to mom's home as well. Today patient is getting ready to work with physical therapy This morning her H&H was low I requested another 1 which came back low as well around 7.8 requested 1 unit PRBC. Is remained hemodynamic stable Eliquis has been put on hold. Patient also has mild BEENA and thrombocytopenia Patient endorsing passage of flatus, endorsing constipation as well Review of Systems 2 Const: Denies: fever(s) Eyes: Denies: change in vision ENMT: Denies: throat pain Card: Denies: chest pain Resp: Denies: dyspnea GI: Denies: abdominal pain : Denies: flank pain Medications/Allergies Home Medications Medication Instructions Recorded Confirmed Last Taken Type albuterol sulfate 90 mcg/actuation 2 inh inhalation Q4H PRN shortness 07/14/19 10/28/23 Unknown Rx aerosol inhaler of breath or wheezing #18 grams metoprolol tartrate 25 mg tablet 25 mg PO BID 11/11/19 10/29/23 10/29/23 05:15 History aspirin 325 mg tablet 325 mg PO DAILY 05/03/22 10/28/23 10/24/23 History insulin aspart U-100 100 unit/mL 10 unit SUBCUT BID PRN DIABETES 05/03/22 10/28/23 Unknown History (3 mL) subcutaneous pen (Novolog FlexPen U-100 Insulin aspart) levothyroxine 25 mcg capsule 25 mcg PO DAILY 09/04/22 10/28/23 Unknown History ramipril 2.5 mg capsule (Altace) 2.5 mg PO BID 10/23/22 10/28/23 10/27/23 History acetaminophen 500 mg tablet 500 mg PO BID fever or pain 06/23/23 10/28/23 Unknown History (Tylenol Extra Strength) atorvastatin 40 mg tablet 40 mg PO DAILY 06/23/23 10/28/23 Unknown History famotidine 20 mg tablet (Acid 20 mg PO DAILY 06/23/23 10/28/23 Unknown History Osteology Teacher (famotidine)) furosemide 20 mg tablet 20 mg PO DAILY 06/23/23 10/28/23 Unknown History baclofen 10 mg tablet 10 mg PO TID 07/29/23 10/30/23 Unknown History dulaglutide 0.75 mg/0.5 mL 0.75 mg SUBCUT .weekly diabetes 08/19/23 10/28/23 10/22/23 History subcutaneous pen injector (Trulicity) diabetic shoes with 3 inserts #1 ea 10/13/23 10/30/23 Unknown Rx hydrocodone 5 mg-acetaminophen 325 1 tab PO Q8H PRN Pain 10/15/23 10/29/23 10/28/23 History mg tablet insulin detemir U-100 100 unit/mL See Rx Instructions .Route .COMPLEX 10/15/23 10/30/23 10/27/23 History (3 mL) subcutaneous pen (Levemir FlexTouch U-100 Insulin) empagliflozin 10 mg tablet 10 mg PO DAILY 10/28/23 10/28/23 10/24/23 History (Jardiance) quetiapine 25 mg tablet (Seroquel) 25 mg PO BEDTIME #30 tabs 10/28/23 10/28/23 Unknown Rx trazodone 50 mg tablet 50 mg PO .qhs PRN sleep #30 tabs 10/28/23 10/28/23 Unknown Rx potassium chloride 10 mEq 10 meq PO BID 10/30/23 10/30/23 Unknown History tablet,extended release sertraline 100 mg tablet 100 mg PO DAILY 10/30/23 10/30/23 Unknown History Allergies Allergy/AdvReac Type Severity Reaction Status Date / Time No Known Allergies Allergy Verified 10/29/23 06:04 Current Medications Generic Name Dose Route Start Last Admin Trade Name Freq PRN Reason Stop Dose Admin Sodium Chloride 1,000 mls @ 30 mls/hr 10/29/23 06:00 10/29/23 08:38 Sodium Chloride 0.9% IV 10/30/23 05:59 Infused .Q24H TRAVON Infusion PFSH Acute 2 PFSH: Medical History Alcohol dependence with alcohol-induced persisting dementia Alcohol dependence with alcohol-induced mood disorder Psychiatric care HTN (hypertension) Type 2 diabetes mellitus FREDY (obstructive sleep apnea) Hypercholesteremia Hypothyroidism (acquired) GERD (gastroesophageal reflux disease) Kidney stone Family History Other Atrial fibrillation CAD (coronary artery disease) Diabetes Hyperlipidemia Hypertension Social History Smoking and tobacco/nicotine status: former use of tobacco/nicotine Second hand smoke exposure: Yes Alcohol intake: current Alcohol intake frequency: holidays/special occasions only Substance/Drug Use: never Lives independently: Yes Household members: spouse Marital status: Current occupational status: employed Current occupational exposures/hazards: No Do you think of yourself as: Straight/Heterosexual Current gender identity: Female Vitals/I&O/Wt Last Vital Signs Temp 97.5 F L 10/29/23 10:25 Pulse 68 10/29/23 10:35 Resp 20 H 10/29/23 10:35 BP 120/65 10/29/23 10:35 Pulse Ox 96 10/29/23 10:35 O2 Del Method Room Air 10/29/23 10:35 O2 Flow Rate 8 10/29/23 10:30 10/28/23 10/29/23 10/29/23 22:59 06:59 14:59 Intake Total 100 / 100 2700 / 2700 Output Total 400 / 400 Balance 100 / 100 2300 / 2300 Weight last 48 hrs Weight 77.111 kg Physical Exam 2 Narrative: Patient is euvolemic Complaining of pain in her right hip GCS 15 Nonfocal neuroexam Currently on 1 L Hemodynamically stable Pleasant and cooperative Abdomen soft with positive bowel sounds Urinary Catheter Management: Fernandes: Cath Placed During This Visit: yes Urinary Catheter Date of Insertion: 10/29/23 Urinary Catheter Time of Insertion: 07:20 Data 10/30/23 09:04 10/30/23 05:17 A&P Assessment and plan (1) Alcohol dependence with alcohol-induced mood disorder: (2) Type 2 diabetes mellitus: (3) COPD (chronic obstructive pulmonary disease): (4) Obstructive sleep apnea: (5) Emphysema lung: (6) Peripheral neuropathy: (7) S/P total right hip arthroplasty: (8) Postoperative anemia: (9) Thrombocytopenia: Plan Postop day 1 Postoperative anemia Requested 1 unit PRBC Status post right hip total arthroplasty No hemodynamic instability Eliquis on hold Put on heparin DVT prophylaxis regimen for now COPD without acute exacerbation currently on 1 L No active wheezing Continue DuoNeb treatment I have also requested CPAP machine for his FREDY history Complaining of hip pain Currently on opioids She takes hydrocodone at home which I will resume along IV morphine discontinued the rest Constipation: Added lactulose and senna S No signs of alcohol withdrawal Continue CIWA protocol Patient is wanting SNF placement, will follow-up after PT recommendations Consult Attestations 2 Medical Necessity Statement: Continue medical management Diagnoses Alcohol dependence with alcohol-induced mood disorder F10.24 Type 2 diabetes mellitus E11.9 COPD (chronic obstructive pulmonary disease) J44.9 Obstructive sleep apnea G47.33 Emphysema lung J43.9 Peripheral neuropathy G62.9 S/P total right hip arthroplasty Z96.641 Postoperative anemia D64.9 Thrombocytopenia D69.6
[2023-10-30 11:43] LABS: Glucose Point of Care 173 mg/dL (70-110)
[2023-10-30] MEDS: lactulose oral liq 20 gm/30 mL UDC 10 GM PO (11:43)
[2023-10-30] MEDS: HYDROcodone-acetaminophen 5-325 mg Tablet 1 TAB PO (11:44)
[2023-10-30] MEDS: heparin 5,000 unit/mL INJ 1 mL 5000 UNIT SUBCUT ×2 (11:44→21:12)
[2023-10-30] MEDS: morphine 4 mg/mL SDV 1 mL 2 MG IVP ×2 (13:18→23:36)
--- NOTE | 2023-10-30 13:47 | P.PN_ITS ---
Subjective 2 Subjective: Patient seen and examined this morning still having some issues with pain control. She will get up and work with therapy today talked with patient and family they are wanting to go to rehab facility she will have much help at home. She hemoglobin 7.8 this morning and internal medicine has patient getting 1 unit PRBC Eliquis on hold. Will likely need additional 1-2 more days of hospitalization Vitals/I&O/Wt Last Vital Signs Temp 97.7 F 10/30/23 12:45 Pulse 70 10/30/23 12:45 Resp 16 10/30/23 13:18 BP 113/64 10/30/23 12:45 Pulse Ox 97 10/30/23 12:45 O2 Del Method Room Air 10/30/23 12:45 O2 Flow Rate 2 10/29/23 20:00 10/29/23 10/30/23 10/30/23 22:59 06:59 14:59 Intake Total 1630 / 4790 150 / 4940 978.333 / 978.333 Output Total 1075 / 1475 600 / 2075 300 / 300 Balance 555 / 3315 -450 / 2865 678.333 / 678.333 Weight last 48 hrs Weight 196 lb 7 oz Weight 170 lb Weight 170 lb Physical Exam 2 Narrative: Dressings to the right hip as well as left iliac crest are clean dry and intact. Normal postoperative swelling. She is able to wiggle toes plantarflex and dorsiflex ankle. Compartments are soft compressible no excessive swelling or hematoma formation. Dressings clean dry and intact. Gustavo dressings on in place with good seal. She is able to perform a straight leg raise but does have some weakness and guarding with pain in the hip but is able to hold straight leg raise. Distal pulses palpable. Urinary Catheter Management: Fernandes: Cath Placed During This Visit: yes, but has since been removed by the nurse Reason for Continuing Indwelling Catheter: Required Immobilization for Trauma or Surgery or Anesthesia Urinary Catheter Date of Insertion: 10/29/23 Urinary Catheter Time of Insertion: 07:20 Date Urinary Catheter Removed: 10/30/23 Time Urinary Catheter Discontinued: 06:15 Data 10/31/23 05:03 10/31/23 05:03 Xray Ortho: Radiologist's impression: Ordering Provider/Ordering MD: Grover Robbins Date of Service: 10/29/23 Procedure(s): XR hip RT 2-3V wo/w pel* [id number] Accession Number(s): [id number] Report Number: [id number] WS: [id number] Exam: XR hip RT 2-3V wo/w pel* [id number] Date/Time of Exam: 10/29/2023 10:30 AM Reason For Exam: post op MILY Exam: XR hip RT 2-3V wo/w pel* [id number] Date/Time of Exam: 10/29/2023 10:30 AM Reason For Exam: post op MILY RIGHT total hip arthroplasty in satisfactory position. Postoperative changes in the soft tissues. XR/XR hip RT 2-3V wo/w pel* [id number] IMPRESSION: 1. RIGHT total hip replacement in satisfactory position. A&P Assessment and plan (1) S/P total right hip arthroplasty: Plan Postop day 1 right total hip arthroplasty Anterior hip precautions PT/OT Postoperative antibiotics Postoperative TXA AM labs reviewed hemoglobin down to 7.8 receiving 1 unit PRBC today Hold DVT prophylaxis at this time appreciate internal medicine's management Internal medicine on board for medical management Planning for discharge to rehab facility upon discharge will require further hospitalization. Postoperative monitoring. Weight-bear as tolerated to right lower extremity Attestations 2 Medical Necessity Statement*: Ongoing care status post right total hip arthroplasty requiring blood today. Coding Level of Care Code Acute Code for Chg Fwd Diagnoses S/P total right hip arthroplasty Z96.641 Time Spent (min) 20
[2023-10-30 16:16] LABS: Glucose Point of Care 158 mg/dL (70-110)
[2023-10-30] MEDS: HYDROcodone-acetaminophen 7.5-325 mg Tablet 1 TAB PO ×2 (16:33→21:12)
[2023-10-30 16:57] LABS: Hematocrit 25.5 % (36-47)
[2023-10-30] MEDS: TRAMadol 50 mg Tablet PO (17:59)
[2023-10-30 20:38] LABS: Glucose Point of Care 139 mg/dL (70-110)
--- NOTE | 2023-10-30 21:08 | PC.NURSE ---
Dr. Figueroa notified of blood sugar of 139 with 40 units of Lantus due. Ordered to give 20 units of Lantus instead of 40 tonight.
[2023-10-30] MEDS: insulin glargine 100 units/1 mL 20 UNIT SUBCUT (21:18)
[2023-10-31] VITALS: BP 153/80; PULSE 77; RESP 19; TEMP 36.8; O2SAT 93
[2023-10-31] MEDS: HYDROcodone-acetaminophen 7.5-325 mg Tablet 1 TAB PO ×4 (01:37→13:13)
[2023-10-31 04:00] VITALS: BP 176/80; PULSE 87; RESP 18; TEMP 36.7; O2SAT 92
--- NOTE | 2023-10-31 04:08 | PC.NURSE ---
Dr. Arreaga notified of patient's current blood pressure of 176/80.
[2023-10-31 05:26] LABS: Basophils % 0.8 %; Eosinophils # 0.1 10^3/uL (0.0-0.8); Eosinophils % 1.3 %; Hematocrit 25.1 % (36-47); Lymphocytes # 0.4 10^3/uL (0.8-4.8); Lymphocytes % 8.3 %; Mean Corpuscular HGB Conc 32.7 g/dL (30-55); Mean Corpuscular Hemoglobin 31.8 pg (27-33); Mean Corpuscular Volume 97.3 fl (85-98); Mean Platelet Volume 11.4 fL (7.4-10.4); Monocytes # 0.6 10^3/uL (0.2-0.9); Monocytes % 10.9 %; Neutrophils # 4.16 10^3/uL (1.8-7.7); Neutrophils % 78.1 %; Nucleated Red Blood Cells % 0 %; Platelet Count 109 10^3/cmm (157-399); Red Blood Count 2.58 10^6/uL (3.85-5.65); White Blood Count 5.32 10^3/uL (3.29-11.43)
[2023-10-31 05:52] LABS: Blood Urea Nitrogen 11 mg/dL (6-20); Calcium 9.8 mg/dL (8.5-10.5); Carbon Dioxide 22 mmol/L (22-29); Chloride 101 mmol/L (98-107); Glomerular Filtration Rate 74.5 mL/min (90-130); Glucose 136 mg/dL (65-115); Osmolality Calculated 285 mOsm/kg (285-295); Sodium 137 mmol/L (136-145)
[2023-10-31 06:22] LABS: Glucose Point of Care 172 mg/dL (70-110)
[2023-10-31 07:48] VITALS: BP 156/83; PULSE 82; RESP 16; TEMP 37; O2SAT 94
[2023-10-31 08:26] LABS: Glucose Point of Care 179 mg/dL (70-110)
[2023-10-31] MEDS: calcium carb-vit d 600mg/400unit 1 Tablet 1 EACH PO (08:48)
[2023-10-31] MEDS: multivitamin therapeutic Tablet 1 TAB PO (08:48)
[2023-10-31] MEDS: folic acid 1 mg Tablet PO (08:48)
[2023-10-31] MEDS: levothyroxine 25 mcg Tablet PO (08:48)
[2023-10-31] MEDS: thiamine 100 mg Tablet PO (08:48)
[2023-10-31] MEDS: TRAMadol 50 mg Tablet PO (08:48)
[2023-10-31] MEDS: mupirocin oint 22 gm 1 APPLIC NASAL (08:49)
[2023-10-31] MEDS: insulin lispro 100 unit/1 mL SUBCUT ×2 (08:49→13:13)
[2023-10-31] MEDS: iron polysaccharide complex 150 mg Capsule PO (08:49)
[2023-10-31] MEDS: chlorhexidine gluconate 0.12% Btl 473 mL 30 ML MUCOUS MEM (08:49)
[2023-10-31] MEDS: sennosides-docusate Tablet 2 TAB PO (08:49)
[2023-10-31] MEDS: lisinopril 10 mg Tablet PO (08:49)
[2023-10-31] MEDS: metoprolol tartrate 25 mg Tablet PO (08:49)
[2023-10-31] MEDS: ondansetron 2 mg/ML SDV 2 mL 4 MG IVP (09:01)
[2023-10-31] MEDS: lactulose oral liq 20 gm/30 mL UDC 30 GM PO (09:01)
--- NOTE | 2023-10-31 10:22 | PM.DCS ---
Discharge Providers Date of Admission: 10/29/23 10:23 Date of Discharge: October 31, 2023 Attending Provider at Admission: Grover Robbins DO Attending Provider at Discharge: Grover Robbins DO Primary Care Provider: Ana Maria Flores MD Diagnoses at Discharge Discharge Diagnosis (1) Alcohol dependence with alcohol-induced mood disorder: Status: Chronic (2) Type 2 diabetes mellitus: Status: Acute (3) COPD (chronic obstructive pulmonary disease): Status: Acute (4) Obstructive sleep apnea: Status: Acute (5) Emphysema lung: Status: Acute (6) Peripheral neuropathy: Status: Acute (7) S/P total right hip arthroplasty: Status: Acute (8) Postoperative anemia: Status: Acute (9) Thrombocytopenia: Status: Acute Reason for Visit Reason for Visit: M16.11 Physical Exam Urinary Catheter Management: Fernandes: Cath Placed During This Visit: yes, but has since been removed by the nurse Reason for Continuing Indwelling Catheter: Required Immobilization for Trauma or Surgery or Anesthesia Urinary Catheter Date of Insertion: 10/29/23 Urinary Catheter Time of Insertion: 07:20 Date Urinary Catheter Removed: 10/30/23 Time Urinary Catheter Discontinued: 06:15 Discharge Data Studies Completed and Pending Completed Studies During Hospitalization Category Date Time Status XR hip RT 2-3V wo/w pel* [id number] Routine Exams 10/29/23 10:30 Completed Pending at discharge Category Date Time Status Basic Metabolic Panel AM LABS Lab 11/01/23 04:00 Ordered Complete Blood Count w/Auto AM LABS Lab 11/01/23 04:00 Ordered Radiology Impressions Hip/Pelvis X-Ray 10/29/23 10:30 IMPRESSION: 1. RIGHT total hip replacement in satisfactory position. Laboratory Results WBC 5.32 10^3/uL (3.29-11.43) 10/31/23 05:03 RBC 2.58 10^6/uL (3.85-5.65) L 10/31/23 05:03 Hgb 8.20 g/dL (11.27-16.99) L 10/31/23 05:03 Hct 25.1 % (36-47) L 10/31/23 05:03 MCV 97.3 fl (85-98) 10/31/23 05:03 MCH 31.8 pg (27-33) 10/31/23 05:03 MCHC 32.7 g/dL (30-55) 10/31/23 05:03 RDW 16.0 % (12.1-15.1) H 10/31/23 05:03 Plt Count 109 10^3/cmm (157-399) L 10/31/23 05:03 MPV 11.4 fL (7.4-10.4) H 10/31/23 05:03 Neut % (Auto) 78.1 % 10/31/23 05:03 Lymph % (Auto) 8.3 % 10/31/23 05:03 [place] % (Auto) 10.9 % 10/31/23 05:03 Eos % (Auto) 1.3 % 10/31/23 05:03 Baso % (Auto) 0.8 % 10/31/23 05:03 Neut # (Auto) 4.16 10^3/uL (1.8-7.7) 10/31/23 05:03 Lymph # (Auto) 0.4 10^3/uL (0.8-4.8) L 10/31/23 05:03 [place] # (Auto) 0.6 10^3/uL (0.2-0.9) 10/31/23 05:03 Eos # (Auto) 0.1 10^3/uL (0.0-0.8) 10/31/23 05:03 Baso # (Auto) 0.0 10^3/uL (0.0-0.1) 10/31/23 05:03 Nucleated RBC % (auto) 0 % 10/31/23 05:03 Nucleated RBCs # 0.0 /100WBC 10/31/23 05:03 Sodium 137 mmol/L (136-145) 10/31/23 05:03 Potassium 4.0 mmol/L (3.5-5.1) 10/31/23 05:03 Chloride 101 mmol/L (98-107) 10/31/23 05:03 Carbon Dioxide 22 mmol/L (22-29) 10/31/23 05:03 Anion Gap 18.0 (5-19) 10/31/23 05:03 BUN 11 mg/dL (6-20) 10/31/23 05:03 Creatinine 0.8 mg/dL (0.5-0.9) 10/31/23 05:03 GFR Calculation 74.5 mL/min (90-130) L 10/31/23 05:03 Glucose 136 mg/dL (65-115) H 10/31/23 05:03 POC Glucose 172 mg/dL (70-110) H 10/31/23 06:19 Calculated Osmolality 285 mOsm/kg (285-295) 10/31/23 05:03 Calcium 9.8 mg/dL (8.5-10.5) 10/31/23 05:03 Ethyl Alcohol < 10 mg/dL (0-10) 10/29/23 06:15 Blood Type A Positive 10/29/23 06:15 Rho(D) Type Rh positive 10/29/23 06:15 Antibody Screen Negative 10/29/23 06:15 Crossmatch See Detail 10/29/23 06:15 Vitals Last Vital Signs Temp 98.6 F 10/31/23 07:48 Pulse 82 10/31/23 07:48 Resp 16 10/31/23 07:48 BP 156/83 10/31/23 07:48 Pulse Ox 94 10/31/23 07:48 O2 Del Method Room Air 10/31/23 07:48 O2 Flow Rate 2 10/29/23 20:00 Discharge Plan Discharge Patient Disposition: Home Condition: Stable Prescriptions: New hydrocodone-acetaminophen 10-325 mg tablet 1 tab PO Q8H PRN (Reason: pain) Qty: 14 0RF Eliquis 5 mg Tablet 2.5 mg PO BID Qty: 60 0RF sennosides-docusate sodium [Senna-S] 8.6-50 mg tablet 1 tab-cap PO DAILY Qty: 10 0RF Continued metoprolol tartrate 25 mg tablet 25 mg PO BID levothyroxine 25 mcg capsule 25 mcg PO DAILY acetaminophen [Tylenol Extra Strength] 500 mg tablet 500 mg PO BID ramipril [Altace] 2.5 mg capsule 2.5 mg PO BID hydrocodone-acetaminophen 5-325 mg tablet 1 tab PO Q8H PRN (Reason: Pain) (DME) diabetic shoes with 3 inserts See Rx Instructions .Route .MEDSUPPLY Qty: 1 0RF Rx Instructions: As directed to the shoe junior famotidine [Acid Hide Cooking Operator (famotidine)] 20 mg tablet 20 mg PO DAILY atorvastatin 40 mg tablet 40 mg PO DAILY baclofen 10 mg tablet 10 mg PO TID Valery 0.75 mg/0.5 mL pen injector 0.75 mg SUBCUT .weekly Rx Instructions: ON FRIDAY Jardiance 10 mg tablet 10 mg PO DAILY trazodone 50 mg tablet 50 mg PO .qhs PRN (Reason: sleep) Qty: 30 3RF Rx Instructions: Take one tablet at bedtime as needed for sleep quetiapine [Seroquel] 25 mg tablet 25 mg PO BEDTIME Qty: 30 3RF Rx Instructions: Take one tablet at bedtime albuterol sulfate 90 mcg/actuation HFA aerosol inhaler 2 inh INHALATION Q4H PRN (Reason: shortness of breath or wheezing) Qty: 18 0RF insulin aspart U-100 [Novolog FlexPen U-100 Insulin] 100 unit/mL (3 mL) insulin pen 10 unit SUBCUT BID PRN (Reason: DIABETES) Rx Instructions: PER SLIDING SCALE Levemir FlexTouch U100 Insulin 100 unit/mL (3 mL) insulin pen See Rx Instructions .ROUTE .COMPLEX Rx Instructions: INJECT UP TO 50 UNITS TWICE DAILY PER SLIDING SCALE. sertraline 100 mg tablet 100 mg PO DAILY Changed furosemide 20 mg tablet 20 mg PO DAILY PRN (Reason: Only with weight gain) Qty: 10 0RF potassium chloride 10 mEq tablet extended release 10 meq PO BEDTIME PRN (Reason: Only when you take Lasix) Qty: 10 0RF Discontinued aspirin 325 mg Tablet 325 mg PO DAILY Discharge Orders: Discharge Order (Routine); Ordered 10/31/23 Ordered By: Sandra Eldridge Other Ambulatory Orders: DME: Wolfgang (Order) Location: None Selected Ordered By: Sandra Eldridge Referrals: Ana Maria Flores MD [Primary Care Provider] - 4-7 days Grover Robbins DO [Physician] - 11/14/23 10:15 am Patient Instructions: Acute Wound Care (DC), Opioid Safety, Post Anesthesia Care Coding Level of Care Code Acute Code for Chg Fwd Diagnoses Alcohol dependence with alcohol-induced mood disorder F10.24 Type 2 diabetes mellitus E11.9 COPD (chronic obstructive pulmonary disease) J44.9 Obstructive sleep apnea G47.33 Emphysema lung J43.9 Peripheral neuropathy G62.9 S/P total right hip arthroplasty Z96.641 Postoperative anemia D64.9 Thrombocytopenia D69.6
[2023-10-31 11:36] LABS: Glucose Point of Care 145 mg/dL (70-110)
[2023-10-31 11:42] VITALS: BP 150/87; PULSE 75; RESP 17; TEMP 37; O2SAT 91
[2023-10-31 12:14] LABS: SARS Covid-2 Antigen negative (Negative)
--- NOTE | 2023-10-31 12:36 | XR_ITS ---
WS: [email or web address] Exam: XR hip RT 1V wo/w pel 52762 Date/Time of Exam: 10/31/2023 12:39 PM Reason For Exam: post fall Comparison 10/29/2023. Total RIGHT hip arthroplasty is in place in satisfactory position. No sign of fracture or loosening. Normal soft tissues. XR/XR hip RT 1V wo/w pel [id number] IMPRESSION: 1. Intact RIGHT total hip arthroplasty.
--- NOTE | 2023-10-31 12:45 | PC.NURSE ---
Called report to [facility] and spoke to SHAINA. Updated her about bowel movement.
--- NOTE | 2023-10-31 13:10 | P.DS_ITS ---
Discharge Providers Date of Admission: 10/29/23 10:23 Date of Discharge: October 31, 2023 Attending Provider at Admission: Grover Robbins DO Attending Provider at Discharge: Grover Robbins DO Consults: Internal medicine?Dr. Eldridge Primary Care Provider: Ana Maria Flores MD Diagnoses at Discharge Discharge Diagnosis (1) Alcohol dependence with alcohol-induced mood disorder: Status: Inactive (2) Type 2 diabetes mellitus: Status: Inactive (3) COPD (chronic obstructive pulmonary disease): Status: Inactive (4) Obstructive sleep apnea: Status: Inactive (5) Emphysema lung: Status: Inactive (6) Peripheral neuropathy: Status: Inactive (7) S/P total right hip arthroplasty: Status: Inactive (8) Postoperative anemia: Status: Inactive (9) Thrombocytopenia: Status: Inactive Reason for Visit Reason for Visit: M16.11 Brief History: Status post right total hip arthroplasty Hospital Course Hospital Course Patient was brought to the hospital through the preoperative holding area with plan for right total hip arthroplasty for right hip dengerative joint disease. Once cleared by anesthesia for surgery subsequently was taken back to the operative suite underwent anesthesia per the anesthesia department and then underwent right total hip arthroplasty with [place] robotic assistance anterior approach without any complications. Patient was then subsequently taken back to PACU in stable condition recovering well. Once recovered, patient was then subsequently admitted to the floor postoperatively. Internal medicine was consulted for medical management assistance. Patient weightbearing as tolerated to the right lower extremity, anterior hip precautions. PT/OT. Pain control. DVT prophylaxis. Postoperative antibiotics and TXA. dressing was change as needed. Internal medicine was on board and appreciate their medical management and assistance. Patient had a drop in her hemoglobin postoperative day 1 requiring 1 unit of PRBC. Labs were monitored on postoperative day 2 hemoglobin was stable at 8.2. Dressings were clean dry and intact. Patient while trying to ambulate in the room did have a subtle slip and landed onto her left hip we did emelina-ray the right hip and it was stable with no evidence of hardware failure loosening or periprosthetic fracture or new fracture to the other hip. Pt was determined on postoperative day [2] the patient was stable for discharge from orthopedic as well as internal medicine standpoint. Patient's labs were monitored daily. Patient will receive appropriate pain medication as well as DVT prophylaxis postoperatively. Appropriate discharge instructions as well. Patient was then discharged in stable condition. Patient will discharge to SNF. Pt will follow-up with Orthopedics in the office in 2 weeks. Patient understands and agrees with current plan. All questions answered. Understands there is any issues or concerns and contact the office. Physical Exam Narrative: Dressings to the right hip as well as left iliac crest are clean dry and intact. Normal postoperative swelling. She is able to wiggle toes plantarflex and do rsiflex ankle. Compartments are soft compressible no excessive swelling or hematoma formation. Dressings clean dry and intact. Yany dressings on in place with good seal. She is able to perform a straight leg raise but does have some weakness and guarding with pain in the hip but is able to hold straight leg raise. Distal pulses palpable. Urinary Catheter Management: Fernandes: Cath Placed During This Visit: yes, but has since been removed by the nurse Reason for Continuing Indwelling Catheter: Required Immobilization for Trauma or Surgery or Anesthesia Urinary Catheter Date of Insertion: 10/29/23 Urinary Catheter Time of Insertion: 07:20 Date Urinary Catheter Removed: 10/30/23 Time Urinary Catheter Discontinued: 06:15 Discharge Data Studies Completed and Pending Completed Studies During Hospitalization Category Date Time Status XR hip RT 1V wo/[place] [id number] Stat Exams 10/31/23 12:36 Completed XR hip RT 2-3V wo/w pel* [id number] Routine Exams 10/29/23 10:30 Completed Pending at discharge Category Date Time Status Basic Metabolic Panel AM LABS Lab 11/01/23 04:00 Ordered Complete Blood Count w/Auto AM LABS Lab 11/01/23 04:00 Ordered Radiology Impressions Hip/Pelvis X-Ray 10/29/23 10:30 IMPRESSION: 1. RIGHT total hip replacement in satisfactory position. Hip X-Ray 10/31/23 12:36 IMPRESSION: 1. Intact RIGHT total hip arthroplasty. Laboratory Results WBC 5.32 10^3/uL (3.29-11.43) 10/31/23 05:03 RBC 2.58 10^6/uL (3.85-5.65) L 10/31/23 05:03 Hgb 8.20 g/dL (11.27-16.99) L 10/31/23 05:03 Hct 25.1 % (36-47) L 10/31/23 05:03 MCV 97.3 fl (85-98) 10/31/23 05:03 MCH 31.8 pg (27-33) 10/31/23 05:03 MCHC 32.7 g/dL (30-55) 10/31/23 05:03 RDW 16.0 % (12.1-15.1) H 10/31/23 05:03 Plt Count 109 10^3/cmm (157-399) L 10/31/23 05:03 MPV 11.4 fL (7.4-10.4) H 10/31/23 05:03 Neut % (Auto) 78.1 % 10/31/23 05:03 Lymph % (Auto) 8.3 % 10/31/23 05:03 [place] % (Auto) 10.9 % 10/31/23 05:03 Eos % (Auto) 1.3 % 10/31/23 05:03 Baso % (Auto) 0.8 % 10/31/23 05:03 Neut # (Auto) 4.16 10^3/uL (1.8-7.7) 10/31/23 05:03 Lymph # (Auto) 0.4 10^3/uL (0.8-4.8) L 10/31/23 05:03 [place] # (Auto) 0.6 10^3/uL (0.2-0.9) 10/31/23 05:03 Eos # (Auto) 0.1 10^3/uL (0.0-0.8) 10/31/23 05:03 Baso # (Auto) 0.0 10^3/uL (0.0-0.1) 10/31/23 05:03 Nucleated RBC % (auto) 0 % 10/31/23 05:03 Nucleated RBCs # 0.0 /100WBC 10/31/23 05:03 Sodium 137 mmol/L (136-145) 10/31/23 05:03 Potassium 4.0 mmol/L (3.5-5.1) 10/31/23 05:03 Chloride 101 mmol/L (98-107) 10/31/23 05:03 Carbon Dioxide 22 mmol/L (22-29) 10/31/23 05:03 Anion Gap 18.0 (5-19) 10/31/23 05:03 BUN 11 mg/dL (6-20) 10/31/23 05:03 Creatinine 0.8 mg/dL (0.5-0.9) 10/31/23 05:03 GFR Calculation 74.5 mL/min (90-130) L 10/31/23 05:03 Glucose 136 mg/dL (65-115) H 10/31/23 05:03 POC Glucose 145 mg/dL (70-110) H 10/31/23 11:18 Calculated Osmolality 285 mOsm/kg (285-295) 10/31/23 05:03 Calcium 9.8 mg/dL (8.5-10.5) 10/31/23 05:03 Ethyl Alcohol < 10 mg/dL (0-10) 10/29/23 06:15 SARS-CoV-2 Ag (Rapid) negative (Negative) 10/31/23 11:36 Blood Type A Positive 10/29/23 06:15 Rho(D) Type Rh positive 10/29/23 06:15 Antibody Screen Negative 10/29/23 06:15 Crossmatch See Detail 10/29/23 06:15 Imaging Xray Ortho: Radiologist's impression: Ordering Provider/Ordering MD: Grover Robbins Date of Service: 10/29/23 Procedure(s): XR hip RT 2-3V wo/w pel* [id number] Accession Number(s): [id number] Report Number: [id number] WS: [email or web address] Exam: XR hip RT 2-3V wo/w pel* [id number] Date/Time of Exam: 10/29/2023 10:30 AM Reason For Exam: post op MILY Exam: XR hip RT 2-3V wo/w pel* [id number] Date/Time of Exam: 10/29/2023 10:30 AM Reason For Exam: post op MILY RIGHT total hip arthroplasty in satisfactory position. Postoperative changes in the soft tissues. XR/XR hip RT 2-3V wo/w pel* 05110 IMPRESSION: 1. RIGHT total hip replacement in satisfactory position. [id number] [address] XRay Report Signed Patient: Bharti Lawrence Unit #: [id number] : 1970 Age/Sex: 53 / F ADM Date: 10/29/23 Loc: [facility] Room/Bed: [address]: Grover Robbins DO Ordering Provider/Ordering MD: Grover Robbins Date of Service: 10/31/23 Procedure(s): XR hip RT 1V wo/w pel [id number] Accession Number(s): [id number] Report Number: [id number] WS: [email or web address] Exam: XR hip RT 1V wo/w pel [id number] Date/Time of Exam: 10/31/2023 12:39 PM Reason For Exam: post fall Comparison 10/29/2023. Total RIGHT hip arthroplasty is in place in satisfactory position. No sign of fracture or loosening. Normal soft tissues. XR/XR hip RT 1V wo/w pel 27230 IMPRESSION: 1. Intact RIGHT total hip arthroplasty. Vitals Last Vital Signs Temp 98.6 F 10/31/23 11:42 Pulse 75 10/31/23 11:42 Resp 17 10/31/23 11:42 BP 150/87 10/31/23 11:42 Pulse Ox 91 10/31/23 11:42 O2 Del Method Room Air 10/31/23 11:42 O2 Flow Rate 2 10/29/23 20:00 Discharge Plan Discharge Patient Disposition: Xfer SNF Condition: Stable Prescriptions: New Senna-S 8.6-50 mg tablet 1 tab-cap PO DAILY Qty: 10 0RF aspirin 325 mg capsule 325 mg PO BID 35 Days Qty: 70 0RF Continued metoprolol tartrate 25 mg tablet 25 mg PO BID levothyroxine 25 mcg capsule 25 mcg PO DAILY acetaminophen [Tylenol Extra Strength] 500 mg tablet 500 mg PO BID ramipril [Altace] 2.5 mg capsule 2.5 mg PO BID (DME) diabetic shoes with 3 inserts See Rx Instructions .Route .MEDSUPPLY Qty: 1 0RF Rx Instructions: As directed to the shoe junior famotidine [Acid Window Shade Cutter (famotidine)] 20 mg tablet 20 mg PO DAILY atorvastatin 40 mg tablet 40 mg PO DAILY baclofen 10 mg tablet 10 mg PO TID Trul[place] 0.75 mg/0.5 mL pen injector 0.75 mg SUBCUT .weekly Rx Instructions: ON FRIDAY Jardiance 10 mg tablet 10 mg PO DAILY trazodone 50 mg tablet 50 mg PO .qhs PRN (Reason: sleep) Qty: 30 3RF Rx Instructions: Take one tablet at bedtime as needed for sleep quetiapine [Seroquel] 25 mg tablet 25 mg PO BEDTIME Qty: 30 3RF Rx Instructions: Take one tablet at bedtime albuterol sulfate 90 mcg/actuation HFA aerosol inhaler 2 inh INHALATION Q4H PRN (Reason: shortness of breath or wheezing) Qty: 18 0RF insulin aspart U-100 [Novolog FlexPen U-100 Insulin] 100 unit/mL (3 mL) insulin pen 10 unit SUBCUT BID PRN (Reason: DIABETES) Rx Instructions: PER SLIDING SCALE Levemir FlexTouch U100 Insulin 100 unit/mL (3 mL) insulin pen See Rx Instructions .ROUTE .COMPLEX Rx Instructions: INJECT UP TO 50 UNITS TWICE DAILY PER SLIDING SCALE. sertraline 100 mg tablet 100 mg PO DAILY Changed potassium chloride 10 mEq tablet extended release 10 meq PO BEDTIME PRN (Reason: Only when you take Lasix) Qty: 10 0RF furosemide 20 mg tablet 20 mg PO DAILY PRN (Reason: Only with weight gain) Qty: 10 0RF Discontinued hydrocodone-acetaminophen 5-325 mg tablet 1 tab PO Q8H PRN (Reason: Pain) aspirin 325 mg Tablet 325 mg PO DAILY No Action amoxicillin 500 mg capsule 500 mg PO ONCE Qty: 24 0RF Rx Instructions: take 4 tabs by mouth 1 hour prior to dental procedure oxycodone 5 mg tablet 5 mg PO Q6H PRN (Reason: pain) 7 Days Qty: 28 0RF Discharge Orders: Discharge Order (Routine); Ordered 10/31/23 Ordered By: Sandra Eldridge Other Ambulatory Orders: DME: Walker (Order) Location: None Selected Ordered By: Sandra Eldridge Referrals: [facility] [Outside] Ana Maria Flores MD [Primary Care Provider] - Grover Robbins DO [Physician] - 11/14/23 10:15 am Discharge Diet: Diabetic Discharge Activity: Limit activity as instructed, Use walker/crutches as instructed and As per PT/OT instructions Patient Instructions: Acute Wound Care (DC), Post Anesthesia Care Activity Restrictions/Additional Instructions: Anterior MILY Postop Orthopedic discharge instructions: Patient should keep dressings clean dry and intact Okay to shower over dressings if they do become wet these should be removed and new dressings applied Keep incisions clean dry and intact, leave yany bandage dressings on in place for 7 days after that the battery will okay to remove dressing and place a new Silver[place] bandage dressing on this or leave the dressing on and disconnect the battery pack and throw this away. Weight-bear as tolerated to operative lower extremity Anterior hip precautions as instructed by physical therapy Ice as needed for pain and swelling Take pain medication as prescribed Take antinausea medication as needed Supplement with Citracal vitamin D for bone health and healing Take Colace as needed for constipation Take blood thinner as prescribed (aspirin 325 twice daily) Follow-up in the orthopedic office in 2 weeks Contact the office for any questions or concerns Discharge Attestations Time Spent in Discharge Care*: greater than 30 min Quality Metrics Clinical Quality Measures [ No reported AMI, CVA or VTE this stay] Coding Level of Care Code Acute Code for Chg Fwd Diagnoses Alcohol dependence with alcohol-induced mood disorder F10.24 Type 2 diabetes mellitus E11.9 COPD (chronic obstructive pulmonary disease) J44.9 Obstructive sleep apnea G47.33 Emphysema lung J43.9 Peripheral neuropathy G62.9 S/P total right hip arthroplasty Z96.641 Postoperative anemia D64.9 Thrombocytopenia D69.6 Time Spent (min) 35
[2023-10-31] MEDS: heparin 5,000 unit/mL INJ 1 mL 5000 UNIT SUBCUT (13:13)
[2023-10-31 13:49] VITALS: BP 150/87; PULSE 75; RESP 17; TEMP 37; O2SAT 91
== END 2023-10-31 13:50 | disposition skilled nursing facility (03) ==
LOC: MEDSURG 10:24
PROVIDERS: Internal Medicine; Physician Assistant; Admitting Provider Student in an Organized Health Care Education/Training Program; PCP Internal Medicine; Visit Provider Student in an Organized Health Care Education/Training Program
PROC: 8E0Y0CZ Robotic Assisted Procedure of Lower Extremity, Open Approach (ICD-10-PCS; CPT 27130; principal; 2023-10-29 07:00)
DX: M16.11 Unilateral primary osteoarthritis, right hip (principal); E11.9 Type 2 diabetes mellitus without complications; Z79.4 Long term (current) use of insulin; E03.9 Hypothyroidism, unspecified; K21.9 Gastro-esophageal reflux disease without esophagitis; Z87.891 Personal history of nicotine dependence; I11.0 Hypertensive heart disease with heart failure; I50.9 Heart failure, unspecified; Z79.82 Long term (current) use of aspirin; G47.33 Obstructive sleep apnea (adult) (pediatric)
CPT/HCPCS: 20985; 27130; 36415; 36416; 36430; 51702; 73501; 73502; 76000; 80048; 80307; 82962; 85014; 85018; 85025; 86850; 86900; 86920; 87426; 96372; 97110; 97116; 97162; 97166; 97530; 97535; C1713; C1776; G0378; J0131; J0690; J1100; J1170; J1644; J1815; J1885; J2250; J2270; J2405; J2704; J3010; J3370; J3411; J7030; J7120; P9040

== ENCOUNTER 2023-11-11 16:58 | Emergency (ER) | payer MEDICARE, MEDICAID, SELFPAY ==
[2023-11-11 16:59] VITALS: PULSE 73; RESP 18; TEMP 36.9; O2SAT 100
--- NOTE | 2023-11-11 17:02 | XRR_ITS ---
PROCEDURE INFORMATION: Exam: XR Right Hip Exam date and time: 11/11/2023 5:13 PM Age: 53 years old Clinical indication: Hip pain; Right hip; Prior surgery; Surgery date: <1 month; Surgery type: RT hip; Additional info: Injury TECHNIQUE: Imaging protocol: Radiologic exam of the right hip. Views: 1 view hip with pelvis when performed. COMPARISON: CR XR hip RT 1V wo/w pel [id number] 10/31/2023 12:46 PM FINDINGS: Bones/joints: There is a stable intact right total hip prosthesis. [place] bone is normal. Soft tissues: Unremarkable. XR/XR hip RT 2-3V wo/w pel* [id number] IMPRESSION: Normal follow-up right total hip arthroplasty.
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
[2023-11-11 17:09] VITALS: BP 143/75
[2023-11-11] MEDS: ondansetron 2 mg/ML SDV 2 mL 4 MG IM (17:31)
[2023-11-11] MEDS: morphine 4 mg/mL SDV 1 mL IM (17:31)
== END 2023-11-11 18:47 | disposition home or self-care (01) ==
PROVIDERS: Emergency Provider Emergency Medicine; PCP Internal Medicine
DX: M25.551 Pain in right hip (principal); Z96.641 Presence of right artificial hip joint; J44.9 Chronic obstructive pulmonary disease, unspecified; I10 Essential (primary) hypertension; E11.9 Type 2 diabetes mellitus without complications; Z87.891 Personal history of nicotine dependence; Z79.82 Long term (current) use of aspirin; Z79.85 Long-term (current) use of injectable non-insulin antidiabetic drugs; Z79.4 Long term (current) use of insulin
CPT/HCPCS: 73502; 96372; 99284; J2270; J2405

== ENCOUNTER → 2023-11-14 10:11 | Outpatient (BNVA) | payer MEDICARE, MEDICAID, SELFPAY | PROVIDERS: PCP Internal Medicine; Visit Provider Physician Assistant | DX: Z96.641 Presence of right artificial hip joint | CPT/HCPCS: 73502; 99024 ==

== ENCOUNTER 2023-11-18 09:18 | Emergency (ER) | payer MEDICARE, SELFPAY ==
[2023-11-18 09:39] VITALS: BP 106/70; PULSE 100; RESP 16; O2SAT 92
--- NOTE | 2023-11-18 12:00 | W.ED.EXTPRO ---
HPI - Extremity Problem General: Chief complaint: Extremity Injury, Lower Stated complaint: Left hip pain Time Seen by Provider: 11/18/23 09:39 [facility] ED PFSH: Medical History Thrombocytopenia Postoperative anemia Peripheral neuropathy COPD (chronic obstructive pulmonary disease) Obstructive sleep apnea Emphysema lung Alcohol dependence with alcohol-induced persisting dementia Alcohol dependence with alcohol-induced mood disorder Psychiatric care HTN (hypertension) Type 2 diabetes mellitus FREDY (obstructive sleep apnea) Hypercholesteremia Hypothyroidism (acquired) GERD (gastroesophageal reflux disease) Kidney stone Surgical History S/P total right hip arthroplasty Family History Other Atrial fibrillation CAD (coronary artery disease) Diabetes Hyperlipidemia Hypertension Social History Smoking and tobacco/nicotine status: former use of tobacco/nicotine Second hand smoke exposure: Yes Alcohol intake: current Alcohol intake frequency: holidays/special occasions only Substance/Drug Use: never Lives independently: Yes Household members: spouse Marital status: Current occupational status: employed Current occupational exposures/hazards: No Do you think of yourself as: Straight/Heterosexual Current gender identity: Female Course Vital Signs: Vital signs: Vital Signs Pulse Rate 100 11/18/23 09:39 Respiratory Rate 16 11/18/23 09:39 Blood Pressure 106/70 11/18/23 09:39 Pulse Oximetry 92 11/18/23 09:39 Oxygen Delivery Me thod Room Air 11/18/23 09:39 Discharge Plan Discharge Condition: Stable Prescriptions: No Action metoprolol tartrate 25 mg tablet 25 mg PO BID levothyroxine 25 mcg capsule 25 mcg PO DAILY acetaminophen [Tylenol Extra Strength] 500 mg tablet 500 mg PO BID ramipril [Altace] 2.5 mg capsule 2.5 mg PO BID (DME) diabetic shoes with 3 inserts See Rx Instructions .Route .MEDSUPPLY Qty: 1 0RF Rx Instructions: As directed to the shoe jeremíasanjel famotidine [Acid Credit Card Control Clerk (famotidine)] 20 mg tablet 20 mg PO DAILY atorvastatin 40 mg tablet 40 mg PO DAILY baclofen 10 mg tablet 10 mg PO TID Trulicity 0.75 mg/0.5 mL pen injector 0.75 mg SUBCUT .weekly Rx Instructions: ON FRIDAY Jardiance 10 mg tablet 10 mg PO DAILY trazodone 50 mg tablet 50 mg PO .qhs PRN (Reason: sleep) Qty: 30 3RF Rx Instructions: Take one tablet at bedtime as needed for sleep quetiapine [Seroquel] 25 mg tablet 25 mg PO BEDTIME Qty: 30 3RF Rx Instructions: Take one tablet at bedtime amoxicillin 500 mg capsule 500 mg PO ONCE Qty: 24 0RF Rx Instructions: take 4 tabs by mouth 1 hour prior to dental procedure oxycodone 5 mg tablet 5 mg PO Q6H PRN (Reason: pain) 7 Days Qty: 28 0RF albuterol sulfate 90 mcg/actuation HFA aerosol inhaler 2 inh INHALATION Q4H PRN (Reason: shortness of breath or wheezing) Qty: 18 0RF insulin aspart U-100 [Novolog FlexPen U-100 Insulin] 100 unit/mL (3 mL) insulin pen 10 unit SUBCUT BID PRN (Reason: DIABETES) Rx Instructions: PER SLIDING SCALE Levemir FlexTouch U100 Insulin 100 unit/mL (3 mL) insulin pen See Rx Instructions .ROUTE .COMPLEX Rx Instructions: INJECT UP TO 50 UNITS TWICE DAILY PER SLIDING SCALE. sertraline 100 mg tablet 100 mg PO DAILY Senna-S 8.6-50 mg tablet 1 tab-cap PO DAILY Qty: 10 0RF potassium chloride 10 mEq tablet extended release 10 meq PO BEDTIME PRN (Reason: Only when you take Lasix) Qty: 10 0RF furosemide 20 mg tablet 20 mg PO DAILY PRN (Reason: Only with weight gain) Qty: 10 0RF aspirin 325 mg capsule 325 mg PO BID 35 Days Qty: 70 0RF Referrals: Ana Maria Flores MD [Primary Care Provider] - Coding Level of Care Code ED Sack Sewer for Shaun Vu
--- NOTE | 2023-11-18 12:11 | CT_ITS ---
WS: [id number] CT ABDOMEN PELVIS TECHNIQUE: Contrast-enhanced CT of the abdomen and pelvis with coronal and sagittal reformatted image s. CLINICAL INFORMATION: L lower fluid collection/surgical incision COMPARISON: None. DLP: 735.[address] scans at [facility] use at least one of these dose optimization techniques: automated e xposure control; mA and/or kV adjustment per patient size (includes targeted exams where dose is matc hed to clinical indication); or iterative reconstruction. FINDINGS: In the LEFT lower quadrant at the level of the LEFT iliac wing is a heterogeneous collection compatib le with hematoma with subacute blood products. This measures approximately 4.8 x 3.1 cm in the subcut aneous soft tissues. This extends along the lateral internal oblique and external oblique muscles. Diffuse fatty infiltration of the liver. Splenic granulomas. Normal portal vein and splenic vein. Fat ty atrophy of the pancreas. Lung bases are well aerated. Normal GE junction. Adrenal glands are li l. No hydronephrosis in either kidney. RIGHT MILY degrades images in the pelvis. Postoperative changes about the RIGHT hip. No drainable fluid collections about the RIGHT hip. Sigmoid diverticulosis. No evidence of acute diverticulitis. Tiny fat-containing umbilical hernia. Di sc narrowing in the lower lumbar spine. Laminectomy defects lower lumbar spine. CT/CT abdomen pelvis w con* [id number] IMPRESSION: 1. In the LEFT lower quadrant at the level of the iliac wing is a subcutaneous mixed attenuation hematoma described above. 2. Postoperative changes of the RIGHT hip. No drainable fluid collections abou t the RIGHT hip. 3. No other acute findings.
--- NOTE | 2023-11-18 12:12 | ED_ITS ---
HPI - Abdominal Pain 2 General: Chief Complaint: Extremity Injury, Lower Stated Complaint: Left hip pain Time Seen by Provider: 11/18/23 09:39 Source: patient Mode of arrival: ambulatory Limitations: no limitations History of Present Illness: Patient is a 53-year-old female presents to ED today with a complaint of pain and swelling near a left abdominal incision that was performed during her [place] right hip arthroplasty. Surgery was performed by Dr. Robbins approximately 2.5 weeks ago. She has had follow-up with orthopedics and everything regarding the right hip seem to be normal. She states she woke up this morning with pain and swelling to the left lower abdomen underlying one of her surgical incisions. No fevers or chills. No vomiting. MD elicited complaint: abdominal pain Pertinent past history: none Onset (ago): hour(s) Pain Consistency: constant Location: LLQ Severity: severe Radiation: none Migration to: no migration Exacerbating factors: movement Relieving factors: nothing Context: other (recent surgery) Associated Symptoms: Denies chills, diarrhea, fever(s), nausea and vomiting Related Data: Patient : No Review of Systems 2 Const: Denies: fever(s), chills, body aches, fatigue or malaise Card: Denies: chest pain Resp: Denies: dyspnea GI: Reports: abdominal pain (LLQ abdominal pain/swelling); Denies: nausea, vomiting or diarrhea Musc: Reports: joint pain (feels like her R hip joint is doing good); Denies: neck pain, back pain, extremity pain, extremity swelling, joint redness or joint warmth Neuro: Denies: headache(s), numbness in extremities, weakness in extremities or sensory changes PFSH ED 2 PFSH: Medical History Thrombocytopenia Postoperative anemia Peripheral neuropathy COPD (chronic obstructive pulmonary disease) Obstructive sleep apnea Emphysema lung Alcohol dependence with alcohol-induced persisting dementia Alcohol dependence with alcohol-induced mood disorder Psychiatric care HTN (hypertension) Type 2 diabetes mellitus FREDY (obstructive sleep apnea) Hypercholesteremia Hypothyroidism (acquired) GERD (gastroesophageal reflux disease) Kidney stone Surgical History S/P total right hip arthroplasty Family History Other Atrial fibrillation CAD (coronary artery disease) Diabetes Hyperlipidemia Hypertension Social History Smoking and tobacco/nicotine status: former use of tobacco/nicotine Second hand smoke exposure: Yes Alcohol intake: current Alcohol intake frequency: holidays/special occasions only Substance/Drug Use: never Lives independently: Yes Household members: spouse Marital status: Current occupational status: employed Current occupational exposures/hazards: No Do you think of yourself as: Straight/Heterosexual Current gender identity: Female Physical Exam 2 Const: COMMON NORMALS: no acute distress, average body habitus, patient oriented x3, no limitations, healthy appearing, alert and well nourished G ENERAL APPEARANCE: cooperative ORIENTATION/CONSCIOUSNESS: Yes awake, Yes oriented to person, Yes oriented to place and Yes oriented to time Resp: COMMON NORMALS: normal respiratory effort and clear to auscultation bilaterally AUSCULTATION: clear to auscultation bilaterally Cardio: COMMON NORMALS: regular rate and regular rhythm RATE: regular rate RHYTHM: regular rhythm GI: AUSCULTATION: Yes normoactive bowel sounds GI image (female): 1. large firm mass/fluid collection L lower abdomen under a well healed surgical incision Neuro: COMMON NORMALS: patient oriented x3 SENSORIUM/ORIENTATION: Yes alert, Yes oriented to person, Yes oriented to place and Yes oriented to time Course 2 Consultations: Consultation #1: Dr. Robbins-recommends compression if tolerate, ice, time, and he can follow up in office in 1-2 weeks Vital Signs: Vital signs: Vital Signs Pulse Rate 86 11/18/23 13:04 Respiratory Rate 17 11/18/23 13:01 Blood Pressure 124/71 11/18/23 13:04 Pulse Oximetry 99 11/18/23 13:04 Oxygen Delivery Me thod Room Air 11/18/23 13:04 MDM - Abdominal Pain Medical Decision Making Patient here for pain and swelling underlying her left iliac incision for her right Lincoln arthroplasty 2 weeks ago. Vital signs are stable. She has a normal white count. CT scan obtained which shows a large hematoma. Spoke to patient's surgeon, Dr. Robbins, who stated this is very common following procedure. He states hematoma becomes more obvious once the surrounding edema resolves. Incision appears well-healed and clean. There is no erythema or warmth to suggest infection. Recommend compression, ice, time. Case management will have her set up with follow-up orthopedics. Medical Records I reviewed the patient's medical records. Lab Data I reviewed the patient's lab results. 11/18/23 12:41 11/18/23 12:41 Labs/Radiology: Radiology Impressions Abdomen/Pelvis CT 11/18/23 12:11 IMPRESSION: 1. In the LEFT lower quadrant at the level of the iliac wing is a subcutaneous mixed attenuation hematoma described above. 2. Postoperative changes of the RIGHT hip. No drainable fluid collections about the RIGHT hip. 3. No other acute findings. Laboratory Results WBC 7.70 10^3/uL (3.29-11.43) 11/18/23 12:41 RBC 3.74 10^6/uL (3.85-5.65) L 11/18/23 12:41 Hgb 11.00 g/dL (11.27-16.99) L 11/18/23 12:41 Hct 34.7 % (36-47) L 11/18/23 12:41 MCV 92.8 fl (85-98) 11/18/23 12:41 MCH 29.4 pg (27-33) 11/18/23 12:41 MCHC 31.7 g/dL (30-55) 11/18/23 12:41 RDW 14.3 % (12.1-15.1) 11/18/23 12:41 Plt Count 308 10^3/cmm (157-399) 11/18/23 12:41 MPV 10.8 fL (7.4-10.4) H 11/18/23 12:41 Neut % (Auto) 72.9 % 11/18/23 12:41 Lymph % (Auto) 17.0 % 11/18/23 12:41 [place] % (Auto) 6.8 % 11/18/23 12:41 Eos % (Auto) 1.8 % 11/18/23 12:41 Baso % (Auto) 1.0 % 11/18/23 12:41 Neut # (Auto) 5.61 10^3/uL (1.8-7.7) 11/18/23 12:41 Lymph # (Auto) 1.3 10^3/uL (0.8-4.8) 11/18/23 12:41 [place] # (Auto) 0.5 10^3/uL (0.2-0.9) 11/18/23 12:41 Eos # (Auto) 0.1 10^3/uL (0.0-0.8) 11/18/23 12:41 Baso # (Auto) 0.1 10^3/uL (0.0-0.1) 11/18/23 12:41 Nucleated RBC % (auto) 0 % 11/18/23 12:41 Nucleated RBCs # 0.0 /100WBC 11/18/23 12:41 Sodium 137 mmol/L (136-145) 11/18/23 12:41 Potassium 4.2 mmol/L (3.5-5.1) 11/18/23 12:41 Chloride 99 mmol/L (98-107) 11/18/23 12:41 Carbon Dioxide 19 mmol/L (22-29) L 11/18/23 12:41 Anion Gap 23.2 (5-19) H 11/18/23 12:41 BUN 29 mg/dL (6-20) H 11/18/23 12:41 Creatinine 1.4 mg/dL (0.5-0.9) H 11/18/23 12:41 GFR Calculation 39.0 mL/min (90-130) L 11/18/23 12:41 Glucose 185 mg/dL (65-115) H 11/18/23 12:41 Calculated Osmolality 295 mOsm/kg (285-295) 11/18/23 12:41 Calcium 10.0 mg/dL (8.5-10.5) 11/18/23 12:41 Total Bilirubin 0.2 mg/dL (0.15-1.2) 11/18/23 12:41 AST 22 U/L (0-32) 11/18/23 12:41 ALT 16 U/L (0-33) 11/18/23 12:41 Alkaline Phosphatase 202 U/L (35-105) H 11/18/23 12:41 Total Protein 8.7 g/dL (6.6-8.7) 11/18/23 12:41 Albumin 4.6 g/dL (3.5-5.2) 11/18/23 12:41 Globulin 4.1 g/dL (1.3-4.6) 11/18/23 12:41 All radiology interpretation(s) finalized by discharge Discharge Plan Discharge Patient Disposition: Home Clinical Impression: Postoperative hematoma Qualifiers: Surgical complication system/body Area: musculoskeletal system Procedure type: musculoskeletal Qualified Code(s): M96.840 - Postprocedural hematoma of a musculoskeletal structure following a musculoskeletal system procedure Condition: Stable Prescriptions: No Action metoprolol tartrate 25 mg tablet 25 mg PO BID levothyroxine 25 mcg capsule 25 mcg PO DAILY acetaminophen [Tylenol Extra Strength] 500 mg tablet 500 mg PO BID ramipril [Altace] 2.5 mg capsule 2.5 mg PO BID (DME) diabetic shoes with 3 inserts See Rx Instructions .Route .MEDSUPPLY Qty: 1 0RF Rx Instructions: As directed to the shoe junior famotidine [Acid Transport Aircrewman (famotidine)] 20 mg tablet 20 mg PO DAILY atorvastatin 40 mg tablet 40 mg PO DAILY baclofen 10 mg tablet 10 mg PO TID Trulicity 0.75 mg/0.5 mL pen injector 0.75 mg SUBCUT .weekly Rx Instructions: ON FRIDAY Jardiance 10 mg tablet 10 mg PO DAILY quetiapine [Seroquel] 25 mg tablet 25 mg PO BEDTIME Qty: 30 3RF oxycodone 5 mg tablet 5 mg PO Q6H PRN (Reason: pain) 7 Days Qty: 28 0RF albuterol sulfate 90 mcg/actuation HFA aerosol inhaler 2 inh INHALATION Q4H PRN (Reason: shortness of breath or wheezing) Qty: 18 0RF insulin aspart U-100 [Novolog FlexPen U-100 Insulin] 100 unit/mL (3 mL) insulin pen 10 unit SUBCUT BID PRN (Reason: DIABETES) Rx Instructions: PER SLIDING SCALE Levemir FlexTouch U100 Insulin 100 unit/mL (3 mL) insulin pen See Rx Instructions .ROUTE .COMPLEX Rx Instructions: INJECT UP TO 50 UNITS TWICE DAILY PER SLIDING SCALE. hydrocodone-acetaminophen 10-325 mg tablet 1 tab PO Q6H PRN (Reason: Pain) amoxicillin 500 mg capsule See Rx Instructions .ROUTE .COMPLEX Rx Instructions: Take 4 tablets by mouth 1 hour prior to dental procedure. trazodone 50 mg tablet 50 mg PO BEDTIME PRN (Reason: sleep) Senna-S 8.6-50 mg tablet 1 tab PO DAILY potassium chloride 10 mEq tablet extended release 10 meq PO BEDTIME PRN (Reason: Only when you take Lasix) Qty: 10 0RF furosemide 20 mg tablet 20 mg PO DAILY PRN (Reason: Only with weight gain) Qty: 10 0RF aspirin 325 mg capsule 325 mg PO BID 35 Days Qty: 70 0RF Discharge Orders: Discharge ED (Routine); Ordered 11/18/23 Ordered By: Pauly Mitchell Referrals: Ana Maria Flores MD [Primary Care Provider] - Patient Instructions: Hematoma (ED) Activity Restrictions/Additional Instructions: As we discussed you can apply pressure with the SHARLENE wrap and ice the hematoma to help as much as possible. Ultimately time will be what is required for healing. We will have case management set you up with a follow-up appointment with orthopedics. Coding Level of Care Code ED Window Shade Ring Coverer for Shaun Vu
[2023-11-18 12:50] LABS: Basophils # 0.1 10^3/uL (0.0-0.1); Eosinophils # 0.1 10^3/uL (0.0-0.8); Eosinophils % 1.8 %; Hematocrit 34.7 % (36-47); Lymphocytes # 1.3 10^3/uL (0.8-4.8); Mean Corpuscular HGB Conc 31.7 g/dL (30-55); Mean Corpuscular Hemoglobin 29.4 pg (27-33); Mean Corpuscular Volume 92.8 fl (85-98); Mean Platelet Volume 10.8 fL (7.4-10.4); Monocytes # 0.5 10^3/uL (0.2-0.9); Monocytes % 6.8 %; Neutrophils # 5.61 10^3/uL (1.8-7.7); Neutrophils % 72.9 %; Nucleated Red Blood Cells % 0 %; Platelet Count 308 10^3/cmm (157-399); Red Blood Count 3.74 10^6/uL (3.85-5.65); Red Cell Distribution Width 14.3 % (12.1-15.1)
[2023-11-18 13:01] VITALS: RESP 17; O2SAT 98
[2023-11-18] MEDS: morphine 4 mg/mL SDV 1 mL IVP (13:01)
[2023-11-18] MEDS: ondansetron 2 mg/ML SDV 2 mL 4 MG IVP (13:01)
[2023-11-18 13:04] VITALS: BP 124/71; PULSE 86; O2SAT 99
[2023-11-18 13:07] LABS: Alanine Aminotransferase 16 U/L (0-33); Albumin Level 4.6 g/dL (3.5-5.2); Alkaline Phosphatase 202 U/L (35-105); Anion Gap 23.2 (5-19); Aspartate Amino Transferase 22 U/L (0-32); Blood Urea Nitrogen 29 mg/dL (6-20); Carbon Dioxide 19 mmol/L (22-29); Chloride 99 mmol/L (98-107); Creatinine Clr Calc Pharmacy 44.6433; Globulin 4.1 g/dL (1.3-4.6); Glucose 185 mg/dL (65-115); Osmolality Calculated 295 mOsm/kg (285-295); Potassium 4.2 mmol/L (3.5-5.1); Sodium 137 mmol/L (136-145); Total Bilirubin 0.2 mg/dL (0.15-1.2); Total Protein 8.7 g/dL (6.6-8.7)
[2023-11-18] MEDS: iohexol 350 mg/mL 500 mL Btl (per mL) IV (13:12)
--- NOTE | 2023-11-18 13:50 | PC.PHAR ---
PT STATES HAS NOT TAKEN ANY MEDICATION OR INSULIN TODAY DUE TO HAS NOT EATEN.
[2023-11-18 14:52] VITALS: PULSE 71; O2SAT 96
--- NOTE | 2023-11-20 07:48 | DCPLANNER ---
messaged ortho for er f/u
== END 2023-11-18 14:53 | disposition home or self-care (01) ==
PROVIDERS: Emergency Provider Physician Assistant; PCP Internal Medicine
DX: M96.840 Postprocedural hematoma of a musculoskeletal structure following a musculoskeletal system procedure (principal); Z79.85 Long-term (current) use of injectable non-insulin antidiabetic drugs; Z79.82 Long term (current) use of aspirin; Z79.4 Long term (current) use of insulin; J44.9 Chronic obstructive pulmonary disease, unspecified; I10 Essential (primary) hypertension; E11.42 Type 2 diabetes mellitus with diabetic polyneuropathy; Z96.641 Presence of right artificial hip joint; Z87.891 Personal history of nicotine dependence
CPT/HCPCS: 74177; 80053; 85025; 96374; 96375; 99285; J2270; J2405; Q9967

== ENCOUNTER 2023-12-03 10:15 | Outpatient (RCR) | payer MEDICARE, SELFPAY | END 2023-12-03 23:59 | disposition home or self-care (01) | LOC: SPT 10:15 | PROVIDERS: PCP Internal Medicine; Visit Provider Physician Assistant | DX: Z47.1 Aftercare following joint replacement surgery (principal); Z96.641 Presence of right artificial hip joint | CPT/HCPCS: 97161 ==

== ENCOUNTER 2023-12-04 06:00 | Outpatient (RCR) | payer MEDICARE, SELFPAY | END 2024-01-03 23:59 | disposition home or self-care (01) | LOC: SPT 06:00 | PROVIDERS: PCP Internal Medicine; Visit Provider Physician Assistant | DX: Z47.1 Aftercare following joint replacement surgery (principal); Z96.641 Presence of right artificial hip joint | CPT/HCPCS: 97110 ==

== ENCOUNTER → 2023-12-12 10:35 | Outpatient (BNVA) | payer MEDICARE, SELFPAY | PROVIDERS: PCP Internal Medicine; Visit Provider Physician Assistant | DX: Z96.641 Presence of right artificial hip joint (principal) | CPT/HCPCS: 73502; 99024 ==

== ENCOUNTER → 2024-02-06 10:34 | Outpatient (BNVA) | payer MEDICARE, SELFPAY | PROVIDERS: PCP Internal Medicine; Visit Provider Student in an Organized Health Care Education/Training Program | DX: Z96.641 Presence of right artificial hip joint (principal) | CPT/HCPCS: 73502 ==

== ENCOUNTER 2024-03-16 16:44 | Outpatient (CLI) | payer MEDICARE, SELFPAY ==
--- NOTE | 2024-03-16 17:15 | CT_ITS ---
WS: [id number] CT LEFT HIP, noncontrast HISTORY: M16.12 - Unilateral primary osteoarthritis, left hip TECHNIQUE: Protocol for [facility] total hip replacement has been obtained. This includes axial imaging thr ough the LEFT hip AND LEFT KNEE. DLP: 83.65 mGy COMPARISON: 02/06/2024 Status post RIGHT hip arthroplasty. Moderate joint space narrowing involving the LEFT hip. Small subc hondral cysts on both sides of the joint space. No fractures. Mild synovial thickening. Mild vascular calcifications in the femoral artery. LEFT knee: Negative. CT/CT hip LT [facility] [id number] IMPRESSION: CT imaging provided for [facility] robotic total LEFT HIP replacement.
== END 2024-03-16 16:45 | disposition home or self-care (01) ==
LOC: RAD 16:44
PROVIDERS: PCP Internal Medicine; Visit Provider Student in an Organized Health Care Education/Training Program
DX: Z01.818 Encounter for other preprocedural examination (principal); M16.12 Unilateral primary osteoarthritis, left hip; Z96.641 Presence of right artificial hip joint
CPT/HCPCS: 73700

== ENCOUNTER → 2024-03-23 15:01 | Outpatient (BNVA) | payer MEDICARE, SELFPAY | PROVIDERS: PCP Internal Medicine; Visit Provider Physician Assistant | DX: M16.0 Bilateral primary osteoarthritis of hip (principal) | CPT/HCPCS: 99213 ==

== ENCOUNTER → 2024-03-24 09:31 | Outpatient (BNVA) | payer MEDICARE, SELFPAY | PROVIDERS: PCP Internal Medicine; Visit Provider Family Medicine | DX: Z01.818 Encounter for other preprocedural examination (principal); E11.9 Type 2 diabetes mellitus without complications | CPT/HCPCS: 80053; 81003; 83036; 85025 ==

== ENCOUNTER 2024-04-05 10:07 | Observation (INO) | payer MEDICARE, SELFPAY ==
--- OUTSIDE RECORDS SUMMARY | 2024-03-19 14:34 | XMS_ITS ---
Laboratory report Created on: March 16, 2024 JEREYOBANY Dill : 1970 Sex: Female Author Name MAURICE BAEZA Unknown PROBLEMS Problems List Code Description E11.65 E78.2 RESULTS Laboratory Orders Date Order Code Test 2024-03-11 155331 CBC WITH DIFFERE NTIAL/PLATELET 2024-03-11 830616 COMP. METABOLIC PANEL (14) 2024-03-11 111974 HEMOGLOBIN A1C 2024-03-11 146970 LIPID PANEL W/ C HOL/HDL RATIO Laboratory Results Date LOINC Test Value Unit Reference Range Interpre tation 2024-03-11 6690-2 WBC 3.7 X10E3/UL 3.4-10.8 2024-03-11 789-8 RBC 4.25 X10E6/UL 3.77-5.28 2024-03-11 718-7 HEMOGLOBIN 12.3 G/DL 11.1-15.9 2024-03-11 4544-3 HEMATOCRIT 37.7 % 34.0-46.6 2024-03-11 787-2 MCV 89 FL 79-97 2024-03-11 785-6 MCH 28.9 PG 26.6-33.0 2024-03-11 786-4 MCHC 32.6 G/DL 31.5-35.7 2024-03-11 788-0 RDW 15.5 % 11.7-15.4 H 2024-03-11 777-3 PLATELETS 227 X10E3/UL 439-111 8752-11-07 770-8 NEUTROPHILS 58 % 2024-03-11 736-9 LYMPHS 28 % 2024-03-11 5905-5 MONOCYTES 10 % 2024-03-11 713-8 EOS 2 % 2024-03-11 706-2 BASOS 1 % 2024-03-11 751-8 NEUTROPHILS (ABSOLUTE) 2.1 X10E3/UL 1.4-7.0 2024-03-11 731-0 LYMPHS (ABSOLUTE) 1 X10E3/UL 0.7-3.1 2024-03-11 742-7 MONOCYTES(ABSOLUTE) .4 X10E3/UL 0.1-0.9 2024-03-11 711-2 EOS (ABSOLUTE) .1 X10E3/UL 0.0-0.4 2024-03-11 704-7 BASO (ABSOLUTE) 0 X10E3/UL 0.0-0.2 2024-03-11 67470-9 IMMATURE GRANULOCYTES 1 % 2024-03-11 18737-3 IMMATURE GRANS (ABS) 0 X10E3/UL 0.0-0.1 2024-03-11 2345-7 GLUCOSE 99 MG/DL 70-99 2024-03-11 3094-0 BUN 17 MG/DL 6-24 2024-03-11 2160-0 CREATININE 1.2 MG/DL 0.57-1.00 H 2024-03-11 48123-7 EGFR 53 ML/MIN/1.73 >59 L 2024-03-11 3097-3 BUN/CREATININE RATIO 14 9-23 2024-03-11 2951-2 SODIUM 141 MMOL/L 128-916 2923-11-07 2823-3 POTASSIUM 3.9 MMOL/L 3.5-5.2 2024-03-11 2075-0 CHLORIDE 100 MMOL/L 96-106 2024-03-11 2028-9 CARBON DIOXIDE, TOTAL 25 MMOL/L 20-29 2024-03-11 26574-1 CALCIUM 9.8 MG/DL 8.7-10.2 2024-03-11 2885-2 PROTEIN, TOTAL 7.7 G/DL 6.0-8.5 2024-03-11 1751-7 ALBUMIN 4.7 G/DL 3.8-4.9 2024-03-11 99181-8 GLOBULIN, TOTAL 3 G/DL 1.5-4.5 2024-03-11 1975-2 BILIRUBIN, TOTAL .5 MG/DL 0.0-1.2 2024-03-11 6768-6 ALKALINE PHOSPHATASE 114 IU/L 44-121 2024-03-11 1920-8 AST (SGOT) 151 IU/L 0-40 H 2024-03-11 1742-6 ALT (SGPT) 62 IU/L 0-32 H 2024-03-11 4548-4 HEMOGLOBIN A1C 7.2 % 4.8-5.6 H 2024-03-113-3 CHOLESTEROL, TOTAL 200 MG/DL 100-199 H 2024-03-11 2571-8 TRIGLYCERIDES 230 MG/DL 0-149 H 2024-03-11 2085-9 HDL CHOLESTEROL 83 MG/DL >39 2024-03-11 08088-6 VLDL CHOLESTEROL AUNG 37 MG/DL 5-40 2024-03-11 85242-2 LDL CHOL CALC ([facility]) 80 MG/DL 0-99 2024-03-11 9830-1 T CHOL/HDL RATIO 2.4 RATIO 0.0-4.4
--- OUTSIDE RECORDS SUMMARY | 2024-03-19 14:34 | XMS_ITS ---
Laboratory report Created on: January 16, 2024 YOBANY OQUENDO : 1970 Sex: Female Author Name MAURICE BAEZA Unknown PROBLEMS Problems List Code Description E03.9 E11.65 E78.2 RESULTS Laboratory Orders Date Order Code Test 2022-07-05 [id number] CMP14+CBC/D/PLT+ TSH 2022-07-05 183262 LIPID PANEL W/ C HOL/HDL RATIO 2022-07-05 563469 HEMOGLOBIN A1C Laboratory Results Date LOINC Test Value Unit Reference Range Interpre tation 2022-07-05 2345-7 GLUCOSE 350 MG/DL 70-99 H 2022-07-05 3094-0 BUN 18 MG/DL 6-24 2022-07-05 2160-0 CREATININE 1.08 MG/DL 0.57-1.00 H 2022-07-05 72499-6 EGFR 61 ML/MIN/1.73 >59 2022-07-05 3097-3 BUN/CREATININE RATIO 17 9-23 2022-07-05 2951-2 SODIUM 130 MMOL/L 134-144 L 2022-07-05 2823-3 POTASSIUM 4.1 MMOL/L 3.5-5.2 2022-07-05 2075-0 CHLORIDE 95 MMOL/L 96-106 L 2022-07-05 2028-9 CARBON DIOXIDE, TOTAL 21 MMOL/L 20-29 2022-07-05 59866-2 CALCIUM 9.9 MG/DL 8.7-10.2 2022-07-05 2885-2 PROTEIN, TOTAL 7.4 G/DL 6.0-8.5 2022-07-05 1751-7 ALBUMIN 4.2 G/DL 3.8-4.9 2022-07-05 40105-1 GLOBULIN, TOTAL 3.2 G/DL 1.5-4.5 2022-07-05 1759-0 A/G RATIO 1.3 1.2-2.2 2022-07-05 1975-2 BILIRUBIN, TOTAL .6 MG/DL 0.0-1.2 2022-07-05 6768-6 ALKALINE PHOSPHATASE 123 IU/L 44-121 H 2022-07-05 1920-8 AST (SGOT) 163 IU/L 0-40 H 2022-07-05 1742-6 ALT (SGPT) 81 IU/L 0-32 H 2022-07-05 19395-4 TSH 10.1 UIU/ML 0.450-4.500 H 2022-07-05 6690-2 WBC 5.5 X10E3/UL 3.4-10.8 2022-07-05 789-8 RBC 3.85 X10E6/UL 3.77-5.28 2022-07-05 718-7 HEMOGLOBIN 12 G/DL 11.1-15.9 2022-07-05 4544-3 HEMATOCRIT 36.7 % 34.0-46.6 2022-07-05 787-2 MCV 95 FL 79-97 2022-07-05 785-6 MCH 31.2 PG 26.6-33.0 2022-07-05 786-4 MCHC 32.7 G/DL 31.5-35.7 2022-07-05 788-0 RDW 12.8 % 11.7-15.4 2022-07-05 777-3 PLATELETS 162 X10E3/UL 235-045 2849-03-03 770-8 NEUTROPHILS 68 % 2022-07-05 736-9 LYMPHS 13 % 2022-07-05 5905-5 MONOCYTES 15 % 2022-07-05 713-8 EOS 2 % 2022-07-05 706-2 BASOS 1 % 2022-07-05 751-8 NEUTROPHILS (ABSOLUTE) 3.8 X10E3/UL 1.4-7.0 2022-07-05 731-0 LYMPHS (ABSOLUTE) .7 X10E3/UL 0.7-3.1 2022-07-05 742-7 MONOCYTES(ABSOLUTE) .8 X10E3/UL 0.1-0.9 2022-07-05 711-2 EOS (ABSOLUTE) .1 X10E3/UL 0.0-0.4 2022-07-05 704-7 BASO (ABSOLUTE) .1 X10E3/UL 0.0-0.2 2022-07-05 54329-0 IMMATURE GRANULOCYTES 1 % 2022-07-05 75093-1 IMMATURE GRANS (ABS) 0 X10E3/UL 0.0-0.1 2022-07-052092-3 CHOLESTEROL, TOTAL 141 MG/DL 971-981 6287-03-03 2571-8 TRIGLYCERIDES 121 MG/DL 0-149 2022-07-05 2085-9 HDL CHOLESTEROL 34 MG/DL >39 L 2022-07-05 21537-8 VLDL CHOLESTEROL AUNG 22 MG/DL 5-40 2022-07-05 98687-5 LDL CHOL CALC ([facility]) 85 MG/DL 0-99 2022-07-05 9830-1 T CHOL/HDL RATIO 4.1 RATIO 0.0-4.4 2022-07-05 4548-4 HEMOGLOBIN A1C 9.3 % 4.8-5.6 H
--- OUTSIDE RECORDS SUMMARY | 2024-03-19 14:35 | XMS_ITS | Patient Health Record ---
Author Name Unknown Organization [facility] Address [address] [place] [address] Care Team Providers Care Cardiology Coordinator Name Role Phone Migration, Provider Unavailable Unavailable Alexia Richey Unavailable [phone] Results Component Value Reference Range Notes X-Ray Image Reviewed date:06/24/2023 12:00:00 AM Interpretation: Performing Lab: Notes/Report: MR Hip LT wo Contrast Reviewed date:06/18/2023 12:00:00 AM Interpretation: Performing Lab: Notes/Report: Reason For Referral No Information Medications Medication SIG (Take, Route, Frequency, Duration) Notes Start Date End Date Status tamsulosin *[facility]* Active Ventolin HFA *Pick strength-f orm from [facility] for eRX* Active CELECOXIB 50MG CAP TAKE 1 CAPSULE BY MOUTH TWICE DAILY *[facility]* Active Baclofen *Pick strength-f orm from [facility] for eRX* Active Sertraline [facility]* Active Aspirin *[facility]* Active trazodone *[facility] and Interaction Alert[facility]* Active Magnesium Oxide *Pick strength-f orm from [facility] for eRX* Active atorvastatin *[facility] and [facility]* Active Folic Acid *Pick strength-f orm from [facility] for eRX* Active Klor-Con *Pick strength-f orm from [facility] for eRX* Active Ramipril *Pick strength-f orm from [facility] for eRX* Active Lantus Solostar U-100 Insulin *[facility] and [facility]* Active Methocarbamol *Pick strength-f orm from [facility] for eRX* Active Omeprazole *[facility]* Active Metoprolol Tartrate *Pick streng th-form [facility]* Active Levothyroxine *[facility] for [facility] and Interaction Alerts* Active Gabapentin *[facility]f [facility]m [facility] for [facility]* Active thiamine HCl (vitamin B1) *[facility] and Interaction Alerts* Active Vital Signs Height-cm 160.02 cm 09/03/2023 Weight-kg 77.27 kg 09/03/2023 Height 63.00 in 09/03/2023 Weight 170.00 lbs 09/03/2023 BMI 30 kg/m2 09/03/2023 Procedures Procedure Date Ordered Date Performed Result Body Sit e EPIDURAL/SPINAL 06/24/2023 06/24/2023 N/A Encounters Encounter Location Date Provider Diagnosis Migrated_Facility 0 0 02/28/2024 Provider Migration Migrated[facility]Facility 0 0 02/29/2024 Provider Migration [facility] [place] [address] [place] [address] 01/01/2024 Alexia Richey Migrated_Facility 0 0 05/16/2023 Provider Migration Chronic pain syndrome G89.4 Migrated_Facility 0 0 06/11/2023 Provider Migration Alcohol dependence, uncomplicated F10.20 ; Chronic pain syndrome G89.4 ; Other spondylosis with radiculopathy, lumbosacral region M47.27 ; Other intervertebral disc degeneration, lumbar region M51.36 ; Postlaminectomy syndrome, not elsewhere classified M96.1 and Unspecified abnormalities of gait and mobility R26.9 Migrated_Facility 0 0 06/24/2023 Provider Migration Alcohol dependence, uncomplicated F10.20 ; Chronic pain syndrome G89.4 ; Other spondylosis with radiculopathy, lumbosacral region M47.27 ; Other intervertebral disc degeneration, lumbar region M51.36 ; Postlaminectomy syndrome, not elsewhere classified M96.1 and Unspecified abnormalities of gait and mobility R26.9 Migrated_Facility 0 0 07/16/2023 Provider Migration Alcohol dependence, uncomplicated F10.20 ; Chronic pain syndrome G89.4 ; Other spondylosis with radiculopathy, lumbosacral region M47.27 ; Other intervertebral disc degeneration, lumbar region M51.36 ; Postlaminectomy syndrome, not elsewhere classified M96.1 and Unspecified abnormalities of gait and mobility R26.9 Migrated_Facility 0 0 08/06/2023 Provider Migration Alcohol dependence, uncomplicated F10.20 ; Chronic pain syndrome G89.4 ; Other spondylosis with radiculopathy, lumbosacral region M47.27 ; Other intervertebral disc degeneration, lumbar region M51.36 ; Postlaminectomy syndrome, not elsewhere classified M96.1 ; Unspecified abnormalities of gait and mobility R26.9 and salvage determiner (current) use of opiate analgesic Z79.891 Migrated_Facility 0 0 09/03/2023 Provider Migration Alcohol dependence, uncomplicated F10.20 ; Chronic pain syndrome G89.4 ; Unilateral primary osteoarthritis, left hip M16.12 ; Other spondylosis with radiculopathy, lumbosacral region M47.27 ; Other intervertebral disc degeneration, lumbar region M51.36 ; Postlaminectomy syndrome, not elsewhere classified M96.1 ; Unspecified abnormalities of gait and mobility R26.9 and [facility] (current) use of opiate analgesic Z79.891 Migrated_Facility 0 0 10/24/2023 Provider Migration Alcohol dependence, uncomplicated F10.20 ; Chronic pain syndrome G89.4 ; Unilateral primary osteoarthritis, left hip M16.12 ; Other spondylosis with radiculopathy, lumbosacral region M47.27 ; Other intervertebral disc degeneration, lumbar region M51.36 ; Postlaminectomy syndrome, not elsewhere classified M96.1 ; Unspecified abnormalities of gait and mobility R26.9 and salvage determiner (current) use of opiate analgesic Z79.891 Assessments Encounter Date Diagnosis (ICD Code) Assessment Notes Treat ment Notes Treatment Clinical Notes 10/24/2023 Alcohol dependence, uncomplicated (ICD-10 - F10.20) 10/24/2023 Chronic pain syndrom e (ICD-10 - G89.4) 10/24/2023 Unilateral primary osteoarthritis, left hip (ICD-10 - M16.12) 10/24/2023 Other spondylosis wi th radiculopathy, lumbosacral region (ICD-10 - M47.27) 10/24/2023 Other intervertebral disc degeneration, lumbar region (ICD-10 - M51.36) 10/24/2023 Postlaminectomy syndrome, not elsewhere classified (ICD-10 - M96.1) 10/24/2023 Unspecified abnormalities of gait and mobility (ICD-10 - R26.9) 10/24/2023 salvage determiner (current) use of opiate analgesic (ICD-10 - Z79.891) 07/16/2023 Alcohol dependence, uncomplicated (ICD-10 - F10.20) 07/16/2023 Chronic pain syndrom e (ICD-10 - G89.4) 07/16/2023 Other spondylosis wi th radiculopathy, lumbosacral region (ICD-10 - M47.27) 07/16/2023 Other intervertebral disc degeneration, lumbar region (ICD-10 - M51.36) 07/16/2023 Postlaminectomy syndrome, not elsewhere classified (ICD-10 - M96.1) 07/16/2023 Unspecified abnormalities of gait and mobility (ICD-10 - R26.9) 09/03/2023 Alcohol dependence, uncomplicated (ICD-10 - F10.20) 09/03/2023 Chronic pain syndrom e (ICD-10 - G89.4) 09/03/2023 Unilateral primary osteoarthritis, left hip (ICD-10 - M16.12) 09/03/2023 Other spondylosis wi th radiculopathy, lumbosacral region (ICD-10 - M47.27) 09/03/2023 Other intervertebral disc degeneration, lumbar region (ICD-10 - M51.36) 09/03/2023 Postlaminectomy syndrome, not elsewhere classified (ICD-10 - M96.1) 09/03/2023 Unspecified abnormalities of gait and mobility (ICD-10 - R26.9) 09/03/2023 salvage determiner (current) use of opiate analgesic (ICD-10 - Z79.891) 06/24/2023 Alcohol dependence, uncomplicated (ICD-10 - F10.20) 06/24/2023 Chronic pain syndrom e (ICD-10 - G89.4) 06/24/2023 Other spondylosis wi th radiculopathy, lumbosacral region (ICD-10 - M47.27) 06/24/2023 Other intervertebral disc degeneration, lumbar region (ICD-10 - M51.36) 06/24/2023 Postlaminectomy syndrome, not elsewhere classified (ICD-10 - M96.1) 06/24/2023 Unspecified abnormalities of gait and mobility (ICD-10 - R26.9) 08/06/2023 Alcohol dependence, uncomplicated (ICD-10 - F10.20) 08/06/2023 Chronic pain syndrom e (ICD-10 - G89.4) 08/06/2023 Other spondylosis wi th radiculopathy, lumbosacral region (ICD-10 - M47.27) 08/06/2023 Other intervertebral disc degeneration, lumbar region (ICD-10 - M51.36) 08/06/2023 Postlaminectomy syndrome, not elsewhere classified (ICD-10 - M96.1) 08/06/2023 Unspecified abnormalities of gait and mobility (ICD-10 - R26.9) 08/06/2023 salvage determiner (current) use of opiate analgesic (ICD-10 - Z79.891) 05/16/2023 Chronic pain syndrom e (ICD-10 - G89.4) 06/11/2023 Alcohol dependence, uncomplicated (ICD-10 - F10.20) 06/11/2023 Chronic pain syndrom e (ICD-10 - G89.4) 06/11/2023 Other spondylosis wi th radiculopathy, lumbosacral region (ICD-10 - M47.27) 06/11/2023 Other intervertebral disc degeneration, lumbar region (ICD-10 - M51.36) 06/11/2023 Postlaminectomy syndrome, not elsewhere classified (ICD-10 - M96.1) 06/11/2023 Unspecified abnormalities of gait and mobility (ICD-10 - R26.9) Plan Of Treatment No Information
--- OUTSIDE RECORDS SUMMARY | 2024-03-19 14:35 | XMS_ITS ---
Author Name Unknown Organization [facility] Address [address] [place] [place] [address] Care Team Providers Care Senior Electronics Engineer Name Role Phone Migration, Provider Unavailable Unavailable REASON FOR VISIT EMR-Dandre Encounters Encounter Location Date Provider Diagnosis Migrated_Facility 0 0 02/28/2024 Provider Migration Plan Of Treatment Medication Medication Name Sig Start Date Stop Date Notes HYDROcodone-Acetaminop hen 5-325 MG Oral Tablet 0.5-1 Tablet every 8 hours 12/07/2023 01/06/2024 *Reorder from [facility] for eRx and Interaction Alerts* Progress Notes * Bharti OQUENDO CDOB: 8 (54 yo F)Acc No.[id number]:02/28/2024 Patient:?Bharti OQUENDO :1970???Age:54 Y???Sex:Female Address:[address] [place] [address] * Refills? Stop HYDROcodone-Acetaminophen 5-325 MG Oral Tablet, 0.5-1 Tablet every 8 hours Stop HYDROcodone-Acetaminophen 5-325 MG Oral Tablet, 0.5-1 Tablet every 8 hours Subjective: * Chief Complaints: * ???EMR-Dandre * Medical History:? * Surgical History:? * Hospitalization/Major Diagno stic Procedure:? * Medications:? Objective: * Vitals:? * Physical Examination:? Assessment: Plan: * Treatment: * Procedure Codes:? * * Date:?
--- OUTSIDE RECORDS SUMMARY | 2024-03-19 14:35 | XMS_ITS ---
Author Name Unknown Organization [facility] Address [address] [place] [address] Care Team Providers Care Photolithographer Name Role Phone Alexia Richey Unavailable [phone] REASON FOR VISIT 2 mo Encounters Encounter Location Date Provider Diagnosis [facility] [address] [address] 01/01/2024 Alexia Richey Plan Of Treatment No Information Progress Notes * Bharti LAWRENCE CDOB: 8 (54 yo F)Acc No.[id number]:01/01/2024 Progress Notes Patient:?Bharti LAWRENCE Provider:?ALOK Turcios :1970???Age:53 Y???Sex:Female D ate:01/01/2024 Address:[address] [place], [place] [id number] Subjective: * Chief Complaints: * ???1. 2 mo. * Medical History:? Objective: * Vitals:? Assessment: Plan: * Treatment: Forms: * Billing Information: * Visit Code:? * Procedure Codes:? Care Plan Details* * Electronic signature of Brittney Richey APRN on 03/19/2024 at 02:34 PM [facility] Sign off status: Pending * Provider:?ALOK Turcios Date:? Generated for Darius rodríguez/Eliezer/eTransmitting on:?03/19/2024 02:34 PM [facility]
--- OUTSIDE RECORDS SUMMARY | 2024-03-19 14:35 | XMS_ITS ---
Author Name Unknown Organization [facility] Address [address] [place] [address] Care Team Providers Care Young Adult Librarian Name Role Phone Migration, Provider Unavailable Unavailable REASON FOR VISIT EMR-[facility] Medications Medication SIG (Take, Route, Frequency, Duration) Notes Start Date End Date Status tamsulosin *[facility]* Active trazodone *[facility] and Interaction Alerts* Active Omeprazole *[facility]* Active CELECOXIB 50MG CAP TAKE 1 CAPSULE BY MOUTH TWICE DAILY *[facility] and Interaction Alerts* Active Metoprolol Tartrate *[facility] streng th[facility]* Active Folic Acid *[facility]* Active Ramipril *[facility]* Active Lantus Solostar U-100 Insulin *[facility] and Interaction Alerts* Active Levothyroxine *[facility] for [facility] and Interaction Alerts* Active thiamine HCl (vitamin B1) *[facility] for [facility] and Interaction Alerts* Active Ventolin HFA *[facility]* Active atorvastatin *[facility] and Interaction Alerts* Active Klor-Con *[facility]* Active Methocarbamol *[facility]* Active Gabapentin *[facility]* Active Sertraline *[facility] and Interaction Alerts* Active Aspirin *[facility]* Active Magnesium Oxide *Pick strength-f orm from [facility] for eRX* Active Baclofen *Pick strength-f orm from [facility] for eRX* Active Encounters Encounter Location Date Provider Diagnosis Migrated_Facility 0 0 02/29/2024 Provider Migration Plan Of Treatment No Information Progress Notes * Bharti OQUENDO CDOB: [birth year] (54 yo F)Acc No.[id number]:02/29/2024 Patient:?Bharti OQUENDO :1970???Age:54 Y???Sex:Female Address:[address] [place] [address], [place] [address] Subjective: * Chief Complaints: * ???EMR-Dandre * Medical History:? * Surgical History:? * Hospitalization/Major Diagno stic Procedure:? * Family History:?Migrated Fam chuck History: : Diabetes, H eart disease.? * Social History:?Migrated Social History:?Migrated Social History: Alcoholic beverages? - No, C urrently on disability? - Yes, D rug or substance abuse? - No, I nvolved in any legal proceedings or lawsuits? - No, M arital Status - , P articipation in detoxification or rehabilitation - No, S moking - No, W orking currently? - No. * Medications:?TakingKlor-Con , Notes to Pharmacist: *Pick strength-form from [facility] for eRX*Omeprazole , Notes to Pharmacist: *Pick strength-form from [facility] for eRX*Baclofen , Notes to Pharmacist: *Pick strength-form from [facility] for eRX*Ramipril , Notes to Pharmacist: *Pick strength-form from [facility] for eRX*CELECOXIB 50MG CAP TAKE 1 CAPSULE BY MOUTH TWICE DAILY , Notes to Pharmacist: *Reorder from [facility] for eRx and Interaction Alerts*tamsulosin , Notes to Pharmacist: *Reorder from [facility] for eRx and Interaction Alerts*Ventolin HFA , Notes to Pharmacist: *Pick strength-form from [facility] for eRX*Gabapentin , Notes to Pharmacist: *Pick strength-form from [facility] for eRX*Sertraline , Notes to Pharmacist: *Reorder from [facility] for eRx and Interaction Alerts*Metoprolol Tartrate , Notes to Pharmacist: *Pick strength-form from [facility] for eRX*Aspirin , Notes to Pharmacist: *Pick strength-form from [facility] for eRX*thiamine HCl (vitamin B1) , Notes to Pharmacist: *Reorder from [facility] for eRx and Interaction Alerts*Magnesium Oxide , Notes to Pharmacist: *Pick strength-form from [facility] for eRX*trazodone , Notes to Pharmacist: *Reorder from [facility] for eRx and Interaction Alerts*Folic Acid , Notes to Pharmacist: *Pick strength-form from [facility] for eRX*Lantus Solostar U-100 Insulin , Notes to Pharmacist: *Reorder from [facility] for eRx and Interaction Alerts*Levothyroxine , Notes to Pharmacist: *Reorder from [facility] for eRx and Interaction Alerts*atorvastatin , Notes to Pharmacist: *Reorder from [facility] for eRx and Interaction Alerts*Methocarbamol , Notes to Pharmacist: *Pick strength-form from [facility] for eRX*Taking Klor-Con , Notes to Pharmacist: *Pick strength-form from [facility] for eRX*Taking Omeprazole , Notes to Pharmacist: *Pick strength-form from [facility] for eRX*Taking Baclofen , Notes to Pharmacist: *Pick strength-form from [facility] for eRX*Taking Ramipril , Notes to Pharmacist: *Pick strength-form from [facility] for eRX*Taking CELECOXIB 50MG CAP TAKE 1 CAPSULE BY MOUTH TWICE DAILY , Notes to Pharmacist: *Reorder from [facility] for eRx and Interaction Alerts*Taking tamsulosin , Notes to Pharmacist: *Reorder from [facility] for eRx and Interaction Alerts*Taking Ventolin HFA , Notes to Pharmacist: *Pick strength-form from [facility] for eRX*Taking Gabapentin , Notes to Pharmacist: *Pick strength-form from [facility] for eRX*Taking Sertraline , Notes to Pharmacist: *Reorder from [facility] for eRx and Interaction Alerts*Taking Metoprolol Tartrate , Notes to Pharmacist: *Pick strength-form from [facility] for eRX*Taking Aspirin , Notes to Pharmacist: *Pick strength-form from [facility] for eRX*Taking thiamine HCl (vitamin B1) , Notes to Pharmacist: *Reorder from [facility] for eRx and Interaction Alerts*Taking Magnesium Oxide , Notes to Pharmacist: *Pick strength-form from [facility] for eRX*Taking trazodone , Notes to Pharmacist: *Reorder from [facility] for eRx and Interaction Alerts*Taking Folic Acid , Notes to Pharmacist: *Pick strength-form from [facility] for eRX*Taking Lantus Solostar U-100 Insulin , Notes to Pharmacist: *Reorder from [facility] for eRx and Interaction Alerts*Taking Levothyroxine , Notes to Pharmacist: *Reorder from [facility] for eRx and Interaction Alerts*Taking atorvastatin , Notes to Pharmacist: *Reorder from [facility] for eRx and Interaction Alerts*Taking Methocarbamol , Notes to Pharmacist: *Pick strength-form from [facility] for eRX* Objective: * Vitals:? * Physical Examination:? Assessment: Plan: * Treatment: * Procedure Codes:? * * Date:?
[2024-04-05] VITALS (27 sets, daily range): BP systolic 148–192; BP diastolic 72–104; PULSE 57–160; RESP 8–20; TEMP 36.2–37.1; O2SAT 90–100; BMI 31.5
--- OUTSIDE RECORDS SUMMARY | 2024-04-05 05:35 | XMS_ITS ---
Laboratory report Created on: January 16, 2024 YOBANY OQUENDO : 1970 Sex: Female Author Name MAURICE BAEZA SIMTEK Unknown PROBLEMS Problems List Code Description E11.65 RESULTS Laboratory Orders Date Order Code Test 2022-03-25 170418 ALBUMIN/CREATINI NE RATIO,URINE Laboratory Results Date LOINC Test Value Unit Reference Range Interpre tation 2022-03-25 2161-8 CREATININE, URINE 140.7 MG/DL 2022-03-25 22928-1 ALBUMIN, URINE 1442.5 UG/ML 2022-03-25 9318-7 ALB/CREAT RATIO 1025 MG/G CREAT 0-29 H
--- OUTSIDE RECORDS SUMMARY | 2024-04-05 05:35 | XMS_ITS ---
Laboratory report Created on: January 16, 2024 YOBANY OQUENDO : 1970 Sex: Female Author Name JESSICA PASTOR Unknown PROBLEMS Problems List Code Description M25.50 RESULTS Laboratory Orders Date Order Code Test 2022-06-07 192120 PROTHROMBIN TIME (PT) 2022-06-07 [id number] SEDIMENTATION RA TE-WESTERGREN 2022-06-07 456293 C-REACTIVE PROTE IN, QUANT 2022-06-07 [id number] CBC WITH DIFFERE NTIAL/PLATELET Laboratory Results Date LOINC Test Value Unit Reference Range Interpre tation 2022-06-07 6301-6 INR 1.3 0.9-1.2 H 2022-06-07 5902-2 PROTHROMBIN TIME 13 SEC 9.1-12.0 H 2022-06-07 4537-7 SEDIMENTATION RATE-WESTERGREN 21 MM/HR 0-40 2022-06-07 1988-5 C-REACTIVE PROTE IN, QUANT 14 MG/L 0-10 H 2022-06-07 6690-2 WBC 5.4 X10E3/UL 3.4-10.8 2022-06-07 789-8 RBC 3.88 X10E6/UL 3.77-5.28 2022-06-07 718-7 HEMOGLOBIN 12 G/DL 11.1-15.9 2022-06-07 4544-3 HEMATOCRIT 36 % 34.0-46.6 2022-06-07 787-2 MCV 93 FL 79-97 2022-06-07 785-6 MCH 30.9 PG 26.6-33.0 2022-06-07 786-4 MCHC 33.3 G/DL 31.5-35.7 2022-06-07 788-0 RDW 13.3 % 11.7-15.4 2022-06-07 777-3 PLATELETS 97 X10E3/UL 150-450 LL 2022-06-07 770-8 NEUTROPHILS 76 % 2022-06-07 736-9 LYMPHS 12 % 2022-06-07 5905-5 MONOCYTES 9 % 2022-06-07 713-8 EOS 2 % 2022-06-07 706-2 BASOS 1 % 2022-06-07 751-8 NEUTROPHILS (ABSOLUTE) 4.1 X10E3/UL 1.4-7.0 2022-06-07 731-0 LYMPHS (ABSOLUTE) .7 X10E3/UL 0.7-3.1 2022-06-07 742-7 MONOCYTES(ABSOLUTE) .5 X10E3/UL 0.1-0.9 2022-06-07 711-2 EOS (ABSOLUTE) .1 X10E3/UL 0.0-0.4 2022-06-07 704-7 BASO (ABSOLUTE) 0 X10E3/UL 0.0-0.2 2022-06-07 26041-7 IMMATURE GRANULOCYTES 0 % 2022-06-07 78918-2 IMMATURE GRANS (ABS) 0 X10E3/UL 0.0-0.1 2022-06-07 81145-7 HEMATOLOGY COMMENTS: NOTE
--- OUTSIDE RECORDS SUMMARY | 2024-04-05 05:35 | XMS_ITS ---
Laboratory report Created on: January 16, 2024 YOBANY OQUENDO : 1970 Sex: Female Author Name MAURICE BAEZA Organization Unknown PROBLEMS Problems List Code Description E03.9 RESULTS Laboratory Orders Date Order Code Test 2022-04-01 [id number] POTASSIUM Laboratory Results Date LOINC Test Value Unit Reference Range Interpre tation 2022-04-01 2823-3 POTASSIUM 3.4 MMOL/L 3.5-5.2 L
--- OUTSIDE RECORDS SUMMARY | 2024-04-05 05:35 | XMS_ITS ---
Laboratory report Created on: January 16, 2024 YOBANY OQUENDO : 1970 Sex: Female Author Name MAURICE BAEZA Carbon Salon Unknown PROBLEMS Problems List Code Description I10 RESULTS Laboratory Orders Date Order Code Test 2022-04-11 [id number] MAGNESIUM 2022-04-11 [id number] COMP. METABOLIC PANEL (14) Laboratory Results Date LOINC Test Value Unit Reference Range Interpre tation 2022-04-11 28621-4 MAGNESIUM 1.8 MG/DL 1.6-2.3 2022-04-11 2345-7 GLUCOSE 75 MG/DL 70-99 2022-04-11 3094-0 BUN 10 MG/DL 6-24 2022-04-11 2160-0 CREATININE 1.03 MG/DL 0.57-1.00 H 2022-04-11 42872-7 EGFR 65 ML/MIN/1.73 >59 2022-04-11 3097-3 BUN/CREATININE RATIO 10 9-23 2022-04-11 2951-2 SODIUM 136 MMOL/L 727-021 0235-12-08 2823-3 POTASSIUM 4.2 MMOL/L 3.5-5.2 2022-04-11 2075-0 CHLORIDE 95 MMOL/L 96-106 L 2022-04-11 2028-9 CARBON DIOXIDE, TOTAL 25 MMOL/L 20-29 2022-04-11 53780-9 CALCIUM 10.7 MG/DL 8.7-10.2 H 2022-04-11 2885-2 PROTEIN, TOTAL 8.2 G/DL 6.0-8.5 2022-04-11 1751-7 ALBUMIN 4.8 G/DL 3.8-4.9 2022-04-11 30804-3 GLOBULIN, TOTAL 3.4 G/DL 1.5-4.5 2022-04-11 1759-0 A/G RATIO 1.4 1.2-2.2 2022-04-11 1975-2 BILIRUBIN, TOTAL .7 MG/DL 0.0-1.2 2022-04-11 6768-6 ALKALINE PHOSPHATASE 150 IU/L 44-121 H 2022-04-11 1920-8 AST (SGOT) 46 IU/L 0-40 H 2022-04-111741-6 ALT (SGPT) 20 IU/L 0-32
--- OUTSIDE RECORDS SUMMARY | 2024-04-05 05:35 | XMS_ITS ---
Laboratory report Created on: January 16, 2024 YOBANY OQUENDO : 1970 Sex: Female Author Name MAURICE BAEZA Unknown PROBLEMS Problems List Code Description E11.65 E03.9 E78.2 R74.8 RESULTS Laboratory Orders Date Order Code Test 2022-03-20 [id number] VITAMIN B12 2022-03-20 854188 ETHANOL, BLOOD 2022-03-20 967229 HEMOGLOBIN A1C 2022-03-20 742295 CMP14+CBC/D/PLT+ TSH 2022-03-20 100925 LIPID PANEL W/ C HOL/HDL RATIO Laboratory Results Date LOINC Test Value Unit Reference Range Interpre tation 2022-03-20 2132-9 VITAMIN B12 605 PG/ML 232-1245 2022-03-20 64272-3 ETHANOL .276 % 2022-03-20 4548-4 HEMOGLOBIN A1C 7.6 % 4.8-5.6 H 2022-03-20 2345-7 GLUCOSE 178 MG/DL 70-99 H 2022-03-20 3094-0 BUN 22 MG/DL 6-24 2022-03-20 2160-0 CREATININE 1.2 MG/DL 0.57-1.00 H 2022-03-20 30572-6 EGFR 54 ML/MIN/1.73 >59 L 2022-03-20 3097-3 BUN/CREATININE RATIO 18 9-23 2022-03-20 2951-2 SODIUM 139 MMOL/L 823-207 6321-11-16 2823-3 POTASSIUM 2.8 MMOL/L 3.5-5.2 L 2022-03-20 2075-0 CHLORIDE 93 MMOL/L 96-106 L 2022-03-20 2028-9 CARBON DIOXIDE, TOTAL 21 MMOL/L 20-29 2022-03-20 79254-3 CALCIUM 9.7 MG/DL 8.7-10.2 2022-03-20 2885-2 PROTEIN, TOTAL 8.1 G/DL 6.0-8.5 2022-03-20 1751-7 ALBUMIN 4.7 G/DL 3.8-4.9 2022-03-20 78279-2 GLOBULIN, TOTAL 3.4 G/DL 1.5-4.5 2022-03-20 1759-0 A/G RATIO 1.4 1.2-2.2 2022-03-20 1975-2 BILIRUBIN, TOTAL .3 MG/DL 0.0-1.2 2022-03-20 6768-6 ALKALINE PHOSPHATASE 105 IU/L 44-121 2022-03-20 1920-8 AST (SGOT) 112 IU/L 0-40 H 2022-03-20 1742-6 ALT (SGPT) 54 IU/L 0-32 H 2022-03-20 07085-0 TSH 3.93 UIU/ML 0.450-4.500 2022-03-20 6690-2 WBC 7.7 X10E3/UL 3.4-10.8 2022-03-20 789-8 RBC 4.69 X10E6/UL 3.77-5.28 2022-03-20 718-7 HEMOGLOBIN 15.1 G/DL 11.1-15.9 2022-03-20 4544-3 HEMATOCRIT 43.1 % 34.0-46.6 2022-03-20 787-2 MCV 92 FL 79-97 2022-03-20 785-6 MCH 32.2 PG 26.6-33.0 2022-03-20 786-4 MCHC 35 G/DL 31.5-35.7 2022-03-20 788-0 RDW 12.3 % 11.7-15.4 2022-03-20 777-3 PLATELETS 272 X10E3/UL 247-017 2184-11-16 770-8 NEUTROPHILS 68 % 2022-03-20 736-9 LYMPHS 18 % 2022-03-20 5905-5 MONOCYTES 11 % 2022-03-20 713-8 EOS 1 % 2022-03-20 706-2 BASOS 2 % 2022-03-20 751-8 NEUTROPHILS (ABSOLUTE) 5.3 X10E3/UL 1.4-7.0 2022-03-20 731-0 LYMPHS (ABSOLUTE) 1.4 X10E3/UL 0.7-3.1 2022-03-20 742-7 MONOCYTES(ABSOLUTE) .8 X10E3/UL 0.1-0.9 2022-03-20 711-2 EOS (ABSOLUTE) .1 X10E3/UL 0.0-0.4 2022-03-20 704-7 BASO (ABSOLUTE) .1 X10E3/UL 0.0-0.2 2022-03-20 68274-7 IMMATURE GRANULOCYTES 0 % 2022-03-20 92758-7 IMMATURE GRANS (ABS) 0 X10E3/UL 0.0-0.1 2022-03-203-3 CHOLESTEROL, TOTAL 254 MG/DL 100-199 H 2022-03-20 2571-8 TRIGLYCERIDES 240 MG/DL 0-149 H 2022-03-20 2085-9 HDL CHOLESTEROL 74 MG/DL >39 2022-03-20 28213-6 VLDL CHOLESTEROL AUNG 42 MG/DL 5-40 H 2022-03-20 38293-5 LDL CHOL CALC ([facility]) 138 MG/DL 0-99 H 2022-03-20 9830-1 T CHOL/HDL RATIO 3.4 RATIO 0.0-4.4
--- OUTSIDE RECORDS SUMMARY | 2024-04-05 05:35 | XMS_ITS ---
Laboratory report Created on: January 16, 2024 JEREYOBANY Dill : 1970 Sex: Female Author Name MAURICE BAEZA [employer] Unknown PROBLEMS Problems List Code Description I10 R74.8 RESULTS Laboratory Orders Date Order Code Test 2022-05-13 [id number] PROTHROMBIN TIME (PT) 2022-05-13 862012 COMP. METABOLIC PANEL (14) 2022-05-13 835117 CBC WITH DIFFERE NTIAL/PLATELET 2022-05-13 099016 LIPASE 2022-05-13 741941 AMYLASE Laboratory Results Date LOINC Test Value Unit Reference Range Interpre tation 2022-05-13 6301-6 INR 1.2 0.9-1.2 2022-05-13 5902-2 PROTHROMBIN TIME 12.6 SEC 9.1-12.0 H 2022-05-13 2345-7 GLUCOSE 234 MG/DL 70-99 H 2022-05-13 3094-0 BUN 30 MG/DL 6-24 H 2022-05-13 2160-0 CREATININE 2.46 MG/DL 0.57-1.00 H 2022-05-13 72832-3 EGFR 23 ML/MIN/1.73 >59 L 2022-05-13 3097-3 BUN/CREATININE RATIO 12 9-23 2022-05-13 2951-2 SODIUM 130 MMOL/L 134-144 L 2022-05-13 2823-3 POTASSIUM 4.2 MMOL/L 3.5-5.2 2022-05-13 2075-0 CHLORIDE 90 MMOL/L 96-106 L 2022-05-13 2028-9 CARBON DIOXIDE, TOTAL 21 MMOL/L 20-29 2022-05-13 77008-0 CALCIUM 10.5 MG/DL 8.7-10.2 H 2022-05-13 2885-2 PROTEIN, TOTAL 8.2 G/DL 6.0-8.5 2022-05-13 1751-7 ALBUMIN 4.9 G/DL 3.8-4.9 2022-05-13 32381-1 GLOBULIN, TOTAL 3.3 G/DL 1.5-4.5 2022-05-13 1759-0 A/G RATIO 1.5 1.2-2.2 2022-05-13 1975-2 BILIRUBIN, TOTAL .7 MG/DL 0.0-1.2 2022-05-13 6768-6 ALKALINE PHOSPHATASE 139 IU/L 44-121 H 2022-05-13 1920-8 AST (SGOT) 196 IU/L 0-40 H 2022-05-13 1742-6 ALT (SGPT) 89 IU/L 0-32 H 2022-05-13 6690-2 WBC 7.7 X10E3/UL 3.4-10.8 2022-05-13 789-8 RBC 4.14 X10E6/UL 3.77-5.28 2022-05-13 718-7 HEMOGLOBIN 13.3 G/DL 11.1-15.9 2022-05-13 4544-3 HEMATOCRIT 38.1 % 34.0-46.6 2022-05-13 787-2 MCV 92 FL 79-97 2022-05-13 785-6 MCH 32.1 PG 26.6-33.0 2022-05-13 786-4 MCHC 34.9 G/DL 31.5-35.7 2022-05-13 788-0 RDW 12.6 % 11.7-15.4 2022-05-13 777-3 PLATELETS 279 X10E3/UL 811-707 8083-01-09 770-8 NEUTROPHILS 67 % 2022-05-13 736-9 LYMPHS 16 % 2022-05-13 5905-5 MONOCYTES 13 % 2022-05-13 713-8 EOS 2 % 2022-05-13 706-2 BASOS 1 % 2022-05-13 751-8 NEUTROPHILS (ABSOLUTE) 5.2 X10E3/UL 1.4-7.0 2022-05-13 731-0 LYMPHS (ABSOLUTE) 1.2 X10E3/UL 0.7-3.1 2022-05-13 742-7 MONOCYTES(ABSOLUTE) 1 X10E3/UL 0.1-0.9 H 2022-05-13 711-2 EOS (ABSOLUTE) .1 X10E3/UL 0.0-0.4 2022-05-13 704-7 BASO (ABSOLUTE) .1 X10E3/UL 0.0-0.2 2022-05-13 14578-3 IMMATURE GRANULOCYTES 1 % 2022-05-13 49868-0 IMMATURE GRANS (ABS) .1 X10E3/UL 0.0-0.1 2022-05-13 3040-3 LIPASE 29 U/L 14-72 2022-05-13 1798-8 AMYLASE 59 U/L 31-110
[2024-04-05] MEDS: acetaminophen 1,000 MG/100 ML PIGGYBACK 400 MG IV ×3 (06:30→23:20)
[2024-04-05] MEDS: lactated ringers 500 ML IV (06:30)
--- NOTE | 2024-04-05 06:33 | P.ANESASSM_ITS ---
Pre-Anesthetic Assessment Height/Weight: Height 5 ft 3 in Weight 178 lb Temp Pulse Resp BP Pulse Ox O2 Del Method 97.1 F L 86 18 153/104 97 Room Air 04/05/24 06:11 04/05/24 06:11 04/05/24 06:11 04/05/24 06:11 04/05/24 06:11 04/05/24 06:13 Preop Diagnosis: Hip arthritis Operation Date: 04/05/24 07:00 Proposed Procedures p total hip arthroplasty with PK -anterior approach.(Left) - Grover Robbins DO Last intake: Intake Last Liquid Date 04/04/24 Last Liquid Time 20:00 Last Solid Date 04/04/24 Last Solid Time 12:00 Social No alcohol and No tobacco Exam alert, oriented x 3, clear to auscultation bilaterally and regular rate & rhythm Anesthetic Plan ASA status: 3 Anesthesia: General Other: No prior issues with anesthesia, patient had a MILY in October 2023 under [place] without issues NPO since yesterday History of type 2 diabetes, on insulin. Patient is also on dulaglutide, last taken 03/21/2024 Hypertension on ramipril and metoprolol Hypothyroidism on Synthroid GERD on Pepcid Labs reviewed 03/24/2024. K+ 3.2 at that time Plan for GA Medications/Allergies Home Medications Medication Instructions Recorded Confirmed Last Taken Type albuterol sulfate 90 mcg/actuation 2 inh inhalation Q4H PRN shortness 07/14/19 03/31/24 Unknown Rx aerosol inhaler of breath or wheezing #18 grams metoprolol tartrate 25 mg tablet 25 mg PO BID 11/11/19 03/31/24 04/04/24 History insulin aspart U-100 100 unit/mL 10 unit SUBCUT BID PRN DIABETES 05/03/22 03/31/24 04/04/24 History (3 mL) subcutaneous pen (Novolog FlexPen U-100 Insulin aspart) levothyroxine 25 mcg capsule 25 mcg PO DAILY 09/04/22 03/31/24 04/04/24 History ramipril 2.5 mg capsule (Altace) 2.5 mg PO BID 10/23/22 03/31/24 04/04/24 History acetaminophen 500 mg tablet 500 mg PO BID fever or pain 06/23/23 03/31/24 03/31/24 History (Tylenol Extra Strength) atorvastatin 40 mg tablet 40 mg PO DAILY 06/23/23 03/31/24 04/04/24 History famotidine 20 mg tablet (Acid 20 mg PO DAILY 06/23/23 03/31/24 04/04/24 History 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)) baclofen 10 mg tablet 10 mg PO TID 07/29/23 03/31/24 04/04/24 History dulaglutide 0.75 mg/0.5 mL 0.75 mg SUBCUT .weekly diabetes 08/19/23 03/31/24 03/21/24 History subcutaneous pen injector (Trulicity) diabetic shoes with 3 inserts #1 ea 10/13/23 03/23/24 Unknown Rx empagliflozin 10 mg tablet 10 mg PO DAILY 10/28/23 03/31/24 03/31/24 History (Jardiance) furosemide 20 mg tablet 20 mg PO DAILY PRN Only with 10/31/23 03/31/24 04/04/24 Rx weight gain #10 tabs potassium chloride 10 mEq 10 meq PO DAILY Only when you take 02/05/24 03/31/24 04/04/24 History tablet,extended release Lasix quetiapine 25 mg tablet (Seroquel) 25 mg PO BEDTIME #30 tabs 02/05/24 03/31/24 04/04/24 Rx trazodone 50 mg tablet 50 mg PO BEDTIME PRN sleep #30 tabs 02/05/24 03/31/24 04/04/24 Rx insulin glargine 100 unit/mL (3 50 unit SUBCUT BID 03/24/24 03/31/24 04/04/24 History mL) subcutaneous pen (Lantus Solostar U-100 Insulin) Allergies Allergy/AdvReac Type Severity Reaction Status Date / Time No Known Allergies Allergy Verified 03/24/24 09:45 Current Medications Generic Name Dose Route Start Last Admin Trade Name Freq PRN Reason Stop Dose Admin Lactated Ringer's 500 mls @ 500 mls/hr 04/05/24 05:57 04/05/24 06:30 Lactated Ringers IV 04/05/24 06:56 500 mls/hr .Q1H ONE Administration PFSH Anesthesia Medical History Expected bereavement due to life event of 9.5 years on 12/30/23 Marijuana dependence Thrombocytopenia Postoperative anemia Peripheral neuropathy COPD (chronic obstructive pulmonary disease) Obstructive sleep apnea Emphysema lung Alcohol dependence with alcohol-induced persisting dementia Psychiatric care HTN (hypertension) Type 2 diabetes mellitus FREDY (obstructive sleep apnea) Hypercholesteremia Hypothyroidism (acquired) GERD (gastroesophageal reflux disease) Kidney stone Surgical History S/P total right hip arthroplasty Family History Other Atrial fibrillation CAD (coronary artery disease) Diabetes Hyperlipidemia Hypertension Social History Smoking and tobacco/nicotine status: never used tobacco/nicotine Second hand smoke exposure: Yes Alcohol intake: current Alcohol intake frequency: holidays/special occasions only Substance/Drug Use: never Lives independently: Yes Household members: spouse Marital status: Current occupational status: employed Current occupational exposures/hazards: No Do you think of yourself as: Straight/Heterosexual Current gender identity: Female Female Reproductive History Date of last menstrual period: 10/17/21 Data Anesthesia Cardiac Studies: Echocardiogram 05/03/22 Echocardiogram Ultrasound 11/24/19
[2024-04-05 06:34] LABS: Glucose Point of Care 127 mg/dL (70-110)
[2024-04-05] MEDS: scopolamine 1.5 Patch 1 PATCH TRANSDERMA ×2 (06:41→21:40)
[2024-04-05] MEDS: ketorolac 30 mg/mL INJ IVP (06:41)
[2024-04-05 06:46] LABS: Basophils # 0.1 10^3/uL (0.0-0.1); Basophils % 1.9 %; Eosinophils # 0.1 10^3/uL (0.0-0.8); Eosinophils % 2.1 %; Hematocrit 40.2 % (36-47); Lymphocytes % 41.4 %; Mean Corpuscular HGB Conc 31.1 g/dL (30-55); Mean Corpuscular Hemoglobin 28.7 pg (27-33); Mean Corpuscular Volume 92.4 fl (85-98); Mean Platelet Volume 10.7 fL (7.4-10.4); Monocytes # 0.3 10^3/uL (0.2-0.9); Monocytes % 6.6 %; Neutrophils # 2.31 10^3/uL (1.8-7.7); Neutrophils % 47.8 %; Nucleated Red Blood Cells % 0 %; Platelet Count 209 10^3/cmm (157-399); Red Blood Count 4.35 10^6/uL (3.85-5.65); White Blood Count 4.83 10^3/uL (3.29-11.43)
--- NOTE | 2024-04-05 06:55 | W.PM.OPSUD ---
Surgery/Procedure H&P Update DATE OF PROCEDURE: April 05, 2024 DATE H&P PERFORMED: 03/23/24 H&P UPDATE INFORMATION: I have reviewed H&P completed within last 30 days, I have examined patient prior to procedure and No changes to prior documentation PREOP DIAGNOSIS: Left Hip arthritis PRIMARY INDICATION FOR PROCEDURE: Left hip arthritis PLANNED PROCEDURE: Operation Date: 04/05/24 07:00 Proposed Procedures p total hip arthroplasty with PK -anterior approach.(Left) - Grover Robbins DO
[2024-04-05 07:06] LABS: Anion Gap 19.1 (5-19); Blood Urea Nitrogen 19 mg/dL (6-20); Calcium 9.5 mg/dL (8.5-10.5); Carbon Dioxide 24 mmol/L (22-29); Chloride 105 mmol/L (98-107); Creatinine Clr Calc Pharmacy 70.2272; Glomerular Filtration Rate 64.8 mL/min (90-130); Glucose 132 mg/dL (65-115); Osmolality Calculated 302 mOsm/kg (285-295); Potassium 4.1 mmol/L (3.5-5.1); Sodium 144 mmol/L (136-145)
[2024-04-05] MEDS: ceFAZolin 2,000 MG in sodium chloride 0.9% (plus) 50 ML 100 MG IV ×3 (07:09→23:28)
[2024-04-05] MEDS: sodium chloride 0.9% 1,000 ML 30 ML IV (07:11)
[2024-04-05] MEDS: tranexamic acid 1,000 mg/10mL SDV 1000 MG IV (07:34)
[2024-04-05] MEDS: lidocaine-epi 1% 20 mL INJ INJECTION (08:07)
[2024-04-05] MEDS: VANCOMYCIN ADD-Vantage 1,000 MG VIAL 1000 MG XX (08:09)
--- NOTE | 2024-04-05 10:44 | W.PM.BPON ---
Date of Procedure: [January 05, 2024] Surgeon: [Dr. Robbins DO] Search Engine Marketing Strategist(s): [Phil Robbins PA-C] Procedure(s) performed: [Left total hip arthroplasty with [place] robotic assist (anterior approach)] Findings of the procedure(s): [Left hip degenerative joint disease. Procedure went well and as planned.] Estimated blood loss: [200 mL] Specimen(s) removed: [Femoral head] Post-operative diagnosis: [Left hip degenerative joint disease]
--- NOTE | 2024-04-05 10:49 | XR_ITS ---
WS: [id number] XR hip LT 2-3V wo/w pel* [id number] REASON FOR EXAM: post op MILY left FINDINGS: Total left hip arthroplasty. The components of the arthroplasty are intact and in proper position and alignment. There is no focal bone abnormality. XR/XR hip LT 2-3V wo/w pel* [id number] IMPRESSION: Total left hip arthroplasty without abnormality.
--- NOTE | 2024-04-05 10:50 | PM.OP ---
Operative Report Date of procedure: April 05, 2024 Surgeon: Grover Robbins DO Child Caregiver: Phil Robbins PA-C: PA was necessary for assistance in this case with leg positioning, reductions, retraction and protection of neurovascular structures as well as assistance in implantation wound closure and dressing application. Procedure: Preoperative diagnosis: Left Hip degenerative joint disease Post-op diagnosis: Same Procedure done: Left total hip arthroplasty?Lincoln robotic assisted?anterior?approach Implants: [place] Trident acetabular shell size 50 mm Katarina acetabular screws 25, 25,15mm Accolade II 127 degree size 5? femur stem Trident 0 degree polyethylene 36 degree inner diameter 36 mm femoral head ceramic +2.5 mm Surgeon: Grover Robbins DO Anesthesia: Other (Spinal) Estimated blood loss: 200 mL IV fluids: 1700 mL Complications: None Findings: See operative report narrative Condition: stable Disposition: floor Brief History: Patient is a 54-year-old female presented to my outpatient office setting findings consistent with gtvu-[id number] arthritis advanced degenerative joint disease of the left hip.? We talked about treatment options as far as nonoperative and operative intervention. Pt has failed conservative treatment.? Patient's left hip degenerative joint disease has been so severe pain and decreased range of motion.? we talked about treatment options at this point time pt understands the risk benefits complication alternatives surgical nonsurgical treatment options.? Patient understands the risk of surgery and agrees to proceed.?Pt has had a RIght MILY and done well in recovery. Patient has underwent a preoperative evaluation. Pt cleared for surical intervention. Pt understood and was agreeable to proceed with a left total hip arthroplasty consent was reviewed and signed with patient.?? All questions answered.? Patient will be admitted postoperatively. Procedure: Patient was seen evaluated in the preoperative holding area.? Consent was reviewed and signed with patient.? Correct operative extremity was then marked. ? All questions were answered at this time.? Once cleared by anesthesia used to brought back to the operative suite he then underwent anesthesia per the anesthesia department. The patient was administered tranexamic acid and preop antibiotics, and placed in the supine position. All bony prominences were properly padded, securely fixed to the table, and administered?general?anesthetic. The patient was subsequently transferred from the hospital bed to the [place] table. Bilateral lower extremities were placed in the traction boots. The pelvis was well approximated against the perineal post.? Final timeout performed.? Patient received appropriate preoperative antibiotics. Both hips were then prepped and draped in a normal orthopedic fashion.? Started with a small incision 2 fingerbreadths above the ASIS on the right iliac wing to place? pelvic arrays.? Small incision was made directly down to bone.? 3 pelvic pins were placed with excellent fixation.? The robotic array was secured to the nonoperative iliac wing using sterile technique. The extremity was then definitively draped in standard, sterile fashion.? The array was found to be visible by the robot. ?A standard??anterior?supine approach was performed to the?operative hip joint. The skin was incised down to the tensor fascia mansoor muscle and fascia. Fascia was split longitudinally in line with its fibers. The tensor fascia mansoor muscle was retracted laterally. The appropriate retractors were placed superiorly. Lateral circumflex vessels were identified and appropriately ligated. The hip capsule was then identified.? Appropriate retractors were placed superiorly and inferiorly along the capsule directly onto bone.??That was split longitudinally up to the acetabular rim in line with the femoral neck. The femoral capsule was found to be significantly hypertrophic, thickened, and significantly fibrotic. The capsule was then elevated both superiorly and inferiorly down to the lesser trochanter as well as up towards the greater trochanter.? Tag stitches were applied with 0 Vicryl into the capsule.? Femoral check point was?then inserted and confirmed on the lateral trochanter proximal femur.? A distal marker?of a sterile EKG lead was placed into the distal femur for measurement of leg lengths.? Preoperative leg lengths were registered and confirmed at this point. Next the appropriate-sized neck cut was then performed after being measured with robotic assistance. Femoral head was removed atraumatically this was found to have significant degenerative changes and deformity with significant osteophyte formation.? Femoral head was found to be severely degenerated and flattening with, eburnated bone. Acetabulum was also inspected and was found to have peripheral osteophytes as well as no evidence of cartilage consistent with tzxf-kj-ohyh arthritis.? Appropriate retractors were then placed in the?anterior?and posterior wall.? The remaining labrum was then excised from the periphery of the acetabular rim. Pulvinar was excised.? At this point registration for the Lincoln was performed on the acetabular side and confirmed. Once confirmed, any osteophytes able to be were removed. We planned 40 degrees of lateral opening and 20 degrees of anteversion. At this point, we reamed and medialized to the inner wall of the acetabulum with a size?50?reamer for line to line fit.?The acetabulum was found to have good bleeding bone throughout.?? Reamer removed excellent bleeding bone circumferentially with sufficient?anterior?and posterior wall. ?The definitive acetabular cup 50 mm was inserted and impacted under?Lincoln guidance with the appropriate amount of anteversion and lateral opening. It was then secured with 3x 6.5 mm cancellous screws in appropriate safe zone position.? I subsquently drilled measured and place appropriate length acetabular screws which measured 25 mm and 25 mm, 15mm.? These had excellent fixation final x-rays were taken of the acetabular work and showed a seated and well fixed acetabular cup with appropriate position acetabular screws.? ?Next a 36-mm X3 neutral liner was impacted into the?acetabular shell and secured. Hip was then irrigated with copious amounts of irrigation. At this point, the remaining femoral releases were then performed allowing the adequate mobilization of the?right?femur.? Traction was confirmed to being off to the right lower extremity and the femur was then externally rotated, extended, and adducted giving adequate exposure of the proximal femur in the surgical wound. Box cut was then used to enter the intramedullary canal of the?femur. Canal finder was placed down the canal of the?operative femur. Appropriate-sized broaches from a size 0 up to a size 5 were impacted down the operative femoral canal with the appropriate amount of anteversion.? A multiple trials were attempted and it was found?that?+2.5mm neck was found to be most appropriate for a soft tissue tensioning offset, stability and the leg lengths?that was confirmed with Lincoln. ?Stability was then assessed and excellent stability with patient external rotation of greater?than 90 degrees and traction with no evidence of hip instability.? Appropriate tension noted of the soft tissues. At this point, the hip was relocated.?Lincoln guidance was again used to confirm appropriate leg lengths.? I utilized C arm to evaluate for leg lengths as well I did slightly at the lengthen comparative to the contralateral extremity but this was the appropriate size for patient's stability and excellent soft tissue tensioning as well as this was mapped with her preoperative planning given she had been significantly shortened given her arthritis.? Operative hip was then re-dislocated using a bone hook. All trials were then removed from the?operative femur. Adequate exposure was then once again obtained. The trials were removed. The definitive 127 degree Accolade II stem size 5 was impacted down the?femoral canal with the appropriate amount of anteversion. The appropriate sized head 36 mm ceramic +2.5 mm was impacted onto the trunnion, and the?operative?hip was then relocated with traction and internal rotation. Final measurements were obtained on Lincoln confirming leg lengths and offset.? Once again hip stability was assessed and found to have excellent stability and appropriate soft tissue tensioning.? Hip was irrigated with copious amounts of irrigation.? Vancomycin powder was placed within the wound bed for added infection prophylaxis.? The superior and inferior leaflets of the capsule were then closed with Ethibond suture.? Vicryl tag stitches were removed.? The superficial layer of the tensor fascia mansoor fascia was closed using 0 stratafix suture in a running fashion.? Subcutaneous tissues were closed with running 3-0 Stratafix, skin was closed with 4-0 stratafix.?Surgical Prineo glue and steri strips were?applied and covered with a Gusatvo dressing to the operative side.?The incision on the non-operative side for the robotic array was irrigated and closed with layered fashion of 0 Vicryl, 2-0 Vicryl and running Monocryl suture and surgical glue and covered with Silverlon. ?The patient was subsequently awoken per Anesthesia and transferred to PACU in satisfactory condition. ?Leg lengths and rotational profile were found to be appropriate. ? DISPOSITION: The patient will be admitted to the hospital for initiation of DVT prophylaxis, physical therapy, pain control. The patient is to weight bear as tolerated.?Anterior?hip precautions, postoperative antibiotics,?postoperative TXA and Eliquis?for DVT prophylaxis.? Patient will receive appropriate discharge instructions as well as pain medication postoperatively and will follow up in my office in 2 weeks.? Patient with work with PT/OT.? Internal medicine will be consulted for medical management.
[2024-04-05] MEDS: ondansetron 2 mg/ML SDV 2 mL 4 MG IVP ×3 (10:56→18:35)
--- NOTE | 2024-04-05 10:56 | PM.PACU ---
PACU note Narrative: Patient is a 54-year-old female who just underwent a left total hip arthroplasty. Pt transferred to PACU in stable condition. Dressing is dry. pt is awake and alert. pt can wiggle toes and plantarflex and dorsiflex foot. Distal pulses are palpable toes are warm and well-perfused. Cap refill is normal and under 2 seconds. Sensation to foot is intact. Pain is controlled. Exam: awake Disposition: admitted
--- NOTE | 2024-04-05 11:28 | ANE.PACU2 ---
Inpatient post-anesthesia follow up: Airway intact: Yes Vital signs: Temperature 97.6 F Pulse Rate 160 Respiratory Rate 18 Blood Pressure 156/93 Pulse Oximetry 97 Oxygen Delivery Me thod Nasal Cannula Oxygen Flow Rate 3 Fraction of Inspir ed Oxygen Hydration adequate: Yes Nausea and vomiting: No Pain level: 2 Mental status: Baseline
--- NOTE | 2024-04-05 11:35 | PC.NURSE ---
1130 - pt arrived to room 260 x2 pacu staff - this nurse out to desk to retrieve Charge nurse - BP 171/77 - pulse 74 - 02 96% 2lnc - temp 97.5 - pt in no distress - left hip dressing c/d/i - MARK Sharma accepted pt to floor
--- NOTE | 2024-04-05 12:15 | PC.NURSE ---
Patient does not want to go to [facility] [place] if she discharges to SNF.
--- NOTE | 2024-04-05 12:19 | ECG_ITS ---
Sproom Test Date: 2024-04-05 Pat Name: Bharti Lawrence Department: Room: 260 Gender: Female Creative/Art Director: : [id number] Requested By: Grover Robbins Order Number: [id number] Alexandro MD: Jose Murray M.D. Measurements Intervals [place]vin Rate: 153 P: 0 NH: 0 QRS: 183 QRSD: 82 T: 215 QT: 291 QTc: 464 Interpretive Statements ATRIAL FLUTTER WITH RAPID VENTRICULAR RESPONSE POSSIBLE RIGHT VENTRICULAR HYPERTROPHY [SOME/ALL OF: PROMINENT R IN V1, LATE TRANSITION, RAD, SANDHYA, SSS] LATERAL MYOCARDIAL INFARCTION , AGE INDETERMINATE [40+ ms Q WAVE AND/OR ST/T ABNORMALITY IN I/aVL/V5/V6] Compared to ECG 10/15/2023 10:08:43 Myocardial infarct finding now present Sinus rhythm no longer present Electronically Signed On 04-06-2024 21:41:06 MAGAZINE WORKER by Jose Murray M.D. [email or web address]
--- NOTE | 2024-04-05 12:23 | P.CONIM_ITS ---
Providers/Reason For Consult 2 Consulting Physician/Specialty*: Mulugeta Beal MD Reason for Consult*: Medical management Requesting Physician: Dr. Robbins Attending Physician: Grover Robbins DO Primary Care Provider: Ana Maria Flores MD History of Present Illness History of Present Illness Bharti Lawrence is a 54 year old female who underwent a left total hip arthroplasty today without complications. Estimated blood loss about 200 cc. Had general anesthesia. I have been asked to see her to manage her hypertension, diabetes, and other medical problems while inpatient. Currently she is arousable, denies any complaints. Pain is currently under control. Review of Systems 2 General: Reports: 10 or more systems reviewed and unremarkable except in HPI and below Medications/Allergies Home Medications Medication Instructions Recorded Confirmed Last Taken Type albuterol sulfate 90 mcg/actuation 2 inh inhalation Q4H PRN shortness 07/14/19 03/31/24 Unknown Rx aerosol inhaler of breath or wheezing #18 grams metoprolol tartrate 25 mg tablet 25 mg PO BID 11/11/19 03/31/24 04/04/24 History insulin aspart U-100 100 unit/mL 10 unit SUBCUT BID PRN DIABETES 05/03/22 03/31/24 04/04/24 History (3 mL) subcutaneous pen (Novolog FlexPen U-100 Insulin aspart) levothyroxine 25 mcg capsule 25 mcg PO DAILY 09/04/22 03/31/24 04/04/24 History ramipril 2.5 mg capsule (Altace) 2.5 mg PO BID 10/23/22 03/31/24 04/04/24 History acetaminophen 500 mg tablet 500 mg PO BID fever or pain 06/23/23 03/31/24 03/31/24 History (Tylenol Extra Strength) atorvastatin 40 mg tablet 40 mg PO DAILY 06/23/23 03/31/24 04/04/24 History famotidine 20 mg tablet (Acid 20 mg PO DAILY 06/23/23 03/31/24 04/04/24 History Mail Delivery Supervisor (famotidine)) baclofen 10 mg tablet 10 mg PO TID 07/29/23 03/31/24 04/04/24 History dulaglutide 0.75 mg/0.5 mL 0.75 mg SUBCUT .weekly diabetes 08/19/23 03/31/24 03/21/24 History subcutaneous pen injector (Trulicity) diabetic shoes with 3 inserts #1 ea 10/13/23 03/23/24 Unknown Rx empagliflozin 10 mg tablet 10 mg PO DAILY 10/28/23 03/31/24 03/31/24 History (Jardiance) furosemide 20 mg tablet 20 mg PO DAILY PRN Only with 10/31/23 03/31/24 04/04/24 Rx weight gain #10 tabs potassium chloride 10 mEq 10 meq PO DAILY Only when you take 02/05/24 03/31/24 04/04/24 History tablet,extended release Lasix quetiapine 25 mg tablet (Seroquel) 25 mg PO BEDTIME #30 tabs 02/05/24 03/31/24 04/04/24 Rx trazodone 50 mg tablet 50 mg PO BEDTIME PRN sleep #30 tabs 02/05/24 03/31/24 04/04/24 Rx insulin glargine 100 unit/mL (3 50 unit SUBCUT BID 03/24/24 03/31/24 04/04/24 History mL) subcutaneous pen (Lantus Solostar U-100 Insulin) Allergies Allergy/AdvReac Type Severity Reaction Status Date / Time No Known Allergies Allergy Verified 03/24/24 09:45 PFSH Acute 2 PFSH: Medical History (Updated 04/05/24 @ 12:34 by Mulugeta Beal MD) COPD (chronic obstructive pulmonary disease) Type 2 diabetes mellitus Expected bereavement due to life event of 9.5 years on 12/30/23 Marijuana dependence Thrombocytopenia Postoperative anemia Peripheral neuropathy Obstructive sleep apnea Emphysema lung Alcohol dependence with alcohol-induced persisting dementia Psychiatric care HTN (hypertension) FREDY (obstructive sleep apnea) Hypercholesteremia Hypothyroidism (acquired) GERD (gastroesophageal reflux disease) Kidney stone Surgical History S/P total right hip arthroplasty Family History Other Atrial fibrillation CAD (coronary artery disease) Diabetes Hyperlipidemia Hypertension Social History Smoking and tobacco/nicotine status: never used tobacco/nicotine Second hand smoke exposure: Yes Alcohol intake: current Alcohol intake frequency: holidays/special occasions only Substance/Drug Use: never Lives independently: Yes Household members: spouse Marital status: Current occupational status: employed Current occupational exposures/hazards: No Do you think of yourself as: Straight/Heterosexual Current gender identity: Female Female Reproductive History: Date of last menstrual period: 10/17/21 Vitals/I&O/Wt Last Vital Signs Temp 98.6 F 04/05/24 11:11 Pulse 73 04/05/24 11:26 Resp 13 04/05/24 11:26 BP 177/85 04/05/24 11:26 Pulse Ox 96 04/05/24 11:26 O2 Del Method Nasal Cannula 04/05/24 11:26 O2 Flow Rate 3 04/05/24 11:26 04/04/24 04/05/24 04/05/24 22:59 06:59 14:59 Intake Total 100 / 100 2300 / 2300 Output Total 400 / 400 Balance 100 / 100 1900 / 1900 Weight last 48 hrs Weight 80.739 kg Physical Exam 2 Narrative: General Exam is white female, no distress HEENT: Atraumatic normocephalic. Oropharynx clear Neck is supple Cardiovascular regular rate and rhythm, no murmur Lungs clear Abdomen is soft, nontender Extremities no cyanosis clubbing or edema, dressing present clean and dry left lower extremity Skin no rash Neuro no obvious focal deficits Data 04/05/24 06:33 04/05/24 06:33 Other Labs: X-ray reviewed. Left total hip arthroplasty noted. A&P Assessment and plan (1) Degenerative joint disease of left hip: Directly postoperative left hip arthroplasty, without complication Eliquis will be used for DVT prophylaxis (2) Type 2 diabetes mellitus: Consistent carb diet Insulin sliding scale, mild (3) HTN (hypertension): Continue home medication of Altace, metoprolol. (4) COPD (chronic obstructive pulmonary disease): DuoNeb as needed (5) Atrial fibrillation: On arrival to the floor, patient was found to be in A-fib with RVR. She reports past history of A-fib. Will go ahead and give metoprolol 5 mg IV. She reports she did not take her metoprolol this morning. In about an hour give her 12.5 mg of metoprolol with vital signs allow, and then resume her 25 twice daily. Placed on telemetry. Check TSH and magnesium level. Full dose anticoagulation with Eliquis. Plan History of alcohol intake. Monitor for any withdrawal. Other medical problems as outlined in past medical history Eliquis will suffice for DVT prophylaxis Thank you for this consultation Consult Attestations 2 Medical Necessity Statement: As per primary Diagnoses Degenerative joint disease of left hip M16.12 Type 2 diabetes mellitus E11.9 HTN (hypertension) I10 COPD (chronic obstructive pulmonary disease) J44.9 Atrial fibrillation I48.91 Time Spent (min) 46
--- NOTE | 2024-04-05 12:26 | PC.NURSE ---
PT ARRIVES TO FLOOR WITH HR OF 150-160. STAT EKG PERFORMED. EKG SHOWS AFIB WITH RVR. ATTEMPTED TO NOTIFY DR. KAUFMAN. METOPROLOL ORDER GIVEN BY DR. JACOBSON.
[2024-04-05] MEDS: metoprolol tartrate 1 mg/1 mL SDV 5 mL 5 MG IVP (12:38)
--- NOTE | 2024-04-05 13:00 | PC.NURSE ---
Pt on telemetry at this time. HR 62.
[2024-04-05 13:21] LABS: Magnesium 2.2 mg/dL (1.7-2.3); Thyroid Stimulating Hormone 3.17 uIU/mL (0.27-4.20)
[2024-04-05] MEDS: oxyCODONE 5 mg IR Tab/Cap PO ×2 (14:30→21:50)
[2024-04-05] MEDS: metoprolol tartrate 25 mg Tablet 12.5 MG PO (14:30)
[2024-04-05] MEDS: tranexamic acid 1,000 MG/100 ML PREMIX 600 MG IV (14:30)
[2024-04-05] MEDS: chlorhexidine gluconate 0.12% Btl 473 mL 30 ML MUCOUS MEM ×3 (14:31→20:42)
[2024-04-05 16:27] LABS: Glucose Point of Care 168 mg/dL (70-110)
[2024-04-05] MEDS: mupirocin oint 22 gm 1 APPLIC NASAL (17:27)
[2024-04-05] MEDS: sennosides-docusate Tablet 2 TAB PO (17:27)
[2024-04-05] MEDS: TRAMadol 50 mg Tablet PO ×2 (17:28→23:19)
[2024-04-05] MEDS: calcium carb-vit d 600mg/400unit 1 Tablet 1 EACH PO (17:28)
[2024-04-05] MEDS: metoprolol tartrate 25 mg Tablet PO (17:28)
[2024-04-05] MEDS: lisinopril 10 mg Tablet PO (17:28)
[2024-04-05] MEDS: iron polysaccharide complex 150 mg Capsule PO (17:28)
[2024-04-05] MEDS: insulin glargine 100 units/1 mL 25 UNIT SUBCUT (17:30)
[2024-04-05] MEDS: HYDROmorphone 1 mg/mL INJ 1 mL 0.5 MG IVP (20:41)
[2024-04-05 20:45] LABS: Glucose Point of Care 177 mg/dL (70-110)
[2024-04-05] MEDS: quetiapine 25 mg Tablet PO (21:40)
[2024-04-05] MEDS: insulin lispro 100 unit/1 mL SUBCUT (21:40)
[2024-04-06] VITALS (16 sets, daily range): BP systolic 116–175; BP diastolic 69–89; PULSE 52–75; RESP 15–18; TEMP 36.3–37; O2SAT 93–99
[2024-04-06] MEDS: lactated ringers 1,000 ML 75 ML IV (02:01)
[2024-04-06] MEDS: HYDROmorphone 1 mg/mL INJ 1 mL 0.5 MG IVP (02:01)
[2024-04-06] MEDS: acetaminophen 1,000 MG/100 ML PIGGYBACK 400 MG IV (06:16)
[2024-04-06] MEDS: oxyCODONE 5 mg IR Tab/Cap PO ×5 (06:16→23:29)
[2024-04-06] MEDS: ceFAZolin 2,000 MG in sodium chloride 0.9% (plus) 50 ML 100 MG IV (06:18)
[2024-04-06 06:23] LABS: Glucose Point of Care 157 mg/dL (70-110)
[2024-04-06 06:29] LABS: Basophils % 0.6 %; Hematocrit 26.3 % (36-47); Lymphocytes # 0.7 10^3/uL (0.8-4.8); Lymphocytes % 15.9 %; Mean Corpuscular HGB Conc 32.7 g/dL (30-55); Mean Corpuscular Hemoglobin 30.6 pg (27-33); Mean Corpuscular Volume 93.6 fl (85-98); Monocytes # 0.4 10^3/uL (0.2-0.9); Monocytes % 9.2 %; Neutrophils # 3.43 10^3/uL (1.8-7.7); Neutrophils % 73.9 %; Nucleated Red Blood Cells % 0 %; Platelet Count 112 10^3/cmm (157-399); Red Blood Count 2.81 10^6/uL (3.85-5.65); Red Cell Distribution Width 14.5 % (12.1-15.1); White Blood Count 4.65 10^3/uL (3.29-11.43)
[2024-04-06 06:51] LABS: Anion Gap 18.6 (5-19); Blood Urea Nitrogen 22 mg/dL (6-20); Calcium 8.7 mg/dL (8.5-10.5); Carbon Dioxide 21 mmol/L (22-29); Chloride 96 mmol/L (98-107); Creatinine Clr Calc Pharmacy 63.3128; Glomerular Filtration Rate 57.4 mL/min (90-130); Glucose 150 mg/dL (65-115); Osmolality Calculated 278 mOsm/kg (285-295); Potassium 4.6 mmol/L (3.5-5.1); Sodium 131 mmol/L (136-145)
[2024-04-06] MEDS: levothyroxine 25 mcg Tablet PO (08:53)
[2024-04-06] MEDS: calcium carb-vit d 600mg/400unit 1 Tablet 1 EACH PO ×2 (08:53→17:27)
[2024-04-06] MEDS: lisinopril 10 mg Tablet PO ×2 (08:53→17:27)
--- NOTE | 2024-04-06 08:53 | P.PN_ITS ---
Subjective 2 Subjective: Reports she has some pain but for the most part controlled. A little shaky this morning. Wanting nursing facility placement. Medications: Reviewed: Yes Vitals/I&O/Wt Last Vital Signs Temp 97.3 F L 04/06/24 07:57 Pulse 72 04/06/24 07:57 Resp 18 04/06/24 07:57 BP 175/73 04/06/24 07:57 Pulse Ox 97 04/06/24 07:57 O2 Del Method Room Air 04/06/24 07:57 O2 Flow Rate 1 04/05/24 13:59 04/05/24 04/06/24 04/06/24 22:59 06:59 14:59 Intake Total 1050 / 3350 270 / 3620 Output Total 850 / 1250 Balance 200 / 2100 270 / 2370 Weight last 48 hrs Weight 81.012 kg Weight 80.739 kg Weight 80.739 kg Physical Exam 2 Narrative: General Exam is white female, no distress. Mild tremor that seems to go away with continued conversation Neck is supple Cardiovascular regular rate and rhythm, no murmur Lungs clear Abdomen is soft, nontender Extremities no cyanosis clubbing or edema, dressing present clean and dry left lower extremity Urinary Catheter Management: Fernandes: Cath Placed During This Visit: yes, but has since been removed by the nurse Reason for Continuing Indwelling Catheter: Decision to DC Catheter Date Urinary Catheter Removed: 04/06/24 Time Urinary Catheter Discontinued: 06:15 Data 04/06/24 05:57 04/06/24 05:57 A&P Assessment and plan (1) Degenerative joint disease of left hip: Postoperative day #1 left hip arthroplasty, without complication Eliquis will be used for DVT prophylaxis Has acute postoperative blood loss anemia. No need for transfusion currently. (2) Type 2 diabetes mellitus: Consistent carb diet Insulin sliding scale, mild (3) HTN (hypertension): Continue home medication of Altace, metoprolol. (4) COPD (chronic obstructive pulmonary disease): DuoNeb as needed (5) Atrial fibrillation: On arrival to the floor, patient was found to be in A-fib with RVR. She reports past history of A-fib. After receiving metoprolol IV, she converted to sinus rhythm. Continue her home metoprolol. TSH and magnesium level were checked and normal. Planning on full dose anticoagulation, but may adjust depending upon INR and liver tests that are pending this morning. Plan History of alcohol intake. Monitor for any withdrawal. Add CIWA protocol Other medical problems as outlined in past medical history Eliquis will suffice for DVT prophylaxis Thank you for this consultation Will continue to follow Attestations 2 Medical Necessity Statement*: As per primary Coding Level of Care Code Acute Code for g Fwd Diagnoses Degenerative joint disease of left hip M16.12 Type 2 diabetes mellitus E11.9 HTN (hypertension) I10 COPD (chronic obstructive pulmonary disease) J44.9 Atrial fibrillation I48.91
[2024-04-06] MEDS: iron polysaccharide complex 150 mg Capsule PO ×2 (08:54→17:27)
[2024-04-06] MEDS: metoprolol tartrate 25 mg Tablet PO ×2 (08:54→17:27)
[2024-04-06] MEDS: atorvastatin 40 mg Tablet PO (08:54)
[2024-04-06] MEDS: sennosides-docusate Tablet 2 TAB PO ×2 (08:54→17:27)
[2024-04-06] MEDS: apixaban 5 mg Tablet PO (08:54)
[2024-04-06] MEDS: multivitamin therapeutic Tablet 1 TAB PO (08:54)
[2024-04-06] MEDS: chlorhexidine gluconate 0.12% Btl 473 mL 30 ML MUCOUS MEM ×4 (08:55→22:27)
[2024-04-06] MEDS: mupirocin oint 22 gm 1 APPLIC NASAL ×2 (08:59→17:28)
[2024-04-06 09:02] LABS: Alanine Aminotransferase 32 U/L (0-33); Albumin Level 3.9 g/dL (3.5-5.2); Alkaline Phosphatase 92 U/L (35-105); Aspartate Amino Transferase 65 U/L (0-32); Globulin 2.5 g/dL (1.3-4.6); Total Bilirubin 0.8 mg/dL (0.15-1.2); Total Protein 6.4 g/dL (6.6-8.7)
[2024-04-06] MEDS: TRAMadol 50 mg Tablet PO ×4 (09:07→22:23)
[2024-04-06] MEDS: folic acid 1 mg Tablet PO (09:08)
--- NOTE | 2024-04-06 10:17 | PC.CHAP ---
Pastoral Care Encounter/Spiritual Assessment Type of Contact [] Declined launch manager visit [] Patient/Family/Request visit [] Outpatient visit [] Follow-up visit [] Physician referral [] Code/Alert [x] Routine visit [] Staff referral [] Actively dying [] Patient sleeping [] Family support [] [] Out of room [] Palliative care [] [] Receiving care in room [] Pre-surgical visit [] Trauma [] Long length of stay [] ICU visit [] Other: Relational/Emotional Strength [x] Patient feels connected with others/family/visitors/staff [] Distress [] Loneliness/isolation [] Abandonment Spirituality of Patient [x] Person of Alea [] Attends Sabianist of their Alea [x] Believes in Prayer [] Reads Bible or Amish materials [] There are Spiritual issues to be addressed Bed Machine Operator Interventions [x] Prayer [x] Active listening [] Non-anxious presence [x] Spiritual/emotional support [] Crisis/trauma care [] Spiritual counseling [] Bereavement support [] Provided bereavement packet [] Provided Bible/devotional materials [] Provided toy/stuffed animal, coloring book to patient or family member [] Provided Communion [] Anointing/[place] [] Salvation [x] Completed spiritual assessment [] Other: Impact on Illness or Injury [] Angry [] Fearful [] Anxious [] Often cries [] Exhaustion [] Unable to work [] Unable to attend yazidism [] Unable to walk/stand [] Unable to read [] Unable to drive [] Unable to eat/drink [] Unable to sleep [] Unable to be with family [] Patient intubated [] Other: Summary Time spent with patient 5 min
[2024-04-06] MEDS: insulin glargine 100 units/1 mL 25 UNIT SUBCUT ×2 (10:51→17:35)
[2024-04-06 10:55] LABS: Glucose Point of Care 245 mg/dL (70-110)
[2024-04-06 10:57] LABS: INR 1.38 (0.8-1.2)
--- NOTE | 2024-04-06 13:02 | P.PN_ITS ---
Subjective 2 Subjective: Patient seen and examined she is having pain but controlled medications she is progressing with therapy at this point in time looking at discharging to a group home facility discharge she will have help at home. Vitals/I&O/Wt Last Vital Signs Temp 98.0 F 04/06/24 12:00 Pulse 64 04/06/24 12:00 Resp 18 04/06/24 12:00 BP 148/89 04/06/24 12:00 Pulse Ox 99 04/06/24 12:00 O2 Del Method Room Air 04/06/24 12:00 O2 Flow Rate 1 04/05/24 13:59 04/05/24 04/06/24 04/06/24 22:59 06:59 14:59 Intake Total 1050 / 3350 270 / 3620 270 / 270 Output Total 850 / 1250 Balance 200 / 2100 270 / 2370 270 / 270 Weight last 48 hrs Weight 178 lb 9.6 oz Weight 178 lb Weight 178 lb Physical Exam 2 Narrative: Examination left hip dressings on in place good seal, normal postoperative swelling, satisfactory leg lengths the right hip dressing is clean dry and intact. She is able to wiggle the toes plantarflex and dorsiflex ankle sensations intact light touch distally. Distal pulses palpable compartments are soft compressible Urinary Catheter Management: Fernandes: Cath Placed During This Visit: yes, but has since been removed by the nurse Reason for Continuing Indwelling Catheter: Decision to DC Catheter Date Urinary Catheter Removed: 04/06/24 Time Urinary Catheter Discontinued: 06:15 Data 04/06/24 05:57 04/06/24 05:57 Xray Ortho: Radiologist's impression: Ordering Provider/Ordering MD: Grover Robbins Date of Service: 04/05/24 Procedure(s): XR hip LT 2-3V wo/w pel* 47883 Accession Number(s): [id number] Report Number: [id number] WS: [id number] XR hip LT 2-3V wo/w pel* [id number] REASON FOR EXAM: post op MIYL left FINDINGS: Total left hip arthroplasty. The components of the arthroplasty are intact and in proper position and alignment. There is no focal bone abnormality. XR/XR hip LT 2-3V wo/w pel* [id number] IMPRESSION: Total left hip arthroplasty without abnormality. A&P Assessment and plan (1) S/P total left hip arthroplasty: Plan Postop day 1 A.m. labs reviewed Postoperative x-rays reviewed stable total hip arthroplasty PT/OT Anterior hip precautions Weight-bear as tolerated left lower extremity Change dressings as needed Pain control Internal medicine on board for medical management Case management for discharge planning Patient at this point in time planning on discharge at rehab facility as she does not have any assistance at home she will continue to require therapy and pain control while she is in the hospital appreciate internal medicine's assistance with medical management. Will evaluate patient Attestations 2 Medical Necessity Statement*: Ongoing care status post left total hip Coding Level of Care Code Acute Code for Chg Fwd Diagnoses S/P total left hip arthroplasty Z96.642 Time Spent (min) 15
[2024-04-06 16:56] LABS: Glucose Point of Care 141 mg/dL (70-110)
[2024-04-06] MEDS: apixaban 5 mg Tablet 2.5 MG PO (17:27)
[2024-04-06 20:48] LABS: Glucose Point of Care 77 mg/dL (70-110)
[2024-04-06] MEDS: quetiapine 25 mg Tablet PO (22:25)
[2024-04-07] VITALS (14 sets, daily range): BP systolic 117–145; BP diastolic 57–71; PULSE 57–82; RESP 17–18; TEMP 36.6–36.9; O2SAT 91–98
[2024-04-07] MEDS: oxyCODONE 5 mg IR Tab/Cap PO ×5 (03:50→21:28)
[2024-04-07] MEDS: TRAMadol 50 mg Tablet PO ×4 (05:39→19:09)
[2024-04-07 06:17] LABS: Basophils % 0.6 %; Eosinophils # 0.1 10^3/uL (0.0-0.8); Eosinophils % 1.2 %; Hematocrit 26.5 % (36-47); Lymphocytes # 0.7 10^3/uL (0.8-4.8); Lymphocytes % 13.1 %; Mean Corpuscular HGB Conc 31.3 g/dL (30-55); Mean Corpuscular Hemoglobin 29.2 pg (27-33); Mean Corpuscular Volume 93.3 fl (85-98); Mean Platelet Volume 11.6 fL (7.4-10.4); Monocytes # 0.5 10^3/uL (0.2-0.9); Monocytes % 10.4 %; Neutrophils # 3.87 10^3/uL (1.8-7.7); Neutrophils % 74.3 %; Nucleated Red Blood Cells % 0 %; Platelet Count 110 10^3/cmm (157-399); Red Blood Count 2.84 10^6/uL (3.85-5.65); Red Cell Distribution Width 14.9 % (12.1-15.1)
[2024-04-07 06:30] LABS: Glucose Point of Care 103 mg/dL (70-110)
[2024-04-07 06:31] LABS: Anion Gap 17.1 (5-19); Blood Urea Nitrogen 12 mg/dL (6-20); Calcium 9.7 mg/dL (8.5-10.5); Carbon Dioxide 23 mmol/L (22-29); Chloride 94 mmol/L (98-107); Glomerular Filtration Rate 74.2 mL/min (90-130); Glucose 93 mg/dL (65-115); Osmolality Calculated 269 mOsm/kg (285-295); Potassium 4.1 mmol/L (3.5-5.1); Sodium 130 mmol/L (136-145)
[2024-04-07] MEDS: levothyroxine 25 mcg Tablet PO (08:40)
[2024-04-07] MEDS: calcium carb-vit d 600mg/400unit 1 Tablet 1 EACH PO ×2 (08:40→17:09)
[2024-04-07] MEDS: atorvastatin 40 mg Tablet PO (08:40)
[2024-04-07] MEDS: multivitamin therapeutic Tablet 1 TAB PO (08:41)
[2024-04-07] MEDS: metoprolol tartrate 25 mg Tablet PO ×2 (08:41→17:10)
[2024-04-07] MEDS: folic acid 1 mg Tablet PO (08:41)
[2024-04-07] MEDS: sennosides-docusate Tablet 2 TAB PO ×2 (08:41→17:09)
[2024-04-07] MEDS: iron polysaccharide complex 150 mg Capsule PO ×2 (08:41→17:10)
[2024-04-07] MEDS: apixaban 5 mg Tablet 2.5 MG PO ×2 (08:41→17:09)
[2024-04-07] MEDS: thiamine 100 mg Tablet PO (08:41)
[2024-04-07] MEDS: lisinopril 10 mg Tablet PO ×2 (08:41→17:10)
[2024-04-07] MEDS: chlorhexidine gluconate 0.12% Btl 473 mL 30 ML MUCOUS MEM ×4 (08:44→21:29)
[2024-04-07] MEDS: mupirocin oint 22 gm 1 APPLIC NASAL ×2 (08:44→17:11)
[2024-04-07] MEDS: pantoprazole DR 40 mg Tablet PO (09:55)
--- NOTE | 2024-04-07 10:34 | P.PN_ITS ---
Subjective 2 Subjective: Reports more hip pain this morning. No jitteriness. No nausea vomiting or abdominal pain. Wants to go to nursing facility for rehab. Medications: Reviewed: Yes Vitals/I&O/Wt Last Vital Signs Temp 97.8 F 04/07/24 08:00 Pulse 78 04/07/24 08:00 Resp 17 04/07/24 08:39 BP 123/70 04/07/24 08:00 Pulse Ox 93 04/07/24 08:00 O2 Del Method BiPAP 04/07/24 08:00 O2 Flow Rate 1 04/05/24 13:59 04/06/24 04/07/24 04/07/24 22:59 06:59 14:59 Intake Total 820 / 1090 360 / 360 Balance 820 / 1090 360 / 360 Weight last 48 hrs Weight 81.148 kg Weight 81.012 kg Weight 80.739 kg Physical Exam 2 Narrative: General Exam is white female, no distress. No tremor Cardiovascular regular rate and rhythm, no murmur Lungs clear Abdomen is soft, nontender Extremities no cyanosis clubbing or edema, dressing present clean and dry left lower extremity Urinary Catheter Management: Fernandes: Cath Placed During This Visit: yes, but has since been removed by the nurse Reason for Continuing Indwelling Catheter: Decision to DC Catheter Date Urinary Catheter Removed: 04/06/24 Time Urinary Catheter Discontinued: 06:15 Data 04/07/24 05:34 04/07/24 05:34 A&P Assessment and plan (1) Degenerative joint disease of left hip: Postoperative day #2 left hip arthroplasty, without complication Eliquis will be used for DVT prophylaxis Has acute postoperative blood loss anemia. No need for transfusion currently. (2) Type 2 diabetes mellitus: Consistent carb diet Insulin sliding scale, mild (3) HTN (hypertension): Continue home medication of Altace, metoprolol. Blood pressure under better control (4) COPD (chronic obstructive pulmonary disease): DuoNeb as needed (5) Atrial fibrillation: On arrival to the floor, patient was found to be in A-fib with RVR. She reports past history of A-fib. After receiving metoprolol IV, she converted to sinus rhythm. Continue her home metoprolol. TSH and magnesium level were checked and normal. Continue Eliquis 2.5 mg twice daily. With her history of alcohol intake, thrombocytopenia, full dose anticoagulation could be associated with significant increase in bleeding. Potentially, as she improves this could be increased. Plan History of alcohol intake. No evidence of withdrawal here Mild hyponatremia. Fluids discontinued. Continue to monitor. 1 dose of Lasix today. Other medical problems as outlined in past medical history Eliquis will suffice for DVT prophylaxis Thank you for this consultation Will continue to follow Attestations 2 Medical Necessity Statement*: As per primary Coding Level of Care Code Acute Code for [facility] Fwd Diagnoses Degenerative joint disease of left hip M16.12 Type 2 diabetes mellitus E11.9 HTN (hypertension) I10 COPD (chronic obstructive pulmonary disease) J44.9 Atrial fibrillation I48.91
[2024-04-07] MEDS: FUROsemide 10 mg/mL SDV 2mL 20 MG IVP (11:02)
[2024-04-07 11:14] LABS: Glucose Point of Care 132 mg/dL (70-110)
--- NOTE | 2024-04-07 14:30 | P.PN_ITS ---
Subjective 2 Subjective: Patient seen and examined this morning progressing with therapy. Planning on either home with home health care versus rehab facility will continue to see how she progresses with therapy. Vitals/I&O/Wt Last Vital Signs Temp 98.2 F 04/08/24 15:21 Pulse 65 04/08/24 15:21 Resp 18 04/08/24 15:21 BP 108/73 04/08/24 15:21 Pulse Ox 94 04/08/24 15:21 O2 Del Method Room Air 04/08/24 11:59 O2 Flow Rate 1 04/05/24 13:59 04/08/24 04/08/24 04/08/24 06:59 14:59 22:59 Intake Total 600 / 600 Balance 600 / 600 Weight last 48 hrs Weight 178 lb 14.4 oz Weight 178 lb 14.4 oz Physical Exam 2 Narrative: Examination left hip dressings on in place good seal, normal postoperative swelling, satisfactory leg lengths the right hip dressing is clean dry and intact. She is able to wiggle the toes plantarflex and dorsiflex ankle sensations intact light touch distally. Distal pulses palpable compartments are soft compressible Urinary Catheter Management: Fernandes: Cath Placed During This Visit: yes, but has since been removed by the nurse Reason for Continuing Indwelling Catheter: Decision to DC Catheter Date Urinary Catheter Removed: 04/06/24 Time Urinary Catheter Discontinued: 06:15 Data 04/08/24 05:46 04/08/24 05:46 A&P Assessment and plan (1) S/P total left hip arthroplasty: Plan Postop day 2 A.m. labs reviewed Postoperative x-rays reviewed stable total hip arthroplasty PT/OT Anterior hip precautions Weight-bear as tolerated left lower extremity Change dressings as needed Pain control Internal medicine on board for medical management Case management for discharge planning Patient at this point in time she is progressing appropriately with therapy we will see how she does over the next day whether she needs rehab facility versus home with home health care. Attestations 2 Medical Necessity Statement*: Ongoing care status post left total hip arthroplasty Coding Level of Care Code Acute Code for Chg Fwd Diagnoses S/P total left hip arthroplasty Z96.642
[2024-04-07 16:26] LABS: Glucose Point of Care 163 mg/dL (70-110)
[2024-04-07] MEDS: insulin glargine 100 units/1 mL 25 UNIT SUBCUT (17:15)
[2024-04-07 20:57] LABS: Glucose Point of Care 129 mg/dL (70-110)
[2024-04-07] MEDS: quetiapine 25 mg Tablet PO (21:28)
[2024-04-07] MEDS: trazodone 50 mg Tablet PO (21:29)
[2024-04-08] VITALS (11 sets, daily range): BP systolic 98–118; BP diastolic 56–78; PULSE 65–90; RESP 16–19; TEMP 36.7–37.1; O2SAT 91–98
[2024-04-08] MEDS: oxyCODONE 5 mg IR Tab/Cap PO ×3 (03:07→12:01)
[2024-04-08] MEDS: TRAMadol 50 mg Tablet PO (05:35)
[2024-04-08 05:59] LABS: Basophils # 0.1 10^3/uL (0.0-0.1); Basophils % 0.8 %; Eosinophils # 0.2 10^3/uL (0.0-0.8); Eosinophils % 2.5 %; Hematocrit 27.4 % (36-47); Lymphocytes # 1.2 10^3/uL (0.8-4.8); Lymphocytes % 16.6 %; Mean Corpuscular HGB Conc 31.8 g/dL (30-55); Mean Corpuscular Hemoglobin 29.6 pg (27-33); Mean Corpuscular Volume 93.2 fl (85-98); Mean Platelet Volume 11.6 fL (7.4-10.4); Monocytes # 0.9 10^3/uL (0.2-0.9); Monocytes % 12.4 %; Neutrophils # 4.87 10^3/uL (1.8-7.7); Neutrophils % 66.9 %; Nucleated Red Blood Cells % 0 %; Platelet Count 164 10^3/cmm (157-399); Red Blood Count 2.94 10^6/uL (3.85-5.65); White Blood Count 7.28 10^3/uL (3.29-11.43)
[2024-04-08 06:21] LABS: Anion Gap 20.2 (5-19); Blood Urea Nitrogen 14 mg/dL (6-20); Calcium 9.8 mg/dL (8.5-10.5); Carbon Dioxide 22 mmol/L (22-29); Chloride 93 mmol/L (98-107); Creatinine Clr Calc Pharmacy 70.4075; Glomerular Filtration Rate 64.8 mL/min (90-130); Glucose 135 mg/dL (65-115); Osmolality Calculated 275 mOsm/kg (285-295); Potassium 4.2 mmol/L (3.5-5.1); Sodium 131 mmol/L (136-145)
[2024-04-08 06:34] LABS: Glucose Point of Care 143 mg/dL (70-110)
[2024-04-08] MEDS: pantoprazole DR 40 mg Tablet PO (08:16)
[2024-04-08] MEDS: multivitamin therapeutic Tablet 1 TAB PO (08:17)
[2024-04-08] MEDS: sennosides-docusate Tablet 2 TAB PO (08:17)
[2024-04-08] MEDS: apixaban 5 mg Tablet 2.5 MG PO (08:17)
[2024-04-08] MEDS: lisinopril 10 mg Tablet PO (08:17)
[2024-04-08] MEDS: iron polysaccharide complex 150 mg Capsule PO (08:17)
[2024-04-08] MEDS: metoprolol tartrate 25 mg Tablet PO (08:17)
[2024-04-08] MEDS: atorvastatin 40 mg Tablet PO (08:17)
[2024-04-08] MEDS: levothyroxine 25 mcg Tablet PO (08:17)
[2024-04-08] MEDS: calcium carb-vit d 600mg/400unit 1 Tablet 1 EACH PO (08:17)
[2024-04-08] MEDS: folic acid 1 mg Tablet PO (08:18)
[2024-04-08] MEDS: thiamine 100 mg Tablet PO (08:18)
[2024-04-08] MEDS: mupirocin oint 22 gm 1 APPLIC NASAL (08:18)
[2024-04-08] MEDS: chlorhexidine gluconate 0.12% Btl 473 mL 30 ML MUCOUS MEM ×2 (08:18→12:02)
[2024-04-08] MEDS: insulin glargine 100 units/1 mL 25 UNIT SUBCUT (08:26)
--- NOTE | 2024-04-08 09:20 | P.PN_ITS ---
Subjective 2 Subjective: Bharti reports she is doing okay. Still having some pain. Eager to go to skilled care. Medications: Reviewed: Yes Vitals/I&O/Wt Last Vital Signs Temp 98.0 F 04/08/24 08:04 Pulse 80 04/08/24 08:04 Resp 18 04/08/24 08:15 BP 118/78 04/08/24 08:24 Pulse Ox 91 04/08/24 08:04 O2 Del Method Room Air 04/08/24 08:04 O2 Flow Rate 1 04/05/24 13:59 04/07/24 04/08/24 04/08/24 22:59 06:59 14:59 Intake Total 960 / 1560 480 / 480 Balance 960 / 1560 480 / 480 Weight last 48 hrs Weight 81.148 kg Weight 81.148 kg Physical Exam 2 Narrative: General Exam is white female, no distress. No tremor Cardiovascular regular rate and rhythm, no murmur Lungs clear Abdomen is soft, nontender Extremities no cyanosis clubbing or edema, dressing present clean and dry left lower extremity Urinary Catheter Management: Fernandes: Cath Placed During This Visit: yes, but has since been removed by the nurse Reason for Continuing Indwelling Catheter: Decision to DC Catheter Date Urinary Catheter Removed: 04/06/24 Time Urinary Catheter Discontinued: 06:15 Data 04/08/24 05:46 04/08/24 05:46 A&P Assessment and plan (1) Degenerative joint disease of left hip: Postoperative day #3 left hip arthroplasty, without complication Eliquis will be used for DVT prophylaxis Has acute postoperative blood loss anemia. No need for transfusion currently. Hemoglobin stable (2) Type 2 diabetes mellitus: Consistent carb diet Insulin sliding scale, mild (3) HTN (hypertension): Continue home medication of Altace, metoprolol. Blood pressure under better control (4) COPD (chronic obstructive pulmonary disease): DuoNeb as needed (5) Atrial fibrillation: On arrival to the floor, patient was found to be in A-fib with RVR. She reports past history of A-fib. After receiving metoprolol IV, she converted to sinus rhythm. Continue her home metoprolol. TSH and magnesium level were checked and normal. Continue Eliquis 2.5 mg twice daily. With her history of alcohol intake, thrombocytopenia, full dose anticoagulation could be associated with significant increase in bleeding. Potentially, as she improves this could be increased. Plan History of alcohol intake. No evidence of withdrawal here Mild hyponatremia. Sodium slightly improved. Overall stable. Other medical problems as outlined in past medical history Eliquis will suffice for DVT prophylaxis Thank you for this consultation Will continue to follow Attestations 2 Medical Necessity Statement*: As per primary Diagnoses Degenerative joint disease of left hip M16.12 Type 2 diabetes mellitus E11.9 HTN (hypertension) I10 COPD (chronic obstructive pulmonary disease) J44.9 Atrial fibrillation I48.91 Time Spent (min) 24
[2024-04-08 11:35] LABS: Glucose Point of Care 133 mg/dL (70-110)
--- NOTE | 2024-04-08 15:24 | P.DS_ITS ---
Discharge Providers Date of Admission: 04/05/24 10:07 Date of Discharge: April 08, 2024 Attending Provider at Admission: Grover Robbins DO Attending Provider at Discharge: Grover Robbins DO Consults: Dr. Beal?hospitalist Primary Care Provider: Ana Maria Flores MD Diagnoses at Discharge Discharge Diagnosis (1) Degenerative joint disease of left hip: Status: Resolved (2) Type 2 diabetes mellitus: Status: Acute (3) HTN (hypertension): Status: Acute (4) COPD (chronic obstructive pulmonary disease): Status: Acute (5) Atrial fibrillation: Status: Acute Reason for Visit Reason for Visit: m16.12 Brief History: Status post left total hip arthroplasty Hospital Course Hospital Course Patient was brought to the hospital through the preoperative holding area with plan for left total hip arthroplasty for left hip dengerative joint disease. Once cleared by anesthesia for surgery subsequently was taken back to the operative suite underwent anesthesia per the anesthesia department and then underwent left total hip arthroplasty with Lincoln robotic assistance anterior approach without any complications. Patient was then subsequently taken back to PACU in stable condition recovering well. Once recovered, patient was then subsequently admitted to the floor postoperatively. Internal medicine was consulted for medical management assistance. Patient weightbearing as tolerated to the right lower extremity, anterior hip precautions. PT/OT. Pain control. DVT prophylaxis. Postoperative antibiotics and TXA. dressing was change as needed. Internal medicine was on board and appreciate their medical management and assistance. Pt was determined on postoperative day 3 the patient was stable for discharge from orthopedic as well as internal medicine standpoint. Patient's labs were monitored daily. Patient will receive appropriate pain medication as well as DVT prophylaxis postoperatively. Appropriate discharge instructions as well. Patient was then discharged in stable condition. Patient will discharge home. Pt will follow-up with Orthopedics in the office in 2 weeks. Patient understands and agrees with current plan. All questions answered. Understands there is any issues or concerns and contact the office. Physical Exam Narrative: Examination left hip dressings on in place good seal, normal postoperative swelling, satisfactory leg lengths the right hip dressing is clean dry and intact. She is able to wiggle the toes plantarflex and dorsiflex ankle sensations intact light touch distally. Distal pulses palpable compartments are soft compressible Urinary Catheter Management: Fernandes: Cath Placed During This Visit: yes, but has since been removed by the nurse Reason for Continuing Indwelling Catheter: Decision to DC Catheter Date Urinary Catheter Removed: 04/06/24 Time Urinary Catheter Discontinued: 06:15 Discharge Data Studies Completed and Pending Completed Studies During Hospitalization Category Date Time Status XR hip LT 2-3V wo/w pel* [id number] Routine Exams 04/05/24 10:49 Completed Radiology Impressions Hip/Pelvis X-Ray 04/05/24 10:49 IMPRESSION: Total left hip arthroplasty without abnormality. Laboratory Results WBC 7.28 10^3/uL (3.29-11.43) 04/08/24 05:46 RBC 2.94 10^6/uL (3.85-5.65) L 04/08/24 05:46 Hgb 8.70 g/dL (11.27-16.99) L 04/08/24 05:46 Hct 27.4 % (36-47) L 04/08/24 05:46 MCV 93.2 fl (85-98) 04/08/24 05:46 MCH 29.6 pg (27-33) 04/08/24 05:46 MCHC 31.8 g/dL (30-55) 04/08/24 05:46 RDW 15.0 % (12.1-15.1) 04/08/24 05:46 Plt Count 164 10^3/cmm (157-399) D 04/08/24 05:46 MPV 11.6 fL (7.4-10.4) H 04/08/24 05:46 Neut % (Auto) 66.9 % 04/08/24 05:46 Lymph % (Auto) 16.6 % 04/08/24 05:46 Vilas % (Auto) 12.4 % 04/08/24 05:46 Eos % (Auto) 2.5 % 04/08/24 05:46 Baso % (Auto) 0.8 % 04/08/24 05:46 Neut # (Auto) 4.87 10^3/uL (1.8-7.7) 04/08/24 05:46 Lymph # (Auto) 1.2 10^3/uL (0.8-4.8) 04/08/24 05:46 Vilas # (Auto) 0.9 10^3/uL (0.2-0.9) 04/08/24 05:46 Eos # (Auto) 0.2 10^3/uL (0.0-0.8) 04/08/24 05:46 Baso # (Auto) 0.1 10^3/uL (0.0-0.1) 04/08/24 05:46 Nucleated RBC % (auto) 0 % 04/08/24 05:46 Nucleated RBCs # 0.0 /100WBC 04/08/24 05:46 PT 17.40 SECONDS (12.1-14.9) H 04/06/24 10:21 INR 1.38 (0.8-1.2) H 04/06/24 10:21 Sodium 131 mmol/L (136-145) L 04/08/24 05:46 Potassium 4.2 mmol/L (3.5-5.1) 04/08/24 05:46 Chloride 93 mmol/L (98-107) L 04/08/24 05:46 Carbon Dioxide 22 mmol/L (22-29) 04/08/24 05:46 Anion Gap 20.2 (5-19) H 04/08/24 05:46 BUN 14 mg/dL (6-20) 04/08/24 05:46 Creatinine 0.9 mg/dL (0.5-0.9) 04/08/24 05:46 GFR Calculation 64.8 mL/min (90-130) L 04/08/24 05:46 Glucose 135 mg/dL (65-115) H 04/08/24 05:46 POC Glucose 133 mg/dL (70-110) H 04/08/24 11:26 Calculated Osmolality 275 mOsm/kg (285-295) L 04/08/24 05:46 Calcium 9.8 mg/dL (8.5-10.5) 04/08/24 05:46 Magnesium 2.2 mg/dL (1.7-2.3) 04/05/24 06:33 Total Bilirubin 0.8 mg/dL (0.15-1.2) 04/06/24 05:57 Direct Bilirubin 0.20 mg/dL (0.00-0.30) 04/06/24 05:57 AST 65 U/L (0-32) H 04/06/24 05:57 ALT 32 U/L (0-33) 04/06/24 05:57 Alkaline Phosphatase 92 U/L (35-105) 04/06/24 05:57 Total Protein 6.4 g/dL (6.6-8.7) L 04/06/24 05:57 Albumin 3.9 g/dL (3.5-5.2) 04/06/24 05:57 Globulin 2.5 g/dL (1.3-4.6) 04/06/24 05:57 TSH 3.17 uIU/mL (0.27-4.20) 04/05/24 06:33 Blood Type A Positive 04/05/24 06:33 Rho(D) Type Rh positive 04/05/24 06:33 Antibody Screen Negative 04/05/24 06:33 Vitals Last Vital Signs Temp 98.2 F 04/08/24 15:21 Pulse 65 04/08/24 15:21 Resp 18 04/08/24 15:21 BP 108/73 04/08/24 15:21 Pulse Ox 94 04/08/24 15:21 O2 Del Method Room Air 04/08/24 11:59 O2 Flow Rate 1 04/05/24 13:59 Discharge Plan Discharge Patient Disposition: Home Condition: Stable Prescriptions: New Eliquis 2.5 mg tablet 2.5 mg PO BID 35 Days Qty: 70 0RF calcium carbonate-vitamin D3 [Calcium 600 + D(3)] 600 mg-10 mcg (400 unit) tablet 1 tab PO DAILY 30 Days Qty: 30 0RF Continued metoprolol tartrate 25 mg tablet 25 mg PO BID levothyroxine 25 mcg capsule 25 mcg PO DAILY acetaminophen [Tylenol Extra Strength] 500 mg tablet 500 mg PO BID ramipril [Altace] 2.5 mg capsule 2.5 mg PO BID (DME) diabetic shoes with 3 inserts See Rx Instructions .Route .MEDSUPPLY Qty: 1 0RF Rx Instructions: As directed to the shoe junior potassium chloride 10 mEq tablet extended release 10 meq PO DAILY trazodone 50 mg tablet 50 mg PO BEDTIME PRN (Reason: sleep) Qty: 30 3RF Rx Instructions: May take one tablet at bedtime as needed for sleep quetiapine [Seroquel] 25 mg tablet 25 mg PO BEDTIME Qty: 30 3RF Rx Instructions: Take one tablet at bedtime insulin glargine [Lantus Solostar U-100 Insulin] 100 unit/mL (3 mL) insulin pen 50 unit SUBCUT BID famotidine [Acid Washerette Machine Operator (famotidine)] 20 mg tablet 20 mg PO DAILY atorvastatin 40 mg tablet 40 mg PO DAILY baclofen 10 mg tablet 10 mg PO TID Trulicity 0.75 mg/0.5 mL pen injector 0.75 mg SUBCUT .weekly Rx Instructions: ON FRIDAY Jardiance 10 mg tablet 10 mg PO DAILY albuterol sulfate 90 mcg/actuation HFA aerosol inhaler 2 inh INHALATION Q4H PRN (Reason: shortness of breath or wheezing) Qty: 18 0RF insulin aspart U-100 [Novolog FlexPen U-100 Insulin] 100 unit/mL (3 mL) insulin pen 10 unit SUBCUT BID PRN (Reason: DIABETES) Rx Instructions: PER SLIDING SCALE furosemide 20 mg tablet 20 mg PO DAILY PRN (Reason: Only with weight gain) Qty: 10 0RF No Action cephalexin 500 mg capsule 500 mg PO Q8H 7 Days Qty: 21 0RF hydrocodone-acetaminophen 10-325 mg tablet 1 tab PO Q6H PRN (Reason: pain) 5 Days Qty: 20 0RF Discharge Orders: Discharge Order (Routine); Ordered 04/08/24 Ordered By: Grover Robbins Referrals: Ana Maria Flores MD [Primary Care Provider] - 04/14/24 11:15 am (Follow up of AFIB) Grover Robbins DO [Physician] - 05/07/24 8:15 am Discharge Diet: Regular Discharge Activity: Limit activity as instructed and Use walker/crutches as instructed Patient Instructions: Oxycodone, Rapid Release (By mouth), Apixaban (By mouth), Acute Wound Care (DC), Joint Replacement Surgery (DC), Joint Replacement Stoplight, Opioid Safety, Post Anesthesia Care Activity Restrictions/Additional Instructions: Orthopedic discharge instructions Left hip dressing--Gustavo Dressing--Keep dressing on and dry. After 3 days you can remove some of the dressing and shower. disconnect battery pack when showering. Gustavo dressing will stay on until follow up appt in 2 weeks. The battery pack for the dressing will at 5-7 days. Battery pack can be removed and discarded once batteries . Patient should keep dressings clean dry and intact Okay to shower over dressings if they do become wet these should be removed and new dressings applied Right hip dressing--Keep incisions clean dry and intact, leave Silverlon bandage dressings on in place for 7 days after that may rinse incisions with warm soapy water pat dry and redress with a dry dressing Weight-bear as tolerated to operative lower extremity Anterior hip precautions as instructed by physical therapy Ice as needed for pain and swelling Take pain medication as prescribed Take antinausea medication as needed Supplement with Citracal vitamin D for bone health and healing Pain medication can cause constipation. take [id number] stool softeners and or MiraLAX. Take blood thinner as prescribed (Eliquis) Follow-up in the orthopedic office in 2 weeks Contact the office for any questions or concerns Discharge Attestations Time Spent in Discharge Care*: less than 30 min Quality Metrics Clinical Quality Measures [ No reported AMI, CVA or VTE this stay] Coding Level of Care Code Acute Code for Chg Fwd Diagnoses Degenerative joint disease of left hip M16.12 Type 2 diabetes mellitus E11.9 HTN (hypertension) I10 COPD (chronic obstructive pulmonary disease) J44.9 Atrial fibrillation I48.91 Time Spent (min) 25
--- NOTE | 2024-04-08 15:56 | PC.NURSE ---
Discharge instructions provided to pt and her mother. NO questions or concerns at this time. Pt to private vehicle via wheelchair with all belongings.
== END 2024-04-08 15:56 | disposition home or self-care (01) ==
LOC: MEDSURG 10:10
PROVIDERS: Internal Medicine; Physician Assistant; Admitting Provider Student in an Organized Health Care Education/Training Program; PCP Internal Medicine; Visit Provider Student in an Organized Health Care Education/Training Program
PROC: 8E0Y0CZ Robotic Assisted Procedure of Lower Extremity, Open Approach (ICD-10-PCS; CPT 27130; principal; 2024-04-05 07:00)
DX: M16.12 Unilateral primary osteoarthritis, left hip (principal); E11.9 Type 2 diabetes mellitus without complications; Z79.4 Long term (current) use of insulin; I10 Essential (primary) hypertension; E03.9 Hypothyroidism, unspecified; K21.9 Gastro-esophageal reflux disease without esophagitis; G47.33 Obstructive sleep apnea (adult) (pediatric); I48.91 Unspecified atrial fibrillation
CPT/HCPCS: 27130; 20985; 36415; 36416; 73502; 76000; 80048; 80076; 82962; 83735; 84443; 85025; 85610; 86850; 86900; 93005; 96372; 97116; 97161; 97165; 97530; 97535; C1713; C1776; G0378; J0131; J0690; J1100; J1171; J1815; J1885; J1940; J2405; J2704; J3010; J3370; J3411; J3490; J7030; J7120

== ENCOUNTER 2024-04-14 15:02 | Outpatient (CLI) | payer MEDICARE, SELFPAY ==
--- NOTE | 2024-04-14 15:04 | USCV_ITS ---
Melinda Bharti Age: 54 Gender: F : 1970 Exam Date: 04/14/2024 15:49 Ordering Phys: Ana Maria Flores MD Technologist: [employer] Exam Location: [facility] [place] Indication: pain/swelling PROCEDURES: Venous duplex imaging was performed in only the left lower extremity. The following venous structures were evaluated: common femoral vein, profunda vein, proximal portion of the greater saphenous vein, superficial femoral vein, and the popliteal vein. In addition, the posterior tibial and peroneal trunk were evaluated. FINDINGS: No evidence of DVT seen in any vessel visualized at this time. Normal 2-D Doppler and augmentation and compressibility throughout the lower extremity venous structures. Additional imaging through the proximal calf veins also reveals no thrombus. Limited evaluation of the greater saphenous vein is patent with no thrombus. CONCLUSIONS No DVT left lower extremity. Dr. Francoise Quintanilla DO (Electronically Signed) Final Date: 14 April 2024 16:14 S
== END 2024-04-14 15:03 | disposition home or self-care (01) ==
LOC: RAD 15:03
PROVIDERS: Family Provider Student in an Organized Health Care Education/Training Program; PCP Internal Medicine; Visit Provider Internal Medicine
DX: R22.42 Localized swelling, mass and lump, left lower limb (principal); M79.662 Pain in left lower leg
CPT/HCPCS: 93971

== ENCOUNTER → 2024-04-19 13:15 | Outpatient (BNVA) | payer MEDICARE, SELFPAY | PROVIDERS: PCP Internal Medicine; Visit Provider Podiatrist Foot & Ankle Surgery | DX: E11.8 Type 2 diabetes mellitus with unspecified complications (principal); M20.11 Hallux valgus (acquired), right foot; E11.69 Type 2 diabetes mellitus with other specified complication; Z79.4 Long term (current) use of insulin | CPT/HCPCS: 99213 ==

== ENCOUNTER → 2024-04-20 15:23 | Outpatient (BNVA) | payer MEDICARE, SELFPAY | PROVIDERS: PCP Internal Medicine; Visit Provider Physician Assistant | DX: Z96.642 Presence of left artificial hip joint (principal) | CPT/HCPCS: 73502; 99024 ==

== ENCOUNTER → 2024-05-04 11:33 | Outpatient (BNVA) | payer MEDICARE, SELFPAY | PROVIDERS: PCP Internal Medicine; Visit Provider Student in an Organized Health Care Education/Training Program | DX: T81.31XA Disruption of external operation (surgical) wound, not elsewhere classified, initial encounter; Y83.8 Other surgical procedures as the cause of abnormal reaction of the patient, or of later complication, without mention of misadventure at the time of the procedure; Z96.642 Presence of left artificial hip joint | CPT/HCPCS: 99024 ==

== ENCOUNTER → 2024-05-18 10:46 | Outpatient (BNVA) | payer MEDICARE, SELFPAY | PROVIDERS: PCP Internal Medicine; Visit Provider Physician Assistant | DX: Z96.642 Presence of left artificial hip joint (principal); T81.31XD Disruption of external operation (surgical) wound, not elsewhere classified, subsequent encounter; X58.XXXD Exposure to other specified factors, subsequent encounter | CPT/HCPCS: 73502; 99024 ==